=== PATIENT | male | born 1935 | race Caucasian/White ===

== ENCOUNTER 2019-11-25 09:17 | Outpatient (CLI) | payer MEDICARE, SELFPAY ==
[2019-11-25 13:16] LABS: Blood Urea Nitrogen 17 mg/dL (9-20); Carbon Dioxide 28 mmol/L (22-30); Chloride 105 mmol/L (98-107); Cholesterol 135 mg/dL (0-200); Estimated Glomerular Filt Rate > 60; Glucose 98 mg/dL (75-110); HDL Direct 40 mg/dL; Potassium 4.5 mmol/L (3.4-5.0); Sodium 137 mmol/L (137-145); Triglycerides 55 mg/dL (<150)
[2019-11-25 13:26] LABS: LDL Cholesterol Direct 88 mg/dL
[2019-11-25 14:26] LABS: Hemoglobin A1C 5.9 % (<5.7)
== END 2019-11-25 09:18 | disposition home or self-care (01) ==
LOC: ANHWCLAB 09:23
PROVIDERS: PCP Internal Medicine; Visit Provider Internal Medicine
DX: E78.2 Mixed hyperlipidemia (principal); R73.03 Prediabetes; Z79.899 Other long term (current) drug therapy
CPT/HCPCS: 36415; 80048; 80061; 83036

== ENCOUNTER 2020-03-11 08:37 | Outpatient (CLI) | payer MEDICARE, SELFPAY ==
--- NOTE | 2020-03-11 | EST_ITS ---
Patient Info Name: Jarrell Stephens Age: 84 years : 1935 Gender: Male Ht: 70 in Wt: 170 lbs BSA: 1.96 m2 Exam Date: 03/11/2020 10:14 AM Exam Location: [facility] Stress Patient Status: Outpatient Admit Date: 03/11/2020 Staff Ordering Physician: Carlos Garcia MD Attending Provider: Carlos Garcia MD Exercise Physician: Alex Myers DO Exam Type: CA stress regina w NM Study Info A regadenoson stress test was performed. Summary 1. 1. Negative lexiscan stress test for ischemic ST changes by ECG criteria. 2. 2. Stable hemodynamics throughout the test. 3. 3. Nuclear scan to follow and will be reported separately. Please correlate with it. 4. 4. Patient informed of the above results. Protocol: Lexiscan Stress ECG Details Stage: REST Duration (min): 2 min : 31 sec HR (bpm): 74 SBP (mmHg): 117 DBP (mmHg): 66 Stage: REST Duration (min): 26 min : 53 sec HR (bpm): 70 SBP (mmHg): 117 DBP (mmHg): 66 Stage: STAGE 1 Duration (min): 1 min : 0 sec HR (bpm): 90 SBP (mmHg): 122 DBP (mmHg): 65 Stage: RECOVERY Duration (min): 1 min : 0 sec HR (bpm): 97 SBP (mmHg): 122 DBP (mmHg): 65 Stage: RECOVERY Duration (min): 2 min : 0 sec HR (bpm): 94 SBP (mmHg): 122 DBP (mmHg): 65 Stage: RECOVERY Duration (min): 3 min : 0 sec HR (bpm): 84 SBP (mmHg): 136 DBP (mmHg): 64 Stage: RECOVERY Duration (min): 3 min : 1 sec HR (bpm): 84 SBP (mmHg): 136 DBP (mmHg): 64 Rest HR: 70 bpm Peak HR: 103 bpm Rest Sys BP: 117 mmHg Peak Sys BP: 136 mmHg Max Pred HR: 138 bpm % Max Pred HR: 75 % Target HR: 117 bpm Max RPP: 14,008 bpm*mmHg Termination Reason: Completed protocol Cardiac Symptoms: Shortness of breath Total Time: 1 min : 0 sec Rest Waggoner BP: 66 mmHg Peak Waggoner BP: 64 mmHg Total Dose: 0.4 mg Resting ECG Sinus rhythm, IVCD. Stress ECG No ST changes. Arrhythmias None. Report Signatures
--- NOTE | ~2020-03-11 | NM_ITS ---
EXAMINATION: NM regina stress w perfusion DATE: 03/11/2020 14:30 INDICATION: Calcification of coronary artery TECHNIQUE: Rest images were obtained following intravenous administration of 10 mCi Tc99m tetrofosmin (Myoview). The patient was infused intravenously with Lexiscan (Regadenoson). Then, 29.3 mCi Tc99m t etrofosmin (Myoview) was administered intravenously, and stress images were obtained in supine positi on. Additional stress images were obtained in prone position. Data was reconstructed into short axis and horizontal and vertical long axis SPECT images. Gated SPECT images were also obtained. COMPARISON: None. FINDINGS: Likely diaphragmatic attenuation artifact at the mid inferior and mid inferoseptal gomes of both the rest and stress supine images which normalizes on prone imaging. There is no definite reversible or f ixed perfusion abnormality to suggest ischemia or infarction. There is normal left ventricular chamb er size, wall motion and ejection fraction. Left ventricular ejection fraction measures 67%. IMPRESSION: 1. Normal myocardial perfusion at rest and during stress. 2. Left ventricular ejection fraction measuring 67%. Reviewed, dictated and finalized at location A.
== END 2020-03-11 08:38 | disposition home or self-care (01) ==
PROVIDERS: PCP Internal Medicine; Visit Provider Internal Medicine
DX: I25.10 Atherosclerotic heart disease of native coronary artery without angina pectoris (principal)
CPT/HCPCS: 78452; 93017; A9502; J2785

== ENCOUNTER 2020-03-23 08:24 | Outpatient (CLI) | payer MEDICARE, SELFPAY ==
[2020-03-23 09:12] LABS: Blood Urea Nitrogen 17 mg/dL (9-20); Calcium 8.7 mg/dL (8.4-10.2); Carbon Dioxide 27 mmol/L (22-30); Chloride 103 mmol/L (98-107); Cholesterol 140 mg/dL (0-200); Estimated Glomerular Filt Rate > 60; Glucose 105 mg/dL (75-110); HDL Direct 34 mg/dL; Potassium 4.4 mmol/L (3.4-5.0); Sodium 138 mmol/L (137-145); Triglycerides 75 mg/dL (<150)
[2020-03-23 09:13] LABS: Basophils Absolute Auto 0.1 K/mm3 (0.0-0.1); Basophils Percent Auto 0.8 % (0.2-1.2); Eosinophils Absolute Auto 0.2 K/mm3 (0-0.3); Eosinophils Percent Auto 2.7 % (0-4.4); Hematocrit 48.9 % (42.0-52.0); Hemoglobin 15.8 g/dL (14.0-18.0); Immature Granulocyte Absolute 0.02 K/mm3 (0.00-0.031); Immature Granulocyte Percent A 0.3 % (0-0.5); Lymphocytes Absolute Auto 0.99 K/mm3 (0.9-3.2); Lymphocytes Percent Auto 15.9 % (18.3-44.2); Mean Corpuscular HGB Conc 32.3 g/dl (32-36); Mean Corpuscular Hemoglobin 29.6 pg (26-34); Mean Corpuscular Volume 91.6 fl (80-100); Mean Platelet Volume 9.9 fl (7.4-10.4); Monocytes Absolute Auto 0.7 K/mm3 (0.1-0.6); Monocytes Percent Auto 10.6 % (2.6-8.5); Neutrophils Absolute Auto 4.4 K/mm3 (1.3-6.7); Neutrophils Percent Auto 69.7 % (45.5-73.1); Platelet Count Result 245 k/mm3 (150-375); Red Blood Count 5.34 M/mm3 (4.6-6.20); White Blood Count 6.2 K/mm3 (4.5-10.0)
[2020-03-23 09:23] LABS: LDL Cholesterol Direct 82 mg/dL
[2020-03-23 09:35] LABS: Hemoglobin A1C 6.1 % (<5.7)
== END 2020-03-23 08:25 | disposition home or self-care (01) ==
PROVIDERS: PCP Internal Medicine; Visit Provider Internal Medicine
DX: R73.03 Prediabetes (principal); E78.2 Mixed hyperlipidemia
CPT/HCPCS: 36415; 80048; 80061; 83036; 85025

== ENCOUNTER 2020-08-07 07:17 | Outpatient (CLI) | payer MEDICARE, SELFPAY ==
[2020-08-07 07:32] LABS: Basophils Absolute Auto 0.1 K/mm3 (0.0-0.1); Basophils Percent Auto 1.1 % (0.2-1.2); Eosinophils Absolute Auto 0.1 K/mm3 (0-0.3); Eosinophils Percent Auto 2.6 % (0-4.4); Hematocrit 48.9 % (42.0-52.0); Hemoglobin 16.1 g/dL (14.0-18.0); Immature Granulocyte Absolute 0.02 K/mm3 (0.00-0.031); Immature Granulocyte Percent A 0.4 % (0-0.5); Lymphocytes Absolute Auto 0.99 K/mm3 (0.9-3.2); Lymphocytes Percent Auto 18.2 % (18.3-44.2); Mean Corpuscular HGB Conc 32.9 g/dl (32-36); Mean Corpuscular Hemoglobin 30.3 pg (26-34); Mean Corpuscular Volume 91.9 fl (80-100); Mean Platelet Volume 9.2 fl (7.4-10.4); Monocytes Absolute Auto 0.6 K/mm3 (0.1-0.6); Monocytes Percent Auto 10.9 % (2.6-8.5); Neutrophils Absolute Auto 3.6 K/mm3 (1.3-6.7); Neutrophils Percent Auto 66.8 % (45.5-73.1); Platelet Count Result 220 k/mm3 (150-375); Red Blood Count 5.32 M/mm3 (4.6-6.20); Red Cell Distribution Width 13.2 % (11.5-14.5); White Blood Count 5.4 K/mm3 (4.5-10.0)
[2020-08-07 07:44] LABS: Potassium 4.7 mmol/L (3.4-5.0)
[2020-08-07 07:45] LABS: Alanine Aminotransferase 17 U/L (4-50); Alkaline Phosphatase 80 U/L (38-126); Anion Gap 7 mmol/L (8-16); Aspartate Amino Transferase 25 U/L (17-59); Bilirubin,Total 0.5 mg/dL (0.2-1.3); Blood Urea Nitrogen 22 mg/dL (9-20); Calcium 8.9 mg/dL (8.4-10.2); Carbon Dioxide 32 mmol/L (22-30); Chloride 103 mmol/L (98-107); Cholesterol 136 mg/dL (0-200); Estimated Glomerular Filt Rate > 60; Glucose 109 mg/dL (75-110); HDL Direct 39 mg/dL; Sodium 142 mmol/L (137-145); Triglycerides 62 mg/dL (<150)
[2020-08-07 07:56] LABS: LDL Cholesterol Direct 78 mg/dL
[2020-08-07 08:15] LABS: Hemoglobin A1C 5.8 % (<5.7); Thyroid Stimulating Hormone 0.905 uIU/mL (0.465-4.680)
== END 2020-08-07 07:18 | disposition home or self-care (01) ==
PROVIDERS: PCP Internal Medicine; Visit Provider Internal Medicine
DX: E78.5 Hyperlipidemia, unspecified (principal); J44.9 Chronic obstructive pulmonary disease, unspecified; Z51.81 Encounter for therapeutic drug level monitoring; Z79.899 Other long term (current) drug therapy; R73.03 Prediabetes
CPT/HCPCS: 36415; 80053; 80061; 83036; 84443; 85025

== ENCOUNTER → 2020-09-29 09:13 | Outpatient (REF) | payer MEDICARE, SELFPAY | LOC: ANHLAB 09:13 | PROVIDERS: PCP Internal Medicine; Visit Provider Nurse Practitioner | DX: C44.529 Squamous cell carcinoma of skin of other part of trunk (principal); C44.629 Squamous cell carcinoma of skin of left upper limb, including shoulder | CPT/HCPCS: 88305 ==

== ENCOUNTER → 2020-11-16 09:04 | Outpatient (REF) | payer MEDICARE, SELFPAY | LOC: ANHLAB 09:04 | PROVIDERS: PCP Internal Medicine; Visit Provider Nurse Practitioner | DX: C44.529 Squamous cell carcinoma of skin of other part of trunk (principal); C44.629 Squamous cell carcinoma of skin of left upper limb, including shoulder | CPT/HCPCS: 88305; 88331 ==

== ENCOUNTER 2020-12-31 08:06 | Outpatient (CLI) | payer MEDICARE, SELFPAY ==
[2020-12-31 09:07] LABS: Anion Gap 4 mmol/L (8-16); Blood Urea Nitrogen 16 mg/dL (9-20); Calcium 8.9 mg/dL (8.4-10.2); Carbon Dioxide 33 mmol/L (22-30); Chloride 103 mmol/L (98-107); Cholesterol 138 mg/dL (0-200); Estimated Glomerular Filt Rate > 60; Glucose 99 mg/dL (75-110); HDL Direct 39 mg/dL; Potassium 4.3 mmol/L (3.4-5.0); Sodium 140 mmol/L (137-145); Triglycerides 65 mg/dL (<150)
[2020-12-31 09:18] LABS: LDL Cholesterol Direct 82 mg/dL
[2020-12-31 09:32] LABS: Hemoglobin A1C 5.8 % (<5.7)
[2021-01-02 23:36] LABS: Homocysteine 14.8 umol/L (<11.4)
[2021-01-03 23:02] LABS: Vitamin D 1,25 (OH)2 Total 39 pg/mL (18-72); Vitamin D2 1,25 (OH)2 <8 pg/mL; Vitamin D3 1,25 (OH)2 39 pg/mL
== END 2020-12-31 08:07 | disposition home or self-care (01) ==
PROVIDERS: PCP Internal Medicine; Visit Provider Internal Medicine
DX: E55.9 Vitamin D deficiency, unspecified (principal); R73.03 Prediabetes; R79.89 Other specified abnormal findings of blood chemistry; E78.2 Mixed hyperlipidemia; Z79.899 Other long term (current) drug therapy
CPT/HCPCS: 36415; 80048; 80061; 82652; 83036; 83090; 84443

== ENCOUNTER 2021-05-21 07:41 | Outpatient (CLI) | payer MEDICARE, SELFPAY ==
[2021-05-21 08:57] LABS: Basophils Percent Auto 0.5 % (0.2-1.2); Eosinophils Absolute Auto 0.2 K/mm3 (0-0.3); Eosinophils Percent Auto 2.6 % (0-4.4); Hematocrit 47.9 % (42.0-52.0); Hemoglobin 15.5 g/dL (14.0-18.0); Immature Granulocyte Absolute 0.01 K/mm3 (0.00-0.031); Immature Granulocyte Percent A 0.2 % (0-0.5); Lymphocytes Absolute Auto 0.92 K/mm3 (0.9-3.2); Lymphocytes Percent Auto 15.7 % (18.3-44.2); Mean Corpuscular HGB Conc 32.4 g/dl (32-36); Mean Corpuscular Hemoglobin 30.3 pg (26-34); Mean Corpuscular Volume 93.7 fl (80-100); Mean Platelet Volume 9.4 fl (7.4-10.4); Monocytes Absolute Auto 0.6 K/mm3 (0.1-0.6); Monocytes Percent Auto 9.9 % (2.6-8.5); Neutrophils Absolute Auto 4.2 K/mm3 (1.3-6.7); Neutrophils Percent Auto 71.1 % (45.5-73.1); Platelet Count Result 234 k/mm3 (150-375); Red Blood Count 5.11 M/mm3 (4.6-6.20); Red Cell Distribution Width 12.8 % (11.5-14.5); White Blood Count 5.9 K/mm3 (4.5-10.0)
[2021-05-21 09:11] LABS: Anion Gap 7 mmol/L (8-16); Blood Urea Nitrogen 18 mg/dL (9-20); Calcium 8.7 mg/dL (8.4-10.2); Carbon Dioxide 28 mmol/L (22-30); Chloride 103 mmol/L (98-107); Cholesterol 134 mg/dL (0-200); Estimated Glomerular Filt Rate > 60; Glucose 95 mg/dL (65-110); HDL Direct 37 mg/dL; Potassium 4.1 mmol/L (3.4-5.0); Sodium 138 mmol/L (137-145); Triglycerides 49 mg/dL (<150)
[2021-05-21 09:21] LABS: LDL Cholesterol Direct 71 mg/dL
[2021-05-21 10:26] LABS: Free T4 Free Thyroxine 1.13 ng/mL (0.78-2.19)
[2021-05-24 21:08] LABS: Homocysteine 12.3 umol/L (<11.4)
== END 2021-05-21 07:42 | disposition home or self-care (01) ==
PROVIDERS: PCP Internal Medicine; Visit Provider Internal Medicine
DX: E78.2 Mixed hyperlipidemia (principal); Z79.899 Other long term (current) drug therapy; R73.03 Prediabetes; R79.89 Other specified abnormal findings of blood chemistry
CPT/HCPCS: 36415; 80048; 80061; 83036; 83090; 84439; 84443; 85025

== ENCOUNTER 2021-10-05 07:08 | Outpatient (CLI) | payer MEDICARE, SELFPAY ==
[2021-10-05 08:03] LABS: Basophils Absolute Auto 0.1 K/mm3 (0.0-0.1); Basophils Percent Auto 0.8 % (0.2-1.2); Eosinophils Absolute Auto 0.3 K/mm3 (0-0.3); Eosinophils Percent Auto 4.8 % (0-4.4); Hematocrit 49.1 % (42.0-52.0); Hemoglobin 16.2 g/dL (14.0-18.0); Immature Granulocyte Absolute 0.03 K/mm3 (0.00-0.031); Immature Granulocyte Percent A 0.5 % (0-0.5); Lymphocytes Absolute Auto 0.86 K/mm3 (0.9-3.2); Lymphocytes Percent Auto 14.2 % (18.3-44.2); Mean Corpuscular Hemoglobin 30.7 pg (26-34); Mean Platelet Volume 9.4 fl (7.4-10.4); Monocytes Absolute Auto 0.6 K/mm3 (0.1-0.6); Monocytes Percent Auto 10.2 % (2.6-8.5); Neutrophils Absolute Auto 4.2 K/mm3 (1.3-6.7); Neutrophils Percent Auto 69.5 % (45.5-73.1); Platelet Count Result 261 k/mm3 (150-375); Red Blood Count 5.28 M/mm3 (4.6-6.20); Red Cell Distribution Width 12.8 % (11.5-14.5); White Blood Count 6.1 K/mm3 (4.5-10.0)
[2021-10-05 08:15] LABS: Alanine Aminotransferase 18 U/L (4-50); Albumin Level 4.2 g/dL (3.5-5.1); Alkaline Phosphatase 96 U/L (38-126); Anion Gap 7 mmol/L (8-16); Aspartate Amino Transferase 25 U/L (17-59); Bilirubin,Total 0.5 mg/dL (0.2-1.3); Blood Urea Nitrogen 16 mg/dL (9-20); Carbon Dioxide 32 mmol/L (22-30); Chloride 101 mmol/L (98-107); Cholesterol 159 mg/dL (0-200); Estimated Glomerular Filt Rate 58; Glucose 104 mg/dL (65-110); HDL Direct 36 mg/dL; Potassium 4.2 mmol/L (3.4-5.0); Sodium 140 mmol/L (137-145); Triglycerides 62 mg/dL (<150)
[2021-10-05 08:26] LABS: LDL Cholesterol Direct 92 mg/dL
[2021-10-05 08:28] LABS: Hemoglobin A1C 5.8 % (<5.7)
[2021-10-05 08:49] LABS: Add Urine Microscopic? NO; Appearance Urine Clear (Clear); Bilirubin Urine Negative (Negative); Blood Urine Negative (Negative); Color Urine Yellow (Yellow); Glucose Urine UA Negative (Negative); Ketones Urine Negative (Negative); Leukocyte Esterase Ur Negative LEU/UL (Negative); Nitrate Urine Negative (Negative); Protein Urine Negative (Negative); Urobilinogen Urine Negative mg/dL (<2.0)
== END 2021-10-05 07:09 | disposition home or self-care (01) ==
PROVIDERS: PCP Internal Medicine; Visit Provider Internal Medicine
DX: R73.03 Prediabetes (principal); E78.2 Mixed hyperlipidemia; E55.9 Vitamin D deficiency, unspecified; Z13.29 Encounter for screening for other suspected endocrine disorder; Z79.899 Other long term (current) drug therapy
CPT/HCPCS: 36415; 80053; 80061; 81003; 82306; 83036; 84439; 84443; 85025

== ENCOUNTER 2022-02-22 09:13 | Outpatient (CLI) | payer MEDICARE, SELFPAY ==
[2022-02-22 09:31] LABS: Basophils Absolute Auto 0.1 K/mm3 (0.0-0.1); Basophils Percent Auto 0.8 % (0.2-1.2); Eosinophils Absolute Auto 0.1 K/mm3 (0-0.3); Eosinophils Percent Auto 1.3 % (0-4.4); Hematocrit 46.8 % (42.0-52.0); Hemoglobin 15.8 g/dL (14.0-18.0); Immature Granulocyte Absolute 0.03 K/mm3 (0.00-0.031); Immature Granulocyte Percent A 0.4 % (0-0.5); Lymphocytes Absolute Auto 0.87 K/mm3 (0.9-3.2); Lymphocytes Percent Auto 12.1 % (18.3-44.2); Mean Corpuscular HGB Conc 33.8 g/dl (32-36); Mean Corpuscular Hemoglobin 30.6 pg (26-34); Mean Corpuscular Volume 90.5 fl (80-100); Mean Platelet Volume 9.3 fl (7.4-10.4); Monocytes Absolute Auto 0.7 K/mm3 (0.1-0.6); Monocytes Percent Auto 9.3 % (2.6-8.5); Neutrophils Absolute Auto 5.5 K/mm3 (1.3-6.7); Neutrophils Percent Auto 76.1 % (45.5-73.1); Platelet Count Result 251 k/mm3 (150-375); Red Blood Count 5.17 M/mm3 (4.6-6.20); Red Cell Distribution Width 12.8 % (11.5-14.5); White Blood Count 7.2 K/mm3 (4.5-10.0)
[2022-02-22 09:58] LABS: Alanine Aminotransferase 14 U/L (6-50); Albumin Level 4.1 g/dL (3.5-5.1); Alkaline Phosphatase 95 U/L (38-126); Anion Gap 5 mmol/L (8-16); Aspartate Amino Transferase 21 U/L (17-59); Bilirubin,Total 0.5 mg/dL (0.2-1.3); Blood Urea Nitrogen 18 mg/dL (9-20); Calcium 8.5 mg/dL (8.4-10.2); Carbon Dioxide 30 mmol/L (22-30); Chloride 104 mmol/L (98-107); Cholesterol 141 mg/dL (0-200); Estimated Glomerular Filt Rate > 60; Glucose 95 mg/dL (65-110); HDL Direct 36 mg/dL; Potassium 4.5 mmol/L (3.4-5.0); Sodium 139 mmol/L (137-145); Triglycerides 46 mg/dL (<150)
[2022-02-22 10:00] LABS: Hemoglobin A1C 5.8 % (<5.7)
[2022-02-22 10:09] LABS: LDL Cholesterol Direct 85 mg/dL
[2022-02-22 10:21] LABS: Free T4 Free Thyroxine 0.98 ng/mL (0.78-2.19)
== END 2022-02-22 09:14 | disposition home or self-care (01) ==
LOC: ANHLAB 09:15
PROVIDERS: PCP Internal Medicine; Visit Provider Internal Medicine
DX: Z79.899 Other long term (current) drug therapy (principal); E78.2 Mixed hyperlipidemia; Z13.29 Encounter for screening for other suspected endocrine disorder; R73.03 Prediabetes
CPT/HCPCS: 36415; 80053; 80061; 83036; 84439; 84443; 85025

== ENCOUNTER 2022-04-16 14:06 | Inpatient (IN) | payer MEDICARE, SELFPAY ==
[2022-04-16] VITALS (23 sets, daily range): BP systolic 100–144; BP diastolic 63–83; PULSE 79–106; RESP 16–33; TEMP 36.9–37.7; O2SAT 95–100; BMI 22.4
--- NOTE | ~2022-04-16 | CT_ITS ---
EXAMINATION: CTA chest PE protocol DATE: 04/17/2022 15:29 INDICATION: chest pain, Dyspnea TECHNIQUE: Computed tomography angiography (CTA) of the chest was performed with 100 mL Omnipaque-350 intravenous contrast timed to evaluate the pulmonary arteries. Coronal maximum intensity projection 3D-reconstructions were created by the technologist. The dose-length product (DLP) was 375.80 mGy-cm. Automated exposure control and iterative reconstruction technique were employed. COMPARISON: CT thorax 04/17/2007. Chest x-ray 04/16/2022. FINDINGS: Lung parenchyma and airways: Stable calcified scarring in the left upper lobe. Nodular soft tissue de nsity/scar posterior right lower lobe superior segment. 1.4 cm pulmonary nodule in the medial left lo wer lobe with eccentric calcification. Severe emphysematous change and bibasilar atelectasis. Pleura: Unremarkable. Thoracic inlet, axillae and chest wall: Unremarkable. Thoracic aorta: Mild ectasia and arch calcification. Mediastinum: Chronic enlargement calcification of a subcarinal lymph node. Otherwise normal. Heart and pericardium: Normal. Coronary artery calcifications: Mild. Upper abdomen: No significant finding. Bones: No acute osseous finding. Pulmonary arteries: Study quality: Adequate. No pulmonary emboli detected. IMPRESSION: No CT evidence of acute pulmonary embolus. 1.4 cm medial left lower lobe pulmonary nodule. Nodular sc arring/infectious changes versus pleural-based mass in the superior segment right lower lobe. Further evaluation is recommended with either PET/CT, CT-guided biopsy, or follow-up contrast-enhanced chest CT in 3 months. Reviewed, dictated and finalized at location K. IMPRESSION: No CT evidence of acute pulmonary embolus. 1.4 cm medial left lower lobe pulmon evan nodule. Nodular scarring/infectious changes versus pleural-based mass in th e superior segment right lower lobe. Further evaluation is recommended with eit her PET/CT, CT-guided biopsy, or follow-up contrast-enhanced chest CT in 3 allen hs.
--- NOTE | ~2022-04-16 | XR_ITS ---
EXAMINATION: XR chest 2V Exam Date/Time: 04/16/2022 14:29 CDT HISTORY: sob Comparison: 10/13/2014 and 04/05/2007. RESULT: Lines, tubes, and devices: None. Lungs and pleura: Emphysema, left upper lobe scar. Right midlung and bibasilar scar/atelectasis. Sen escent change. Cardiomediastinal silhouette: Stable. Other: No acute osseous or upper abdominal finding. IMPRESSION: No acute cardiopulmonary process. Reviewed, dictated and finalized at location K.
--- NOTE | ~2022-04-16 | XR_ITS ---
EXAMINATION: XR chest 1V portable DATE: 04/18/2022 06:37 INDICATION: Dyspnea. TECHNIQUE: A single frontal view of the chest was obtained on 2 radiographs. COMPARISON: Chest 2 views 04/16/2022, chest CT 04/17/2022 FINDINGS: There are lucencies in the lungs, consistent with emphysema. There is bandlike scarring in left upper lobe. There are mild airspace opacities in right midlung zone and the lower lung zones. No pleural effusion or pneumothorax. The heart size is normal. IMPRESSION: 1. Stable mild airspace opacities in right midlung zone and the lower lung zones, consistent with ate lectasis/scarring versus pneumonia. 2. Severe emphysema. Reviewed, dictated and finalized at location A. IMPRESSION: 1. Stable mild airspace opacities in right midlung zone and the lower lung zone s, consistent with atelectasis/scarring versus pneumonia. 2. Severe emphysema.
--- NOTE | 2022-04-16 14:11 | ECG_ITS ---
Measurements Intervals [place] Rate: 102 P: 86 TN: 153 QRS: 45 QRSD: 93 T: 67 QT: 306 QTc: 400 Interpretive Statements BASELINE MOTION ARTIFACT SINUS TACHYCARDIA LEFTWARD AXIS LOW VOLTAGE IN THE LIMB LEADS BORDERLINE ECG NO PREVIOUS ECG AVAILABLE FOR COMPARISON Electronically Signed On 04-17-2022 8:18:42 CDT by Ranjith Emerson M.D.
[2022-04-16 14:32] LABS: Basophils Percent Auto 0.4 % (0.2-1.2); Eosinophils Percent Auto 0.1 % (0-4.4); Hematocrit 48.2 % (42.0-52.0); Hemoglobin 15.8 g/dL (14.0-18.0); Immature Granulocyte Absolute 0.03 K/mm3 (0.00-0.031); Immature Granulocyte Percent A 0.3 % (0-0.5); Lymphocytes Absolute Auto 0.66 K/mm3 (0.9-3.2); Lymphocytes Percent Auto 6.6 % (18.3-44.2); Mean Corpuscular HGB Conc 32.8 g/dl (32-36); Mean Corpuscular Hemoglobin 29.4 pg (26-34); Mean Corpuscular Volume 89.8 fl (80-100); Mean Platelet Volume 9.2 fl (7.4-10.4); Monocytes Absolute Auto 0.7 K/mm3 (0.1-0.6); Monocytes Percent Auto 6.8 % (2.6-8.5); Neutrophils Absolute Auto 8.6 K/mm3 (1.3-6.7); Neutrophils Percent Auto 85.8 % (45.5-73.1); Platelet Count Result 255 k/mm3 (150-375); Red Blood Count 5.37 M/mm3 (4.6-6.20); Red Cell Distribution Width 12.7 % (11.5-14.5)
[2022-04-16 14:41] LABS: Alanine Aminotransferase 24 U/L (6-50); Albumin Level 4.2 g/dL (3.5-5.1); Alkaline Phosphatase 101 U/L (38-126); Anion Gap 9 mmol/L (8-16); Aspartate Amino Transferase 32 U/L (17-59); Bilirubin,Total 0.8 mg/dL (0.2-1.3); Blood Urea Nitrogen 14 mg/dL (9-20); Calcium 8.9 mg/dL (8.4-10.2); Carbon Dioxide 26 mmol/L (22-30); Chloride 100 mmol/L (98-107); Estimated CRCL calculation 65 ml/min; Estimated Glomerular Filt Rate > 60; Glucose 167 mg/dL (65-110); Potassium 4.4 mmol/L (3.4-5.0); Sodium 135 mmol/L (137-145)
[2022-04-16 15:08] LABS: SARS-CoV-2 RNA PCR Negative
--- NOTE | 2022-04-16 16:17 | ECG_ITS ---
Measurements Intervals [place] Rate: 86 P: 65 HI: 150 QRS: 23 QRSD: 98 T: 68 QT: 339 QTc: 408 Interpretive Statements SINUS RHYTHM EARLY REPOLARIZATION COMPARED TO ECG 04/16/2022 14:17:12 NO SIGNIFICANT CHANGE, CURRENT ECG IS OF BETTER QUALITY Electronically Signed On 04-17-2022 8:20:08 CDT by Ranjith Emerson M.D.
[2022-04-16 16:45] LABS: D Dimer 0.56 ug/mL (<0.48)
[2022-04-16 16:57] LABS: Troponin I < 0.012 ng/mL (0.000-0.034)
[2022-04-16] MEDS: HEPARIN SOD/D5W 100 UNITS/ML 25,000 UNITS/250 ML BAG 9 UNITS IV CONT (16:58)
[2022-04-16] MEDS: HEPARIN SODIUM 5,000 UNITS/ML VIAL 4000 UNITS IV PUSH (16:59)
[2022-04-16] MEDS: ASPIRIN 81 MG CHEWABLE TABLET 324 MG PO (16:59)
--- NOTE | 2022-04-16 17:09 | ED.SOB ---
HPI - SOB/Dyspnea General Chief Complaint: Shortness of Breath/Dyspnea Stated Complaint: sob,chest, body aches Time Seen by Provider: 04/16/22 14:14 History of Present Illness HPI Narrative: 86yoM p/w 1wk of increasing dyspnea, worse with exertion. Denies any chest pain, n/v, diaphoresis. H/o COPD and CHF, hasn't tried inhalers, no leg swelling. Related Data Home Medications Medication Instructions Recorded Confirmed montelukast 10 mg tablet 10 mg PO DAILY 07/26/19 03/07/22 tiotropium bromide 18 mcg capsule 1 cap inhalation DAILY 07/26/19 03/07/22 with inhalation device (Spiriva with HandiHaler) trazodone 50 mg tablet 50 mg PO QHS PRN 01/13/21 03/07/22 fluticasone furoate 100 1 inh inhalation DAILY 03/04/22 03/07/22 mcg-vilanterol 25 mcg/dose inhalation powder (Breo Ellipta) Allergies Allergy/AdvReac Type Severity Reaction Status Date / Time No Known Allergies Allergy Verified 03/04/22 09:14 Review of Systems Review of Systems: CONST: No fever. HEENT: No sore throat C/V: No chest pain RESP: Shortness of breath GI: No abdominal pain : No dysuria. M/S: No joint pain. SKIN: No rash. NEURO: [No headache or focal numbness or weakness] PSYCH: [No depression] [facility] Past Medical History Medical History BMI 23.0-23.9, adult BMI 25.0-25.9,adult COPD (chronic obstructive pulmonary disease) Elevated homocysteine Encounter for Medicare annual wellness exam Encounter for routine adult health examination without abnormal findings Hearing loss Hx of colonic polyps Hyperlipidemia Lung nodule Non-healing skin lesion Non-healing wound On chcf drug therapy ROCKY on CPAP Pre-diabetes Family History Family History Mother Patient's mother is Social History Social History Smoking status: Former smoker Smoking end date: 09/11/79 Alcohol intake: never Exam Narrative: EXAMINATION OF ORGAN SYSTEMS/BODY AREAS: Constitutional: Vital signs per nursing GENERAL:Appears dyspneic on exam HEAD: Normal with no signs of head trauma. EYES: EOMI, conjunctiva normal ENT: Hearing grossly intact LUNGS: Labored respirations speaking in 3 word sentences HEART: Tachycardic ABD: [Soft], [nontender to palpation] EXT: Normal range of motion, no WESLEY SKIN: [No rashes or lesions.] NEURO: [Alert and oriented x 3. No gross focal sensory or strength deficits.] PSYCH: Normal affect Course Vital Signs Vital signs: Vital Signs Temperature 99.9 F H 04/16/22 14:12 Pulse Rate 106 H 04/16/22 14:12 Respiratory Rate 33 H 04/16/22 14:12 Blood Pressure 134/74 04/16/22 14:12 Pulse Oximetry 95 04/16/22 14:12 Oxygen Delivery Nasal Cannula 04/16/22 14:12 Oxygen Flow Rate 4 04/16/22 14:12 Temperature 99.9 F H 04/16/22 14:12 Pulse Rate 89 04/16/22 16:18 Respiratory Rate 20 04/16/22 16:18 Blood Pressure 105/64 04/16/22 16:18 Pulse Oximetry 98 04/16/22 16:18 Oxygen Delivery BiPAP 04/16/22 14:40 Oxygen Flow Rate 4 04/16/22 14:27 MDM - SOB/Dyspnea MDM Narrative Medical decision making narrative: 86-year-old male presenting with increasing dyspnea over the past week. Vital signs notable for elevated temperature, respiratory rate, and heart rate. My differential includes pneumonia, COPD or CHF exacerbation, PE, ACS/DC. Given the patient's dyspnea, I did place him on BiPAP. Initial EKG by my interpretation does not show any acute STEMI, though there is a very wandering baseline despite several attempts due to the patient's work of breathing. Therefore obtained a second EKG after patient had been on BiPAP, when he is now resting comfortably without any labored respirations. Repeat EKG on my interpretation shows dynamic changes and now shows acute STEMI, with ST elevations in inferior leads and ST depression in
[2022-04-16 17:12] LABS: INR 1.2; Prothrombin Time 14.7 Seconds (11.1-14.7)
[2022-04-16 17:13] LABS: Partial Thromboplastin Time 28.8 SECONDS (22.3-36.8)
--- NOTE | 2022-04-16 18:04 | PM.IMHP ---
H&P: HPI History of Present Illness Date/Time: 04/16/22 18:04 Chief Complaint: Shortness of breath/intermittent chest pain Narrative: this is an 86-year-old man I am seeing briefly as he is being prepared for emergency coronary angiography as STEMI has been declared an activated by the ER physician. The patient has no previous history of coronary artery disease. He came to the emergency room with episodes of chest pain that have been intermittent for the last several days. He also was experiencing significant air hunger since last week which became more severe today. He was in the emergency room for a couple of hours and his 1st electrocardiogram was benign although it did have some motion artifact. A 2nd electrocardiogram was done which was interpreted by the ER physician as showing acute inferior current of injury with reciprocal depression was then summoned to come in and perform an emergency angiogram. My personal review of EKG honestly I do not sure that opinion I do not see any evidence of an acute current of injury. I was told that he had a history of previous coronary artery disease and intervention. 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 His EMR chart here with his primary care physician reports a history of COPD prediabetes dyslipidemia but no prior history of overt vascular disease. 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 ROCKY on CPAP Pre-diabetes Family History Family History Mother Patient's mother is Social History Social History Smoking status: Former smoker Smoking end date: 09/11/79 Alcohol intake: never Meds Home Medications and Allergies Home Medications Medication Instructions Recorded Confirmed Type montelukast 10 mg tablet 10 mg PO DAILY 07/26/19 03/07/22 History tiotropium bromide 18 mcg capsule 1 cap inhalation DAILY 07/26/19 03/07/22 History with inhalation device (Spiriva with HandiHaler) trazodone 50 mg tablet 50 mg PO QHS PRN 01/13/21 03/07/22 History atorvastatin 20 mg tablet See Rx Instructions .Route 11/22/21 03/07/22 Rx .COMPLEX #90 tabs fluticasone furoate 100 1 inh inhalation DAILY 03/04/22 03/07/22 History mcg-vilanterol 25 mcg/dose inhalation powder (Breo Ellipta) Allergies Allergy/AdvReac Type Severity Reaction Status Date / Time No Known Allergies Allergy Verified 03/04/22 09:14 Vital Signs Vital Signs - 24 hr 04/16/22 14:12 04/16/22 14:26 04/16/22 14:27 Temperature 37.7 C H Pulse Rate 106 H 102 H Respiratory Rate 33 H Blood Pressure 134/74 Pulse Oximetry 95 97 Oxygen Delivery Nasal Cannula Nasal Cannula Oxygen Flow Rate 4 4 04/16/22 14:27 04/16/22 14:40 04/16/22 15:18 Temperature Pulse Rate 102 H 94 Respiratory Rate 31 H 20 Blood Pressure 126/69 Pulse Oximetry 97 99 98 Oxygen Delivery Nasal Cannula BiPAP Oxygen Flow Rate 4 04/16/22 16:18 04/16/22 17:23 Temperature Pulse Rate 89 98 Respiratory Rate 20 18 Blood Pressure 105/64 112/69 Pulse Oximetry 98 98 Oxygen Delivery Oxygen Flow Rate Exam Const: General: comfortable and no acute distress Other: Elderly white
--- NOTE | 2022-04-16 18:10 | WPDCARDPROC ---
Cardiac Cath Procedure Note Date of procedure:: 04/16/22 Performing physician:: Ranjith Emerson MD Indication:: ST-elevation [place] declared by ED Brief clinical history:: this is an 86-year-old man who came to the emergency room earlier today reporting episodes of some intermittent chest pain as well as dyspnea. STEMI was declared by the ED staff and patient was brought to the laboratory immunologist in that setting. Procedure Procedure performed:: Emergency coronary angiography left ventriculography right femoral angiography Sedation/Medication given:: fentanyl 25 mg Versed 2 mg case start time 5:39 p.m. case end time 5:59 p.m. Access site:: right femoral artery Estimated blood loss:: 25 cc Procedure note:: this patient was brought to the cardiac catheterization lab in the emergency setting where the right groin was prepped and draped in the usual fashion. Anesthesia was provided with 1% lidocaine infiltrated locally. Using the modified Seldinger technique the femoral artery was punctured and a 5 Togolese vascular sheath was placed. After this I used a 5 Togolese FL4 catheter to engage and inject the left coronary artery in multiple projections. There was tortuosity in the iliac vessel on the advancing this catheter into the central aorta so all subsequent catheter exchanges were carried out in the descending abdominal aorta over the guidewire. I attempted to engage the right coronary artery using a JR4 catheter this was unsuccessful I engaged the right coronary artery nicely with a WRP catheter for angiography. Following this a left ventriculogram was done with a 5 Togolese angled pigtail catheter and left-sided hemodynamics were demonstrated. Pullback pressures were demonstrated across the aortic valve. Procedure was then terminated the sheath was sutured into position the patient was taken to ICU for post cath recovery. Findings:: Hemodynamics: The central aortic pressure was 84 over 38 left ventricle 106/0 end-diastolic pressure of 8 there is 20 mm gradient on pullback across the aortic valve. Left ventricle: The left ventricle is normal in size all segments contract appropriately the global ejection fraction is 60-65%. The left main coronary artery is large in caliber and nicely patent the left anterior descending is a small to medium caliber the standing down to and just before the cardiac apex it turned Ty. The LAD has Mild luminal irregularity but no flow-limiting disease is identified. circumflex is a moderate caliber vessel giving rise to the marginal branches. The circumflex system also has minimal luminal irregularities but no flow-limiting disease is present. The right coronary artery is large in caliber and dominant to the posterior circulation. The right coronary artery has very mild atherosclerotic irregularities it is widely patent with no flow-limiting disease. Conclusion:: 1. Right coronary dominant circulation with no significant coronary artery disease 2. well-preserved left ventricular systolic function 3. mild aortic valve stenosis with 20 mm transvalvular gradient 4. false alarm activation for ST elevation [place] Ranjith Emerson MD [facility]
[2022-04-16 19:41] LABS: Basophils Percent Auto 0.4 % (0.2-1.2); Eosinophils Percent Auto 0.2 % (0-4.4); Hematocrit 45.5 % (42.0-52.0); Hemoglobin 14.9 g/dL (14.0-18.0); Immature Granulocyte Absolute 0.05 K/mm3 (0.00-0.031); Immature Granulocyte Percent A 0.5 % (0-0.5); Lymphocytes Absolute Auto 1.06 K/mm3 (0.9-3.2); Mean Corpuscular HGB Conc 32.7 g/dl (32-36); Mean Corpuscular Hemoglobin 29.7 pg (26-34); Mean Corpuscular Volume 90.8 fl (80-100); Mean Platelet Volume 8.9 fl (7.4-10.4); Monocytes Absolute Auto 1.2 K/mm3 (0.1-0.6); Monocytes Percent Auto 11.7 % (2.6-8.5); Neutrophils Absolute Auto 8.2 K/mm3 (1.3-6.7); Neutrophils Percent Auto 77.2 % (45.5-73.1); Platelet Count Result 244 k/mm3 (150-375); Red Blood Count 5.01 M/mm3 (4.6-6.20); White Blood Count 10.6 K/mm3 (4.5-10.0)
[2022-04-16 19:53] LABS: Partial Thromboplastin Time 40.2 SECONDS (22.3-36.8)
[2022-04-16 20:04] LABS: Troponin I < 0.012 ng/mL (0.000-0.034)
[2022-04-16] MEDS: SODIUM CHLORIDE 0.9% IV 1,000 ML 125 ML IV CONT (20:53)
--- NOTE | 2022-04-16 22:00 | WPDCN ---
Assessment and Plan Assessment and plan (1) Chest pain: Code(s): R07.9 - Chest pain, unspecified Status: Acute Assessment and Plan: STEMI activated in the emergency department though cardiac catheterization showed no significant disease. Chest pain may very well be related to over exertion recently may very well be musculoskeletal in etiology. No history to suggest a GI etiology. Pulmonary embolism seems less likely by history and his D-dimer is normal when corrected for age. While he has had increasing shortness of breath over the last 1 week, he does not really have complaints of that at this time. Continue to monitor overnight and if he is still symptomatic a CTA of the chest may be appropriate. (2) Chronic obstructive pulmonary disease: Code(s): J44.9 - Chronic obstructive pulmonary disease, unspecified Status: Acute Assessment and Plan: No evidence of acute exacerbation. (3) Chronic respiratory failure with hypoxia: Code(s): J96.11 - Chronic respiratory failure with hypoxia Status: Acute Assessment and Plan: He is at his home oxygen requirement. (4) Pre-diabetes: Code(s): R73.03 - Prediabetes Status: Acute Assessment and Plan: Recent hemoglobin A1c was under 6%. Additional Plan Thank you for allowing us to participate in this patient's care. Please do not hesitate to contact us with any questions. Supervising physician for this medical consultation is Dr. Brooklynn Shi HPI Data of Consult Date/Time: 04/16/22 20:00 Requesting Physician: Dr. Ranjith Emerson. Consult Narrative Reason for consult: Shortness of breath and chest pain. Narrative: This is a very pleasant 86-year-old male with chronic respiratory failure on 4 L nasal cannula, chronic lung disease with history of tuberculosis and asbestosis, COPD/ emphysema, sleep apnea, prediabetes, and hyperlipidemia who presented to the emergency department for evaluation of chest pain and shortness of breath. Despite his chronic lung disease and oxygen requirements, he is quite active and likes to stay busy. He [place] and mows 4 to 5 of those acres on a tractor mower in addition to mowing his neighbor's lawn. He also enjoys gardening and spends quite a bit of time outdoors. Two weeks ago he was outside mowing in the heat (between 10:00 to 20:00) and although he does carry some water with him, he does not think he had enough water and he started to feel tired and weak. He also had significant muscle cramps, mostly in his legs. He rested the next day and was feeling better the day after so and he spent about 5 hours outside in mid afternoon working in the vegetable garden. again it was very hot out and he assumes that he got overheated as he felt poorly when he got in doors with reports of chills and cramps once again. He was also experiencing a soreness throughout the anterior chest and he was feeling more short of breath than usual. The soreness in his chest seem to be worse with movement and palpation and he assumed he had sore muscles from all of the work he was doing in the heat. He once again rested for a couple of days but since that time he has continued to stay busy though he has been limiting the amount of time that he has been outside. 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 He went home early and he felt so weak that he had a hard time climbing up stairs into the house. He was also feeling quite short of breath and he felt a bit better when he turned his oxygen up to 5 L. Due to ongoing, intermittent symptoms he decided to come in today for evaluation. vital signs were stable on arrival to the emergency department. Labs were reviewed and they were reassuring. His initial EKG appeared benign thpepper
[2022-04-16 23:27] LABS: Troponin I < 0.012 ng/mL (0.000-0.034)
[2022-04-17] VITALS (16 sets, daily range): BP systolic 97–127; BP diastolic 55–72; PULSE 71–95; RESP 16–32; TEMP 36.3–36.8; O2SAT 88–100
[2022-04-17 04:39] LABS: Basophils Percent Auto 0.5 % (0.2-1.2); Eosinophils Percent Auto 0.3 % (0-4.4); Hematocrit 44.8 % (42.0-52.0); Hemoglobin 14.5 g/dL (14.0-18.0); Immature Granulocyte Absolute 0.05 K/mm3 (0.00-0.031); Immature Granulocyte Percent A 0.6 % (0-0.5); Lymphocytes Absolute Auto 0.81 K/mm3 (0.9-3.2); Lymphocytes Percent Auto 10.2 % (18.3-44.2); Mean Corpuscular HGB Conc 32.4 g/dl (32-36); Mean Corpuscular Hemoglobin 29.5 pg (26-34); Mean Corpuscular Volume 91.2 fl (80-100); Monocytes Percent Auto 12.2 % (2.6-8.5); Neutrophils Absolute Auto 6.1 K/mm3 (1.3-6.7); Neutrophils Percent Auto 76.2 % (45.5-73.1); Platelet Count Result 230 k/mm3 (150-375); Red Blood Count 4.91 M/mm3 (4.6-6.20)
[2022-04-17 04:47] LABS: Hemoglobin A1C 5.8 % (<5.7)
[2022-04-17 04:53] LABS: Anion Gap 8 mmol/L (8-16); Blood Urea Nitrogen 13 mg/dL (9-20); Calcium 8.3 mg/dL (8.4-10.2); Carbon Dioxide 25 mmol/L (22-30); Chloride 101 mmol/L (98-107); Creatine Kinase 91 U/L (55-170); Estimated CRCL calculation 62 ml/min; Estimated Glomerular Filt Rate > 60; Glucose 107 mg/dL (65-110); Magnesium 2.1 mg/dL (1.6-2.3); Potassium 4.3 mmol/L (3.4-5.0); Sodium 134 mmol/L (137-145)
[2022-04-17 05:31] LABS: Thyroid Stimulating Hormone Reflex 0.359 uIU/mL (0.465-4.68)
[2022-04-17] MEDS: FLUTICASONE/SALMETEROL 115-21 MCG INHALER 1 PUFF 2 PUFF INHALATION ×2 (08:14→20:54)
[2022-04-17] MEDS: UMECLIDINIUM BROMIDE 62.5 MCG ELLIPTA 1 PUFF INHALATION (08:18)
[2022-04-17] MEDS: ATORVASTATIN 20 MG TABLET BY MOUTH (09:24)
[2022-04-17] MEDS: ASPIRIN 81 MG ENTERIC TABLET PO (09:24)
--- NOTE | 2022-04-17 09:31 | WPDCNINT ---
Assessment and Plan Assessment and plan (1) Chest pain: Code(s): R07.9 - Chest pain, unspecified Status: Acute Assessment and Plan: Patient presented with chest pain along with shortness of breath, STEMI was activated in the ER and patient was taken to the cardiac logging rafter laborer and did not show any occlusive coronary disease. EF 60-65%. -pain this morning, shortness of breath has improved -continue supplemental oxygen -cardiology following the patient -continue aspirin, atorvastatin -cardiology following the patient (2) Chronic respiratory failure with hypoxia: Code(s): J96.11 - Chronic respiratory failure with hypoxia Status: Acute Assessment and Plan: Patient has a history of chronic respiratory failure on 4 L oxygen at home, has had a history of hemochromatosis and asbestosis -continue supplemental oxygen -continue bronchodilators -continue montelukast (3) Obstructive sleep apnea on CPAP: Code(s): G47.33 - Obstructive sleep apnea (adult) (pediatric); Z99.89 - Dependence on other enabling machines and devices Status: Acute Assessment and Plan: Will place patient on CPAP with home settings (4) Pre-diabetes: Code(s): R73.03 - Prediabetes Status: Acute Assessment and Plan: Hemoglobin A1c is 5.8 Additional Plan Patient may be transferred out of the ICU if okay with Cardiology Code status: Full code Critical care time spent: 37 minutes This dictation may have been done utilizing a voice recognition system. Attempts have been made to correct errors. However, there may be uncorrected grammatical, spelling, and recognition errors present. Due to a high probability of clinically significant, life threatening deterioration, the patient required my highest level of preparedness to intervene emergently and I personally spent this critical care time directly and personally managing the patient. This critical care time included obtaining a history; examining the patient; pulse oximetry; ordering and review of studies; arranging urgent treatment with development of a management plan; evaluation of patient's response to treatment; frequent reassessment; and discussions with other providers. It was exclusive of separately billable procedures and treating other patients and teaching time. Please see Assessment and Plan section and the rest of the note for further information on patient assessment and treatment Optics Manufacturing Technician Consult Note Consult date: 04/17/22 Reason for consult: Chest pain, status post cardiac catheterization for STEMI called in the ER. Status post cardiac catheterization with no occlusive disease, false alarm activation ST-elevation IN HPI: Jarrell Stephens is a 86 year old male with past medical history of hyperlipidemia, prediabetes, no history of coronary artery disease, history of chronic respiratory failure on 4 L nasal cannula, chronic lung disease with history of tuberculosis and asbestosis, COPD/emphysema, sleep apnea presented the ED with chest pain and shortness of breath intermittently going on for the last several days, patient was experiencing more chest pain and air hunger on the day of admission that prompted him to come to the ED on 04/16/2022. In the ED EKG showed possible inferior myocardial injury with reciprocal depressions, patient was taken to cardiac logging rafter laborer, no occlusive disease was visualized, likely a false alarm activation of STEMI. EF was 60-65%. Patient was transferred to the ICU for further management Patient seen examined this morning, denies any chest pain, shortness in bed abdominal pain, nausea, vomiting. Hemodynamically stable, patient did wear the BiPAP overnight. O2 sats have been good on 4 L nasal cannula. Urine output has been adequate, no complaints or issues overnight Review of Systems Review of Systems: All systems reviewed & are unremarkable except as noted in HPI and below PMFSH Past Medical History Medical History
--- NOTE | 2022-04-17 17:08 | PC.NURSE ---
reported received from Arin [facility] ICU
--- NOTE | 2022-04-17 17:43 | PC.NURSE ---
Addendum entered by Bambi Funez RN 04/17/22 18:58: This patient, Jarrell Stephens, was transfered to 3 Med Surg Room 317-01 from ICU7. Patient/family oriented to hospital policies and general routines including ID bracelet, bed and alarms, visiting hours, pain management, procedures, bathroom and other care routines, personal items, smoking policy, room service/diet, and visiting hours. Information on how to activate the Rapid Response Team has been discussed. Patient/Family are encouraged to report perceived risks to care and to ask questions if they do not understand what they are told or what they should do. Report received by Arin at 1744 pt arrived Original Note: This patient, Jarrell Stephens, was admitted to 3 Med Surg Room 317-01. Patient/family oriented to hospital policies and general routines including ID bracelet, bed and alarms, visiting hours, pain management, procedures, bathroom and other care routines, personal items, smoking policy, room service/diet, and visiting hours. Information on how to activate the Rapid Response Team has been discussed. Patient/Family are encouraged to report perceived risks to care and to ask questions if they do not understand what they are told or what they should do. Arrived at 1744, by Arin [facility] ICU.
--- NOTE | 2022-04-17 17:44 | PC.NURSE ---
pt has RYAN bilateral with charge, upper and lower dentures, and glasses.
--- NOTE | 2022-04-17 17:50 | PC.NURSE ---
pt arrived now, called dietary for meal tray.
--- NOTE | 2022-04-17 17:50 | PC.NURSE ---
unable to reach dietary, informed ICU nurse Arin to bring tray to pt.
--- NOTE | 2022-04-17 18:19 | PC.NURSE ---
icu nurse brought pt food
[2022-04-17] MEDS: MONTELUKAST SODIUM 10 MG TABLET PO (20:37)
[2022-04-18 06:00] VITALS: BP 103/63; PULSE 79; RESP 20; TEMP 36.6; O2SAT 97
[2022-04-18 06:22] LABS: Free T4 Free Thyroxine Reflex 1.34 ng/dL (0.78-2.19)
[2022-04-18 06:44] LABS: Basophils Absolute Auto 0.1 K/mm3 (0.0-0.1); Basophils Percent Auto 0.8 % (0.2-1.2); Eosinophils Absolute Auto 0.1 K/mm3 (0-0.3); Eosinophils Percent Auto 1.8 % (0-4.4); Hematocrit 43.9 % (42.0-52.0); Hemoglobin 14.2 g/dL (14.0-18.0); Immature Granulocyte Absolute 0.05 K/mm3 (0.00-0.031); Immature Granulocyte Percent A 0.7 % (0-0.5); Lymphocytes Absolute Auto 0.98 K/mm3 (0.9-3.2); Lymphocytes Percent Auto 12.9 % (18.3-44.2); Mean Corpuscular HGB Conc 32.3 g/dl (32-36); Mean Corpuscular Hemoglobin 29.5 pg (26-34); Mean Corpuscular Volume 91.1 fl (80-100); Mean Platelet Volume 9.5 fl (7.4-10.4); Monocytes Absolute Auto 1.1 K/mm3 (0.1-0.6); Monocytes Percent Auto 14.4 % (2.6-8.5); Neutrophils Absolute Auto 5.3 K/mm3 (1.3-6.7); Neutrophils Percent Auto 69.4 % (45.5-73.1); Platelet Count Result 236 k/mm3 (150-375); Red Blood Count 4.82 M/mm3 (4.6-6.20); White Blood Count 7.6 K/mm3 (4.5-10.0)
[2022-04-18 06:53] LABS: Alanine Aminotransferase 17 U/L (6-50); Albumin Level 3.5 g/dL (3.5-5.1); Alkaline Phosphatase 83 U/L (38-126); Anion Gap 6 mmol/L (8-16); Aspartate Amino Transferase 25 U/L (17-59); Bilirubin,Total 0.6 mg/dL (0.2-1.3); Blood Urea Nitrogen 16 mg/dL (9-20); Calcium 8.2 mg/dL (8.4-10.2); Carbon Dioxide 26 mmol/L (22-30); Chloride 101 mmol/L (98-107); Estimated CRCL calculation 56 ml/min; Estimated Glomerular Filt Rate > 60; Glucose 100 mg/dL (65-110); Magnesium 2.2 mg/dL (1.6-2.3); Phosphorus 2.9 mg/dL (2.5-4.5); Potassium 3.9 mmol/L (3.4-5.0); Sodium 133 mmol/L (137-145)
[2022-04-18 07:08] LABS: Total Triiodothyronine (T3) 1.09 NG/ML (0.97-1.69)
[2022-04-18 08:00] VITALS: O2SAT 95
[2022-04-18] MEDS: FLUTICASONE/SALMETEROL 115-21 MCG INHALER 1 PUFF 2 PUFF INHALATION (09:03)
[2022-04-18 09:06] VITALS: O2SAT 92
[2022-04-18] MEDS: ATORVASTATIN 20 MG TABLET BY MOUTH (09:25)
[2022-04-18] MEDS: ASPIRIN 81 MG ENTERIC TABLET PO (09:26)
[2022-04-18] MEDS: PERFLUTREN LIPID MICROSPHERES 1.5 ML VIAL DILUTED TO 10 ML TOTAL VOLUME IV PUSH (10:00)
--- NOTE | 2022-04-18 13:43 | PM.IMPN ---
Progress Note: A&P Assessment and Plan (1) Chest pain: Code(s): R07.9 - Chest pain, unspecified Status: Acute Assessment and Plan: Patient presented with chest pain along with shortness of breath. STEMI was activated in the ED and patient was taken to the cardiac manager labor delivery. Heart cath did not show any occlusive coronary disease. EF 60-65%. CTA chest showing no PE but does show1.4cm LLL pulmonary nodule, possible mass in RLL. Still with BRENNAN but no further chest pain. Okay to discharge home from a medical stand point. Will follow from afar. Thank you so much for allowing me to be a part of this patient's care. (2) Chronic respiratory failure with hypoxia: Code(s): J96.11 - Chronic respiratory failure with hypoxia Status: Acute Assessment and Plan: Patient has a history of chronic respiratory failure on 4 L oxygen at home. He has a history of hemochromatosis and asbestosis. Stable. Continue current treatment plan (3) Obstructive sleep apnea on CPAP: Code(s): G47.33 - Obstructive sleep apnea (adult) (pediatric); Z99.89 - Dependence on other enabling machines and devices Status: Acute Assessment and Plan: Auto CPAP started here. Patient tolerating well. (4) Pre-diabetes: Code(s): R73.03 - Prediabetes Status: Acute Assessment and Plan: A1c is 5.8. Glucose normal. (5) Chronic obstructive pulmonary disease: Code(s): J44.9 - Chronic obstructive pulmonary disease, unspecified Status: Acute Assessment and Plan: Stable. No wheezing. Continue current medical regimen. (6) Chronic lung disease: Code(s): J98.4 - Other disorders of lung Status: Acute Assessment and Plan: As above (7) Lung mass: Code(s): R91.8 - Other nonspecific abnormal finding of lung field Status: Acute Assessment and Plan: CT Chest results noted as above. Patient is followed by Dr Arechiga for known lung masses and these have not changed significnatly over the past few years. Patient also states he has had 2 negative PET scans as well. Patient to follow up with Dr Arechiga at next scheduled visit. Subjective Date/time seen: 04/18/22 13:43 Interval history: Hospitalist was consulted on 86yo male with COPD, DM and chronic respiratory failure on 4L here for CP. STEMI called but heart cath did not show evidence of acute coronary syndrome. Assuming care. Chart reviewed. Patient feels well. Denies chest pain or shortness of breath but does have some dyspnea on exertion when he walks to the bathroom. No nausea or vomiting. No problems overnight. Exam Narrative: AF 98.0 103/63 79 20 92% 4L Gen - NARD lying semi-recumbent in bed Chest - few scattered rhonchi, nml RR CV - RRR S1/S2. Abd - Soft, NT/ND, Positive BS Ext - No pedal edema. 2+ DP pulses bilaterally Neuro - Alert and oriented. Nonfocal exam. Psych - Nml mood and affect Skin - Warm and dry Objective Data Vital Signs Vital Signs: Vital Signs - 24 hr 04/17/22 14:25 04/17/22 17:45 04/17/22 18:00 Temperature 97.9 F Pulse Rate 82 82 71 Respiratory Rate 32 H 20 26 H Blood Pressure 109/55 L 103/57 L Pulse Oximetry 96 96 88 L Oxygen Delivery Nasal Cannula Oxygen Flow Rate 4 04/17/22 18:12 04/17/22 20:55 04/17/22 21:05 Temperature Pulse Rate 76 75 Respiratory Rate 16 Blood Pressure Pulse Oximetry 95 95 96 Oxygen Delivery Nasal Cannula CPAP Oxygen Flow Rate 4 04/17/22 22:00 04/18/22 06:00 04/18/22 09:06 Temperature 98.2 F 98 F Pulse Rate 75 79 Respiratory Rate 18 20 Blood Pressure 97/57 L 103/63 Pulse Oximetry 96 97 92 Oxygen Delivery Nasal Cannula Oxygen Flow Rate 4 04/18/22 08:00 Temperature Pulse Rate Respiratory Rate Blood Pressure Pulse Oximetry 95 Oxygen Delivery Nasal Cannula Oxygen Flow Rate 4 Intake/Output Intake/Output: Intake & Output 04/15/22 04/16/22
[2022-04-18 14:00] VITALS: BP 104/53; PULSE 78; RESP 20; TEMP 36.2; O2SAT 96
[2022-04-18] MEDS: DOCUSATE SODIUM 100 MG CAPSULE PO (15:15)
--- NOTE | 2022-04-18 23:47 | ECHO_ITS ---
Patient Info Name: Jarrell Stephens Age: 86 years : 1935 Gender: Male Ht: 71 in Wt: 161 lbs BSA: 1.91 m2 HR: 79 bpm BP: 103 / 63 mmHg Heart Rhythm: Sinus Rhythm Technical Quality: Fair Exam Date: 04/18/2022 9:19 AM Exam Location: [facility] Patient Status: Inpatient Admit Date: 04/16/2022 Staff Ordering Physician: Mariana Brown PA-C Parts Cleaner: Alivia Mckeon RDCS Attending Provider: Brooklynn Shi DO Referring Physician: Stephanie VIVEROS; Exam Type: CA echo dop color flow w con Study Info Indications R01.1 - Cardiac murmur, unspecified R07.89 - Other chest pain Complete two-dimensional, color flow and Doppler transthoracic echocardiogram is performed with contrast to opacify the left ventricle and to improve the deliniation of the left ventricle endocardial borders. Contrast/Agitated Saline Contrast/Ag. Saline: Definity Amount: 3.00 ml Administered By: Ailvia Mckeon RDCS Existing IV Access: Yes IV Access Condition: patent with no signs of infiltration Summary 1. Definity contrast injected to improve visualization. 2. Mild LVH with normal systolic function and grade 1 diastolic noncompliance. 3. Mild aortic valve stenosis with valve area calculated at 1.8 cm squared. Left Ventricle Left ventricular chamber dimension is normal. Left ventricular systolic function is normal, estimated at 65-70%. There is mild concentric increased left ventricular wall thickness. The left ventricular diastolic function is grade I diastolic dysfunction. Right Ventricle Right ventricular chamber dimension is normal. Left Atria Left atrial chamber dimension is normal. Right Atria Right atrial chamber dimension is normal. Aortic Valve The aortic valve is trileaflet. There is moderate aortic valve sclerosis. There is mild aortic valve stenosis with a peak velocity of 275.13 cm/s, mean gradient of 17 mmHg, and aortic valve area of 1.07 cm2. There is no aortic valve regurgitation. Pulmonic Valve The pulmonic valve is not well visualized. Mitral Valve The mitral valve has normal leaflets. Tricuspid Valve The tricuspid valve leaflets are normal. Pericardium/Pleural The pericardium appears normal. Aorta The aortic root size at the sinus of Valsalva is normal. Left Ventricular Outflow Tract Name Value Normal LVOT 2D LVOT Diameter 2.09 cm LVOT Doppler LVOT Peak Gradient 4 mmHg LVOT Mean Gradient 2 mmHg LVOT VTI 15.64 cm LVOT VTI/AV VTI Ratio 0.31 LVOT Stroke Volume 53.44 ml LVOT CO 3.85 l/min LVOT CI 2.01 L/min/m2 Pulmonic Valve Name Value Normal RVOT Doppler
--- NOTE | 2022-05-23 10:32 | PM.DS ---
DS: Admitting Diagnosis Discharge Date 04/18/22 Admitting Diagnosis Chest pain/ST-elevation ID DS: Discharge Diagnosis Discharge Diagnosis (1) Chronic respiratory failure with hypoxia: Code(s): J96.11 - Chronic respiratory failure with hypoxia Status: Acute DS: Summary Hospital Course Reason for hospitalization: False alarm ST-elevation ID Hospital Course: This is an 86-year-old man with chronic lung disease and history of asbestosis who came to the emergency room with chest pain. He was declared by the ED staff to be having an acute ST-elevation ID in the inferior wall. I was summoned as the pulley mortiser operator on-call to perform an emergency angiogram. Upon arrival at the hospital I did not share the concern of the ER staff after looking at the patient and seeing the electrocardiogram. Emergency coronary angiography was performed as requested which demonstrated right coronary dominant circulation with no angiographic evidence of coronary artery disease. Left ventricular function was found to be normal by left ventriculogram. He was recovered following his emergency left heart catheterization procedure and had no cardiovascular problems following that. The hospitalist group saw the patient in consultation because of the symptoms and there were no other medical issues identified. He does have significant chronic lung disease and sees a license and permit specialist in [place]. He was advised upon discharge follow-up with his license and permit specialist for further evaluation of his lung disease if that is felt to be necessary. Since his catheterization was negative follow-up in my office is not being scheduled. Status at Discharge Functional status at discharge: independent ambulation Overall status at discharge: patient is progressing back to baseline Time Spent with Patient Time attestation: Total time spent providing and/or coordinating discharge services: Time spent: Less than 30 minutes Exam Const: General: comfortable and no acute distress Other: Elderly white male no distress HENMT: Mouth: Yes moist mucous membranes Eyes: Sclera: sclerae normal Pupils: Equal, round and reactive pupils present Neck: Neck: supple and no JVD Resp: Effort & Inspection: normal respiratory effort Auscultation: clear to auscultation bilaterally Cardio: Rate: regular rate Rhythm: regular rhythm Other: No murmur no gallop GI: GI Palp: Yes Soft to palpation Auscultation: normal bowel sounds Skin: General skin exam: normal color Neuro: Other: Alert and oriented x3 Extrem: General: normal to inspection Discharge Plan Discharge Consulting providers: Brooklynn Shi ; Lisa Johnson ; Mariana Brown ; Nicolas Nj ; Matt Hemphill ; Simon Dickson V. Discharging Clinician: Ranjith Emerson Patient Disposition: Home, Self-Care Activity: as tolerated Diet: heart healthy Discharge Instructions: Continue to use O2 at 4L Continue CPAP at night and with naps. Follow-up with your primary doctor in 1-2 weeks. Please call for appointment. Follow-up with Dr Arechiga at next scheduled appointment for your yearly CT chest scans. Thank you for using [facility] for your alxe care needs. Patient Instructions: Antibiotic Form, Heart Attack (GEN), Heart Failure (DC), Chest Pain (DC), Sleep Apnea (GEN), Heart Healthy Diet (DC), Acute Coronary Syndrome (DC), COPD (Chronic Obstructive Pulmonary Disease) (DC) Stand Alone Forms: General Discharge Information Follow-up/Referrals: Carlso Garcia MD [Primary Care Provider] - Discharge Medications: Continued fluticasone furoate-vilanterol [Breo Ellipta] 100-25 mcg/dose blister with device 1 inh inhalation DAILY montelukast 10 mg tablet 10 mg PO HS Spiriva with HandiHaler 18 mcg capsule, w/inhalation device 1 cap INHALATION DAILY atorvastatin 20 mg tablet See Rx Instructions .ROUTE .COMPLEX Qty: 90 3RF Dose Instruction: Take 1 t
== END 2022-04-18 17:45 | disposition home or self-care (01) | DRG 287 ==
LOC: ANHED 17:26 → ANHICU 18:31 → ANH3MEDSUR 04-18 17:13 → ANHICU 04-20 10:22
PROVIDERS: Internal Medicine; Physician Assistant; Admitting Provider Specialist; Emergency Provider Emergency Medicine; PCP Internal Medicine; Visit Provider Specialist
PROC: 4A023N7 Measurement of Cardiac Sampling and Pressure, Left Heart, Percutaneous Approach (ICD-10-PCS; CPT 93452; principal; 2022-04-16 17:00)
DX: R07.89 Other chest pain (principal); J96.11 Chronic respiratory failure with hypoxia; Z99.81 Dependence on supplemental oxygen; G47.33 Obstructive sleep apnea (adult) (pediatric); R73.03 Prediabetes; Z20.822 Contact with and (suspected) exposure to COVID-19; J44.9 Chronic obstructive pulmonary disease, unspecified; R91.8 Other nonspecific abnormal finding of lung field; E78.5 Hyperlipidemia, unspecified; I35.0 Nonrheumatic aortic (valve) stenosis; R91.1 Solitary pulmonary nodule; Z87.09 Personal history of other diseases of the respiratory system; Z86.11 Personal history of tuberculosis; Z87.891 Personal history of nicotine dependence; Z85.828 Personal history of other malignant neoplasm of skin; Z98.42 Cataract extraction status, left eye; Z98.41 Cataract extraction status, right eye
CPT/HCPCS: 36415; 71045; 71046; 71275; 80048; 80053; 82550; 83036; 83735; 84100; 84439; 84443; 84480; 84484; 85025; 85380; 85610; 85730; 93005; 93458; 94002; 94003; 94640; 96365; 96375; 99285; A9270; C1887; C1894; C8929; C9803; J0131; J0282; J1644; J2250; J3010; J7030; J7040; Q9957; Q9967; U0003; U0005

== ENCOUNTER 2022-07-15 07:31 | Outpatient (CLI) | payer MEDICARE, SELFPAY ==
[2022-07-15 08:12] LABS: Basophils Absolute Auto 0.1 K/mm3 (0.0-0.1); Basophils Percent Auto 0.9 % (0.2-1.2); Eosinophils Absolute Auto 0.2 K/mm3 (0-0.3); Eosinophils Percent Auto 3.4 % (0-4.4); Hematocrit 46.9 % (42.0-52.0); Hemoglobin 15.3 g/dL (14.0-18.0); Immature Granulocyte Absolute 0.03 K/mm3 (0.00-0.031); Immature Granulocyte Percent A 0.5 % (0-0.5); Lymphocytes Absolute Auto 1.37 K/mm3 (0.9-3.2); Lymphocytes Percent Auto 24.9 % (18.3-44.2); Mean Corpuscular HGB Conc 32.6 g/dl (32-36); Mean Platelet Volume 9.3 fl (7.4-10.4); Monocytes Absolute Auto 0.6 K/mm3 (0.1-0.6); Monocytes Percent Auto 11.4 % (2.6-8.5); Neutrophils Absolute Auto 3.2 K/mm3 (1.3-6.7); Neutrophils Percent Auto 58.9 % (45.5-73.1); Platelet Count Result 237 k/mm3 (150-375); Red Cell Distribution Width 13.2 % (11.5-14.5); White Blood Count 5.5 K/mm3 (4.5-10.0)
[2022-07-15 08:23] LABS: Hemoglobin A1C 6.1 % (<5.7)
[2022-07-15 08:30] LABS: Anion Gap 9 mmol/L (8-16); Blood Urea Nitrogen 16 mg/dL (9-20); Calcium 8.7 mg/dL (8.4-10.2); Carbon Dioxide 29 mmol/L (22-30); Chloride 101 mmol/L (98-107); Cholesterol 148 mg/dL (0-200); Estimated Glomerular Filt Rate > 60; Glucose 98 mg/dL (65-110); HDL Direct 41 mg/dL; Potassium 4.3 mmol/L (3.4-5.0); Sodium 139 mmol/L (137-145); Triglycerides 56 mg/dL (<150)
[2022-07-15 08:41] LABS: LDL Cholesterol Direct 77 mg/dL
[2022-07-15 09:31] LABS: Vitamin D 25 Hydroxy 54.9 ng/mL
== END 2022-07-15 07:32 | disposition home or self-care (01) ==
LOC: ANHLAB 07:33
PROVIDERS: PCP Internal Medicine; Visit Provider Internal Medicine
DX: E55.9 Vitamin D deficiency, unspecified (principal); E78.2 Mixed hyperlipidemia; R73.03 Prediabetes; Z79.899 Other long term (current) drug therapy
CPT/HCPCS: 36415; 80048; 80061; 82306; 83036; 85025

== ENCOUNTER 2022-07-21 00:33 | Day surgery (SDC) | payer MEDICARE, SELFPAY ==
[2022-07-14 11:25] VITALS: BMI 23.8
[2022-07-21 09:09] VITALS: BP 123/67; PULSE 85; RESP 20; TEMP 36.6; O2SAT 94
[2022-07-21] MEDS: LACTATED RINGERS 1,000 ML 150 ML IV CONT (09:12)
--- NOTE | 2022-07-21 09:38 | PM.HPGS ---
History of Present Illness History of Present Illness Consent: Risks, benefits, and alternatives have been discussed and questions answered. Patient agrees to proceed with procedure. Chief complaint: Hx of colon polyps Narrative: Jarrell Stephens is a 86 year old male Presents for screening colonoscopy. Patient has a history of adenomatous colon polyp removed from the colon 5 years ago. Patient presents today for follow-up exam. Patient's current weight appetite and bowel movements are normal. He denies abdominal pain. He has had no bleeding. Family history noncontributory. Review of Systems Review of Systems: Review of systems noncontributory. [facility] Past Medical History Medical History (Updated 07/21/22 @ 09:40 by Vladimir Mccormick MD) Asbestosis BMI 22.0-22.9, adult BMI 24.0-24.9, adult Chronic respiratory failure with hypoxia Constipation Costochondritis Former smoker Hearing loss Hyperlipidemia Lung nodule Obstructive sleep apnea on CPAP Pre-diabetes Squamous cell carcinoma of skin of left cheek Tuberculosis (1978) Surgical History Surgical History History of bilateral cataract extraction History of colonoscopy with polypectomy History of meniscectomy of right knee Status post surgical removal of malignant neoplasm of skin Family History Family History Mother Patient's mother is Social History Social History Social History: Surrogate medical decision maker: Code status: Full code. Smoking packs per day: 1.5 Smoking cigarettes per day: 30.0 Years smoked: 20 Smoking pack-years: 30.00 Smoking status: Former smoker Tobacco type: cigarettes Smoking end date: 09/11/79 Alcohol intake: never Substance use: never Substance use type: does not use Living arrangements: with family Spiritual care concerns: No Meds Home Medications and Allergies Home Medications Medication Instructions Recorded Confirmed Type montelukast 10 mg tablet 10 mg PO HS 07/26/19 07/21/22 History tiotropium bromide 18 mcg capsule 1 cap inhalation DAILY 07/26/19 07/21/22 History with inhalation device (Spiriva with HandiHaler) fluticasone furoate 100 1 inh inhalation DAILY 03/04/22 07/21/22 History mcg-vilanterol 25 mcg/dose inhalation powder (Breo Ellipta) MaxFe (folate) 400 mg PO DAILY 07/14/22 07/21/22 History atorvastatin 20 mg tablet 20 mg PO DAILY 07/14/22 07/21/22 History guaifenesin 400 mg tablet (Mucus 1,200 mg PO DAILY 07/14/22 07/21/22 History Relief) mecobalamin (vitamin B12) 1,000 1,000 mcg PO DAILY 07/14/22 07/21/22 History mcg chewable tablet Allergies Allergy/AdvReac Type Severity Reaction Status Date / Time No Known Allergies Allergy Verified 07/21/22 09:07 Vital Signs Vital Signs - 24 hr 07/21/22 09:09 Temperature 97.8 F Pulse Rate 85 Respiratory Rate 20 Blood Pressure 123/67 Pulse Oximetry 94 Oxygen Delivery Nasal Cannula Oxygen Flow Rate 4 Exam Narrative: Physical exam reveals patient to be alert. Vital signs stable. HEENT exam is unremarkable. Patient is anicteric. Lungs are clear to auscultation and percussion. Heart is without murmur or extra sounds. Abdomen bowel sounds present soft nontender with no organomegaly. Digital external rectal exam is normal. Assessment and Plan Assessment and plan (1) History of colon polyps: Code(s): Z86.010 - Personal history of colonic polyps Status: Acute Assessment and Plan: Patient has a history of colon polyps. Most recently 2017. Plan for surveillance colonoscopy now. Follow-up will depend on results of this test.
--- NOTE | 2022-07-21 09:49 | WPDANESEPPF ---
Anes - Initial Pre Proc Eval Procedure: Operation Date: 07/21/22 10:30 Proposed Procedures p Screening Colonoscopy - Vladimir Mccormick MD Date/Time: 07/21/22 09:49 Surgeon: Vladimir Mccormick MD Pre Op Diagnosis: Hx of colon polyps Patient Data Age: 86 Gender: M Height: 1.8 m Weight: 71.8 kg Last Vital Signs Temp 97.8 F 07/21/22 09:09 Pulse 85 07/21/22 09:09 Resp 20 07/21/22 09:09 BP 123/67 07/21/22 09:09 Pulse Ox 94 07/21/22 09:09 O2 Del Method Nasal Cannula 07/21/22 09:09 O2 Flow Rate 4 07/21/22 09:09 Allergies Allergy/AdvReac Type Severity Reaction Status Date / Time No Known Allergies Allergy Verified 07/21/22 09:07 Home Medications Medication Instructions Recorded Confirmed Type montelukast 10 mg tablet 10 mg PO HS 07/26/19 07/21/22 History tiotropium bromide 18 mcg capsule 1 cap inhalation DAILY 07/26/19 07/21/22 History with inhalation device (Spiriva with HandiHaler) fluticasone furoate 100 1 inh inhalation DAILY 03/04/22 07/21/22 History mcg-vilanterol 25 mcg/dose inhalation powder (Breo Ellipta) MaxFe (folate) 400 mg PO DAILY 07/14/22 07/21/22 History atorvastatin 20 mg tablet 20 mg PO DAILY 07/14/22 07/21/22 History guaifenesin 400 mg tablet (Mucus 1,200 mg PO DAILY 07/14/22 07/21/22 History Relief) mecobalamin (vitamin B12) 1,000 1,000 mcg PO DAILY 07/14/22 07/21/22 History mcg chewable tablet Patient hx anesthesia problems: none Family hx anesthesia problems: none Results Review: All pre-operative results and documents have been reviewed as part of the pre-operative evaluation. [facility] Past Medical History Medical History (Updated 07/21/22 @ 09:40 by Vladimir Mccormick MD) Asbestosis BMI 22.0-22.9, adult BMI 24.0-24.9, adult Chronic respiratory failure with hypoxia Constipation Costochondritis Former smoker Hearing loss Hyperlipidemia Lung nodule Obstructive sleep apnea on CPAP Pre-diabetes Squamous cell carcinoma of skin of left cheek Tuberculosis (1978) Surgical History Surgical History History of bilateral cataract extraction History of colonoscopy with polypectomy History of meniscectomy of right knee Status post surgical removal of malignant neoplasm of skin Family History Family History Mother Patient's mother is Social History Social History Social History: Surrogate medical decision maker: Code status: Full code. Smoking packs per day: 1.5 Smoking cigarettes per day: 30.0 Years smoked: 20 Smoking pack-years: 30.00 Smoking status: Former smoker Tobacco type: cigarettes Smoking end date: 09/11/79 Alcohol intake: never Substance use: never Substance use type: does not use Living arrangements: with family Spiritual care concerns: No Anes - Eval Final PreProcedure Day of Procedure 07/21/22 09:49 Patient weight: normal Heart: regular rate and rhythm Lungs: clear to auscultation Airway: Mallampati scale class II Neurological: alert and oriented Last oral intake: >/= 8 hours ASA classification: III Emergent: no Anesthetic plan: proceed Anesthesia type and monitoring: general GIVS and standard monitoring Results Review: All pre-operative results and documents have been reviewed as part of the pre-operative evaluation. Informed Consent: The patient's anesthetic plan and its attendant risks and benefits were discussed with the patient/family/POA. Questions were solicited and answers provided to the satisfaction of the patient/family/POA.
[2022-07-21 10:28] VITALS: BP 98/59; PULSE 70; RESP 17; O2SAT 98
[2022-07-21 10:38] VITALS: BP 94/53; PULSE 70; RESP 22; O2SAT 97
[2022-07-21 10:48] VITALS: BP 110/66; PULSE 70; RESP 19; O2SAT 100
== END 2022-07-21 11:11 | disposition home or self-care (01) ==
PROVIDERS: PCP Internal Medicine; Visit Provider Internal Medicine Gastroenterology
PROC: 0DJD8ZZ Inspection of Lower Intestinal Tract, Via Natural or Artificial Opening Endoscopic (ICD-10-PCS; CPT 45378; principal; 2022-07-21 10:30)
DX: Z12.11 Encounter for screening for malignant neoplasm of colon (principal); K64.8 Other hemorrhoids; Z86.010 Personal history of colon polyps; J96.11 Chronic respiratory failure with hypoxia; E78.5 Hyperlipidemia, unspecified; G47.33 Obstructive sleep apnea (adult) (pediatric); R73.03 Prediabetes; Z87.891 Personal history of nicotine dependence; Z79.51 Long term (current) use of inhaled steroids
CPT/HCPCS: G0105; J2704; J7120

== ENCOUNTER 2022-11-22 07:07 | Outpatient (CLI) | payer MEDICARE, SELFPAY ==
[2022-11-22 07:51] LABS: Basophils Absolute Auto 0.1 K/mm3 (0.0-0.1); Basophils Percent Auto 0.9 % (0.2-1.2); Eosinophils Absolute Auto 0.2 K/mm3 (0-0.3); Eosinophils Percent Auto 3.4 % (0-4.4); Hemoglobin 15.4 g/dL (14.0-18.0); Immature Granulocyte Absolute 0.02 K/mm3 (0.00-0.031); Immature Granulocyte Percent A 0.3 % (0-0.5); Lymphocytes Absolute Auto 1.08 K/mm3 (0.9-3.2); Lymphocytes Percent Auto 16.8 % (18.3-44.2); Mean Corpuscular HGB Conc 32.8 g/dl (32-36); Mean Corpuscular Volume 94.6 fl (80-100); Mean Platelet Volume 9.2 fl (7.4-10.4); Monocytes Absolute Auto 0.7 K/mm3 (0.1-0.6); Monocytes Percent Auto 11.4 % (2.6-8.5); Neutrophils Absolute Auto 4.3 K/mm3 (1.3-6.7); Neutrophils Percent Auto 67.2 % (45.5-73.1); Platelet Count Result 241 k/mm3 (150-375); Red Blood Count 4.97 M/mm3 (4.6-6.20); Red Cell Distribution Width 13.4 % (11.5-14.5); White Blood Count 6.4 K/mm3 (4.5-10.0)
[2022-11-22 08:05] LABS: Alanine Aminotransferase 19 U/L (6-50); Albumin Level 4.3 g/dL (3.5-5.1); Alkaline Phosphatase 85 U/L (38-126); Anion Gap 3 mmol/L (8-16); Aspartate Amino Transferase 22 U/L (17-59); Bilirubin,Total 0.7 mg/dL (0.2-1.3); Blood Urea Nitrogen 16 mg/dL (9-20); Calcium 8.8 mg/dL (8.4-10.2); Carbon Dioxide 32 mmol/L (22-30); Chloride 102 mmol/L (98-107); Cholesterol 169 mg/dL (0-200); Estimated Glomerular Filt Rate > 60; Glucose 101 mg/dL (65-110); HDL Direct 41 mg/dL; Potassium 4.4 mmol/L (3.4-5.0); Sodium 137 mmol/L (137-145); Triglycerides 97 mg/dL (<150)
[2022-11-22 08:09] LABS: Hemoglobin A1C 5.7 % (<5.7)
[2022-11-22 08:17] LABS: LDL Cholesterol Direct 97 mg/dL
== END 2022-11-22 07:08 | disposition home or self-care (01) ==
PROVIDERS: PCP Internal Medicine; Visit Provider Internal Medicine
DX: E78.2 Mixed hyperlipidemia (principal); R73.03 Prediabetes; Z79.899 Other long term (current) drug therapy
CPT/HCPCS: 36415; 80053; 80061; 83036; 85025

== ENCOUNTER 2023-02-01 08:16 | Outpatient (CLI) | payer MEDICARE, SELFPAY ==
--- NOTE | ~2023-02-01 | CT_ITS ---
EXAMINATION: CT diagnostic chest wo con DATE: 02/01/2023 09:04 INDICATION: Shortness of breath. COPD. TECHNIQUE: Computed tomography (CT) of the chest was performed without intravenous contrast. The dose -length product was 211.97 mGy-cm. Automated exposure control and iterative reconstruction technique were employed. COMPARISON: CT dated 04/17/2022 FINDINGS: Nonenlarged mediastinal lymph nodes, likely reactive. There is atherosclerosis of the aorta and coronary arteries. There is a new small right pneumothorax. There is severe emphysema. There is a small right pleural effusion. There is scattered areas of atelectasis bilaterally. There is an irre gular mass in the right upper lobe posteriorly with ill-defined margins measuring approximately 2.6 x 1.2 cm, without significant change allowing for differences of technique. There is stable nodular sc arring in the left upper lobe. There is a 1.4 x 1.3 cm pleural-based nodule left lower lobe with cent ral calcification, unchanged from prior study. There is a nonobstructing 3 mm right renal stone. Othe rwise, the upper abdomen is unremarkable. There is moderate thoracic spondylosis. No acute osseous ab normality. IMPRESSION: 1. New small right hydropneumothorax. 2: Stable parenchymal masses involving the right upper lobe measuring up to 2.6 cm and left lower lo be measuring 1.4 cm. These findings are suspicious for malignancy, although unchanged from prior stud y. Recommend correlation with pet/CT or CT-guided biopsy as clinically indicated. 3: Severe emphysema with chronic scarring of the left upper lobe. 4: Nonobstructing right nephrolithiasis. Dr. Vladimir Ba discussed with Dr. Carlos Garcia MD at 02/01/2023 09:23 CDT. Reviewed, dictated and finalized at location B. IMPRESSION: 1. New small right hydropneumothorax. 2: Stable parenchymal masses involving the right upper lobe measuring up to 2. 6 cm and left lower lobe measuring 1.4 cm. These findings are suspicious for ma lignancy, although unchanged from prior study. Recommend correlation with pet/C T or CT-guided biopsy as clinically indicated. 3: Severe emphysema with chronic scarring of the left upper lobe. 4: Nonobstructing right nephrolithiasis. Dr. Vladimir Ba discussed with Dr. Carlos Garcia MD at 02/01/2023 09:23 CDT.
--- NOTE | ~2023-02-01 | XR_ITS ---
EXAMINATION: XR chest 2V DATE: 02/01/2023 08:54 INDICATION: Shortness of breath. TECHNIQUE: PA and lateral views of the chest were obtained. COMPARISON: Chest radiograph dated 04/18/2022, 04/16/[address] dated 04/17/2022 FINDINGS: Severe emphysema with similar pattern of architectural distortion with scattered areas of increased l ucency and scattered areas with linear and reticular opacities consistent with chronic scarring. Calc ified nodule at the left apex consistent with old granulomatous disease. New very small right pleural effusion with blunting at the posterior sulcus and costophrenic angle. N o other new airspace opacities, pneumothorax or left pleural effusion. Heart size is normal. Visualiz ed bones and soft tissues are unremarkable. IMPRESSION: 1. New very small right pleural effusion. 2. Otherwise unchanged severe emphysema with atelectasis/scarring scattered throughout both lungs. Reviewed, dictated and finalized at location A. IMPRESSION: 1. New very small right pleural effusion. 2. Otherwise unchanged severe emphysema with atelectasis/scarring scattered thr oughout both lungs.
[2023-02-01 08:51] LABS: Basophils Absolute Auto 0.1 K/mm3 (0.0-0.1); Basophils Percent Auto 0.7 % (0.2-1.2); Eosinophils Absolute Auto 0.2 K/mm3 (0-0.3); Eosinophils Percent Auto 3.4 % (0-4.4); Hematocrit 46.7 % (42.0-52.0); Hemoglobin 15.3 g/dL (14.0-18.0); Immature Granulocyte Absolute 0.02 K/mm3 (0.00-0.031); Immature Granulocyte Percent A 0.3 % (0-0.5); Lymphocytes Absolute Auto 1.12 K/mm3 (0.9-3.2); Lymphocytes Percent Auto 15.8 % (18.3-44.2); Mean Corpuscular HGB Conc 32.8 g/dl (32-36); Mean Corpuscular Hemoglobin 30.8 pg (26-34); Mean Platelet Volume 9.2 fl (7.4-10.4); Monocytes Absolute Auto 0.7 K/mm3 (0.1-0.6); Monocytes Percent Auto 10.2 % (2.6-8.5); Neutrophils Absolute Auto 4.9 K/mm3 (1.3-6.7); Neutrophils Percent Auto 69.6 % (45.5-73.1); Platelet Count Result 231 k/mm3 (150-375); Red Blood Count 4.97 M/mm3 (4.6-6.20); Red Cell Distribution Width 13.3 % (11.5-14.5); White Blood Count 7.1 K/mm3 (4.5-10.0)
== END 2023-02-01 08:17 | disposition home or self-care (01) ==
PROVIDERS: PCP Internal Medicine; Visit Provider Internal Medicine
DX: R06.02 Shortness of breath (principal); J98.4 Other disorders of lung; J94.2 Hemothorax; N20.0 Calculus of kidney; R91.8 Other nonspecific abnormal finding of lung field; J90 Pleural effusion, not elsewhere classified; J43.9 Emphysema, unspecified
CPT/HCPCS: 36415; 71046; 71250; 85025

== ENCOUNTER 2023-02-01 09:37 | Emergency (ER) | payer MEDICARE, SELFPAY ==
[2023-02-01] VITALS (61 sets, daily range): BP systolic 108–131; BP diastolic 62–72; PULSE 74–93; RESP 12–40; TEMP 36.5; O2SAT 90–97
--- NOTE | ~2023-02-01 | XR_ITS ---
XR chest 1V portable 02/01/2023 16:26 Indication: Right pneumothorax. Shortness of breath. Procedure: AP portable chest Comparison: 02/01/2023 Findings: Tiny right pneumothorax. There are linear opacities of the mid and lower lungs. No signific ant effusion. The lungs are hyperinflated which is consistent with, but not diagnostic of chronic obs tructive pulmonary disease. No acute osseous abnormality. Impression: 1: Tiny right pneumothorax. 2: Linear infiltrates of the mid and lower lungs which may represent mild edema or atelectasis. Reviewed, dictated and finalized at location B. Impression: 1: Tiny right pneumothorax. 2: Linear infiltrates of the mid and lower lungs which may represent mild chris a or atelectasis.
--- NOTE | 2023-02-01 09:45 | ECG_ITS ---
Measurements Intervals [place] Rate: 85 P: 79 [place]: 155 QRS: 30 QRSD: 101 T: 60 QT: 349 QTc: 416 Interpretive Statements SINUS RHYTHM NORMAL ECG COMPARED TO ECG 04/16/2022 16:25:34 NO SIGNIFICANT CHANGES Electronically Signed On 02-01-2023 9:53:40 CDT by Alex Myers D.O.
--- NOTE | 2023-02-01 09:52 | ED.GENADULT ---
HPI - General Adult General Chief complaint: Shortness of Breath/Dyspnea Stated complaint: resp distress Time Seen by Provider: 02/01/23 09:43 History of Present Illness HPI narrative: 87-year-old male presented the emergency department for evaluation of increased exertional shortness of breath. Patient is currently being treated by [facility]/ Dr Raza for lung cancer and has received multiple radiation therapy treatments. Patient was having increased exertional shortness of breath over the last few days and did have follow-up with his primary care physician. Outpatient CT scan was ordered of the chest that did show a small hydropneumothorax on the right side. Patient is normally on 2 to 5 L of oxygen by nasal cannula. Upon arrival to the ED patient is saturating well on 3 L. Patient's primary care physician sent the patient to our ED for further work-up. Related Data Home Medications Medication Instructions Recorded Confirmed montelukast 10 mg tablet 10 mg PO HS 07/26/19 02/01/23 tiotropium bromide 18 mcg capsule 1 cap inhalation DAILY 07/26/19 02/01/23 with inhalation device (Spiriva with HandiHaler) fluticasone furoate 100 1 inh inhalation DAILY 03/04/22 02/01/23 mcg-vilanterol 25 mcg/dose inhalation powder (Breo Ellipta) MaxFe (folate) 400 mg PO DAILY 07/14/22 02/01/23 guaifenesin 400 mg tablet (Mucus 1,200 mg PO DAILY 07/14/22 02/01/23 Relief) mecobalamin (vitamin B12) 1,000 1,000 mcg PO DAILY 07/14/22 02/01/23 mcg chewable tablet Allergies Allergy/AdvReac Type Severity Reaction Status Date / Time No Known Allergies Allergy Verified 07/25/22 09:46 Review of Systems Review of Systems: All systems reviewed & are unremarkable except as noted in HPI and below PMFSH Past Medical History Medical History (Reviewed 02/01/23 @ 07:54 by Zita Monreal, [facility]) Asbestosis BMI 22.0-22.9, adult BMI 24.0-24.9, adult Chronic respiratory failure with hypoxia Constipation Costochondritis Former smoker Hearing loss Hyperlipidemia Lung nodule Obstructive sleep apnea on CPAP Pre-diabetes Squamous cell carcinoma of skin of left cheek Tuberculosis (1978) Surgical History Surgical History (Reviewed 02/01/23 @ 07:54 by Zita Monreal [facility]) History of bilateral cataract extraction History of colonoscopy with polypectomy History of meniscectomy of right knee Status post surgical removal of malignant neoplasm of skin Family History Family History (Reviewed 02/01/23 @ 07:54 by Zita Monreal [facility]) Mother Patient's mother is Social History Social History (Reviewed 02/01/23 @ 07:54 by Zita Monreal [facility]) Social History: Surrogate medical decision maker: Code status: Full code. Smoking packs per day: 1.5 Smoking cigarettes per day: 30.0 Years smoked: 20 Smoking pack-years: 30.00 Smoking status: Former smoker Tobacco type: cigarettes Smoking end date: 09/11/79 Alcohol intake: never Substance use: never Substance use type: does not use Lack of Transportation: No Lack of Food: Never True Current Housing: I Have Housing Concerned About Future Housing: No Difficulty Paying Gas/Electric Bills: No Difficulty Paying for Meds: No Currently Unemployed: No Education: High School Diploma/GED Difficulty w/ Childcare or Family Care: No Living arrangements: with family Occupation/Education: retired Gender identity (if verbalized by the patient): Male Spiritual care concerns: No Exam Narrative: APPEARANCE: Well appearing, no pain, no distress, well-nourished. HEAD: normocephalic, atraumatic. EYES: PERRLA/EOMI, conjunctivae clear. NOSE: Normal no drainage EARS:TMS clear with good light reflex. THROAT: Pharynx clear, no exudate. NECK: Supple. No adenopathy, no masses. RESPIRATORY: Airway patent, respirations nonlabored. Clear to auscultation bilaterally, no rales, rhonchi, wheezing. CARDIOVASCULAR: Regular rate and rhythm witho
[2023-02-01] MEDS: LEVALBUTEROL NEB 1.25 MG/3 ML INHALATION (10:04)
[2023-02-01 10:07] LABS: Basophils Percent Auto 0.5 % (0.2-1.2); Eosinophils Absolute Auto 0.2 K/mm3 (0-0.3); Eosinophils Percent Auto 2.3 % (0-4.4); Hematocrit 46.8 % (42.0-52.0); Hemoglobin 15.6 g/dL (14.0-18.0); Immature Granulocyte Absolute 0.02 K/mm3 (0.00-0.031); Immature Granulocyte Percent A 0.3 % (0-0.5); Lymphocytes Absolute Auto 1.03 K/mm3 (0.9-3.2); Mean Corpuscular HGB Conc 33.3 g/dl (32-36); Mean Corpuscular Hemoglobin 30.9 pg (26-34); Mean Corpuscular Volume 92.7 fl (80-100); Mean Platelet Volume 9.4 fl (7.4-10.4); Monocytes Absolute Auto 0.8 K/mm3 (0.1-0.6); Monocytes Percent Auto 10.4 % (2.6-8.5); Neutrophils Absolute Auto 5.3 K/mm3 (1.3-6.7); Neutrophils Percent Auto 72.5 % (45.5-73.1); Platelet Count Result 235 k/mm3 (150-375); Red Blood Count 5.05 M/mm3 (4.6-6.20); Red Cell Distribution Width 13.4 % (11.5-14.5); White Blood Count 7.4 K/mm3 (4.5-10.0)
[2023-02-01 10:18] LABS: Alanine Aminotransferase 22 U/L (6-50); Albumin Level 4.5 g/dL (3.5-5.1); Alkaline Phosphatase 96 U/L (38-126); Anion Gap 7 mmol/L (8-16); Aspartate Amino Transferase 26 U/L (17-59); Bilirubin,Total 0.8 mg/dL (0.2-1.3); Blood Urea Nitrogen 20 mg/dL (9-20); Calcium 8.6 mg/dL (8.4-10.2); Carbon Dioxide 27 mmol/L (22-30); Chloride 105 mmol/L (98-107); Estimated CRCL calculation 70 ml/min; Estimated Glomerular Filt Rate > 60; Glucose 89 mg/dL (65-110); Potassium 4.1 mmol/L (3.4-5.0); Sodium 139 mmol/L (137-145)
[2023-02-02 00:16] VITALS: BP 118/58; PULSE 88; RESP 26; O2SAT 95
== END 2023-02-02 00:17 | disposition short-term general hospital (02) ==
PROVIDERS: Emergency Provider Emergency Medicine; PCP Internal Medicine
DX: J94.8 Other specified pleural conditions (principal); C34.90 Malignant neoplasm of unspecified part of unspecified bronchus or lung; J61 Pneumoconiosis due to asbestos and other mineral fibers; J96.11 Chronic respiratory failure with hypoxia; E78.5 Hyperlipidemia, unspecified; G47.33 Obstructive sleep apnea (adult) (pediatric); R73.03 Prediabetes; Z99.81 Dependence on supplemental oxygen; Z85.828 Personal history of other malignant neoplasm of skin; Z87.891 Personal history of nicotine dependence; Z98.42 Cataract extraction status, left eye; Z98.41 Cataract extraction status, right eye
CPT/HCPCS: 36415; 71045; 71046; 71250; 80053; 85025; 93005; 94640; 99285

== ENCOUNTER 2023-04-24 07:00 | Outpatient (CLI) | payer MEDICARE, SELFPAY ==
[2023-04-24 07:54] LABS: Alanine Aminotransferase 18 U/L (6-50); Albumin Level 4.2 g/dL (3.5-5.1); Alkaline Phosphatase 68 U/L (38-126); Anion Gap 6 mmol/L (8-16); Aspartate Amino Transferase 27 U/L (17-59); Bilirubin,Total 0.8 mg/dL (0.2-1.3); Blood Urea Nitrogen 17 mg/dL (9-20); Calcium 8.5 mg/dL (8.4-10.2); Carbon Dioxide 26 mmol/L (22-30); Chloride 101 mmol/L (98-107); Cholesterol 146 mg/dL (0-200); Estimated Glomerular Filt Rate > 60; Glucose 93 mg/dL (65-110); HDL Direct 41 mg/dL; Potassium 4.2 mmol/L (3.4-5.0); Sodium 133 mmol/L (137-145); Triglycerides 65 mg/dL (<150)
[2023-04-24 08:02] LABS: LDL Cholesterol Direct 87 mg/dL
[2023-04-24 09:13] LABS: Free T4 Free Thyroxine 1.18 ng/mL (0.78-2.19)
== END 2023-04-24 07:01 | disposition home or self-care (01) ==
PROVIDERS: PCP Internal Medicine; Visit Provider Internal Medicine
DX: Z51.81 Encounter for therapeutic drug level monitoring (principal); Z79.899 Other long term (current) drug therapy; Z13.29 Encounter for screening for other suspected endocrine disorder; R73.03 Prediabetes; E78.2 Mixed hyperlipidemia
CPT/HCPCS: 36415; 80053; 80061; 83036; 84439; 84443

== ENCOUNTER 2023-06-08 07:00 | Outpatient (NON) | payer MEDICARE, SELFPAY | END 2023-06-08 07:01 | disposition home or self-care (01) | LOC: ANHLAB 06-09 11:05 | PROVIDERS: PCP Internal Medicine; Visit Provider Nurse Practitioner | DX: C44.712 Basal cell carcinoma of skin of right lower limb, including hip (principal) | CPT/HCPCS: 88305 ==

== ENCOUNTER 2023-06-13 08:58 | Outpatient (CLI) | payer MEDICARE, SELFPAY ==
--- NOTE | 2023-06-13 11:30 | NEURO_ITS ---
Impression: # Non-diabetic complains of numbness of hands, right more than left. # No Carpal Tunnel Syndrome. # Bilateral ulnar neuropathy across the elbows, right more than left. # Abnormal needle/EMG exam with neurogenic changes in 1st DI and ADM. Nerve Conduction Studies Anti Sensory Summary Table Stim Site NR Peak (ms) P-T Amp (?V) Site1 Site2 Delta-P (ms) Dist (cm) Alvaro (m/s) Left Median Anti Sensory (2-3nd Digit) Wrist 3.7 22.2 Wrist 2-3nd Digit 3.7 14.0 38 Wrist 3.9 24.1 Wrist 2-3nd Digit 3.7 14.0 38 Right Median Anti Sensory (2-3nd Digit) Wrist 3.8 15.5 Wrist 2-3nd Digit 3.8 14.0 37 Wrist 3.9 13.0 Wrist 2-3nd Digit 3.8 14.0 37 Left Radial Anti Sensory (Base 1st Digit) Wrist 2.0 28.6 Wrist Base 1st Digit 2.0 0.0 Right Radial Anti Sensory (Base 1st Digit) Wrist 2.6 12.2 Wrist Base 1st Digit 2.6 0.0 Left Ulnar Anti Sensory (5th Digit) NO RESPONSE Wrist NR Wrist 5th Digit 14.0 Right Ulnar Anti Sensory (5th Digit) NO RESPONSE Wrist NR Wrist 5th Digit 14.0 Motor Summary Table Stim Site NR Onset (ms) O-P Amp (mV) Site1 Site2 Delta-0 (ms) Dist (cm) Alvaro (m/s) Left Median Motor (Abd Poll Brev) Wrist 4.1 1.6 Elbow Wrist 5.7 31.0 54 Elbow 9.8 3.0 Right Median Motor (Abd Poll Brev) Wrist 4.3 3.3 Elbow Wrist 5.3 30.0 57 Elbow 9.6 2.6 Left Ulnar Motor (Abd Dig Minimi) Wrist 3.0 5.0 A Elbow Wrist 6.1 31.0 51 A Elbow 9.1 2.7 B Elbow Wrist 3.8 21.0 55 B Elbow 6.8 2.7 Right Ulnar Motor (Abd Dig Minimi) Wrist 3.7 3.6 A Elbow Wrist 6.5 32.0 49 A Elbow 10.2 3.0 B Elbow Wrist 5.7 22.0 39 B Elbow 9.4 2.8 F Wave Studies NR F-Lat (ms) L-R F-Lat (ms) Left Median (Mrkrs) (Abd Poll Brev) 30.38 0.54 Right Median (Mrkrs) (Abd Poll Brev) 30.92 0.54 Left Ulnar (Mrkrs) (Abd Dig Min) 31.38 1.02 Right Ulnar (Mrkrs) (Abd Dig Min) 32.40 1.02 EMG Side Muscle Nerve Root Ins Act Fibs Amp Dur Recrt Comment Right 1stDorInt Ulnar C8-T1 Nml Nml Incr >12ms Reduced Right Ext Indicis Radial (Post Int) C7-8 Nml Nml Nml Nml Nml Right Ext Digitorum Radial (Post Int) C7-8 Nml Nml Nml Nml Nml Right BrachioRad Radial C5-6 Nml Nml Nml Nml Nml Right PronatorTeres Median C6-7 Nml Nml Nml Nml Nml Right Abd Poll Brev Median C8-T1 Nml Nml Nml Nml Nml Left 1stDorInt Ulnar C8-T1 Nml Nml Incr >12ms Reduced Left Ext Indicis Radial (Post Int) C7-8 Nml Nml Nml Nml Nml Left Ext Digitorum Radial (Post Int) C7-8 Nml Nml Nml Nml Nml Left BrachioRad Radial C5-6 Nml Nml Nml Nml Nml Left PronatorTeres Median C6-7 Nml Nml Nml Nml Nml Left Abd Poll Brev Median C8-T1 Nml Nml Nml Nml Nml Right ABD Dig Min Ulnar C8-T1 Nml Nml Incr >12ms Reduced Left ABD Dig Min Ulnar C8-T1 Nml Nml Incr >12ms Reduced MTDD
== END 2023-06-13 08:59 | disposition home or self-care (01) ==
PROVIDERS: PCP Internal Medicine; Visit Provider Internal Medicine
DX: R20.0 Anesthesia of skin (principal); G56.23 Lesion of ulnar nerve, bilateral upper limbs
CPT/HCPCS: 95886; 95911

== ENCOUNTER 2023-07-24 12:54 | Outpatient (NON) | payer MEDICARE, SELFPAY | END 2023-07-24 12:55 | disposition home or self-care (01) | LOC: ANHLAB 12:54 | PROVIDERS: PCP Internal Medicine; Visit Provider Nurse Practitioner | DX: C44.712 Basal cell carcinoma of skin of right lower limb, including hip (principal) | CPT/HCPCS: 88305; 88331 ==

== ENCOUNTER 2023-08-11 03:01 | Day surgery (SDC) | payer MEDICARE, SELFPAY ==
[2023-08-02 13:34] VITALS: BMI 22.4
--- NOTE | 2023-08-02 13:46 | PC.NURSE ---
Report to the Outpatient Waiting Room, entrance under the green pavilion located off [facility], at time ___1015____ on date _08/11/23 . Planned Procedure Time: _1215 . Time changes happen often and if your time is changed the preop area will call you the afternoon before. - You and your visitor will be asked to self-screen and do not enter if you have any COVID symptoms. - A mask is optional within the hospital at this time. - No food/drink from midnight until time of surgery Take the following medications with a SIP of water the morning of surgery: _TRELEGY INHALER, & ALBUTEROL INHALER IF NEEDED_ DO NOT STOP ANY OF YOUR OTHER PRESCRIPTION MEDICATIONS PRIOR TO SURGERY ?EXCEPT THE FOLLOWING Medications to discontinue per physician ____N/A Date to take last dose Please no make-up, nail lithuanian, hairspray, perfume, deodorant, or body powder the day of surgery. No jewelry (including any body piercings) or valuables the day of surgery, leave them at home. Please take a shower or bath the night before, or the morning of, surgery with an antibacterial soap. Wear comfortable, loose fitting clothing. Children are encouraged to wear pajamas. - Jewelry must be removed prior to entering the operating room. Rings and piercings that are not removed may be cut off. - The hospital will not accept responsibility for valuables. - Please leave all valuables, including medications, at home the day of surgery. If you are going home after surgery, a licensed transportation driver must drive you home. - NO public transportation without another adult if you receive anesthesia. - We recommend that an adult stay with you for 24 hours following discharge. - We also recommend that you do not drive, make important decision, drink alcoholic beverages, or take any drugs that were not prescribed by your health care provider for at least 24 hours after your discharge time. For Pediatric surgeries, we recommend two adults accompany the child home. Follow any additional instructions given to you from your surgeon. If you or anyone in your household have experienced Covid symptoms in the past week, please notify your surgeon or the nurse liaison at the phone number below for possible testing. Telephone instructions given to ____PT and asked if any additional questions and then verbalized understanding. Patient advised to call surgeon office or pre surgery nurse liaison [phone] if any additional questions.
--- NOTE | 2023-08-11 06:56 | PM.HPGS ---
History of Present Illness History of Present Illness Consent: Patient seen and examined in pre-operative holding area. No interval change in medical history or symptoms. Patient recalls previous discussion of benefits and alternatives to procedure. Continues to desire to proceed with left ectr poss open and left cubital tunnel release. Reviewed procedure, post-op expectations and risks including but not limited to bleeding, infection, injury to tendon/nerve/vessel, decreased hand function, stiffness, RSD, no change or worsening of symptoms. I discussed the possible use of assistants and their participation in the case. Patient stated understanding and signed the consent form wishing to proceed. Chief complaint: left carpal tunnel synd, left ulnar neuropathy Narrative: Jarrell Stephens is a 87 year old male desiring to proceed with surgery as above Review of Systems Review of Systems: All systems reviewed & are unremarkable except as noted in HPI and below PMFSH Past Medical History Medical History (Updated 06/21/23 @ 14:20 by Peewee So MD) Asbestosis BMI 22.0-22.9, adult BMI 24.0-24.9, adult BMI 25.0-25.9,adult Chronic respiratory failure with hypoxia Constipation Costochondritis Former smoker Hearing loss Hyperlipidemia Lung nodule Pre-diabetes Skin neoplasm Squamous cell carcinoma of skin of left cheek Tuberculosis (1978) Vaccine for tetanus toxoid Weakness of upper extremity Surgical History Surgical History History of bilateral cataract extraction History of colonoscopy with polypectomy History of meniscectomy of right knee Status post surgical removal of malignant neoplasm of skin Family History Family History Mother Patient's mother is Social History Social History Social History: Surrogate medical decision maker: Code status: Full code. Smoking packs per day: 1.5 Smoking cigarettes per day: 30.0 Years smoked: 20 Smoking pack-years: 30.00 Smoking status: Former smoker Tobacco type: cigarettes Second hand tobacco smoke exposure: No Smoking end date: 09/11/79 Alcohol intake: never Substance use: never Substance use type: does not use Lack of Transportation: No Lack of Food: Never True Current Housing: I Have Housing Concerned About Future Housing: No Difficulty Paying Gas/Electric Bills: No Difficulty Paying for Meds: No Currently Unemployed: No Education: High School Diploma/GED Difficulty w/ Childcare or Family Care: No Living arrangements: with family Occupation/Education: retired Gender identity (if verbalized by the patient): Male Spiritual care concerns: No Meds Home Medications and Allergies Home Medications Medication Instructions Recorded Confirmed Type montelukast 10 mg tablet 10 mg PO HS 07/26/19 08/02/23 History MaxFe (folate) 400 mg PO DAILY 07/14/22 08/02/23 History guaifenesin 400 mg tablet (Mucus 1,200 mg PO DAILY PRN Congestion 07/14/22 08/02/23 History Relief) mecobalamin (vitamin B12) 1,000 1,000 mcg PO DAILY 07/14/22 08/02/23 History mcg chewable tablet Home Nebulizer Machine and supplies #1 ea 02/01/23 08/02/23 Rx atorvastatin 20 mg tablet See Rx Instructions .Route 05/03/23 08/02/23 Rx .COMPLEX #90 tabs fluticasone fur. 200 mcg-umeclid See Rx Instructions .Route 07/10/23 08/02/23 Rx 62.5 mcg-vilant 25 mcg .COMPLEX #60 ea inhalat.powder (Trelegy Ellipta) albuterol sulfate 2.5 mg/3 mL 2.5 mg inhalation Q6H PRN Wheezing 08/02/23 08/02/23 History (0.083 %) solution for nebulization Allergies Allergy/AdvReac Type Severity Reaction Status Date / Time No Known Allergies Allergy Verified 08/02/23 13:32 Exam Narrative: unchanged from previous note Assessment and Plan Assessment and plan
--- NOTE | 2023-08-11 06:58 | W.PM.PROC2 ---
Procedure Note - Detailed Date of Procedure 08/11/23 Pre-op Diagnosis left carpal tunnel and left cubital tunnel syndrome Post-op Diagnosis Same Procedure Performed left ectr and cubital tunnel release Surgeon Peewee So MD Anesthesia MAC Description of Procedure ENDOSCOPIC CARPAL TUNNEL RELEASE INFORMED CONSENT: The patient was seen and examined and marked in the pre-op area.? The patient signed the consent form. PROCEDURE IN DETAIL:The patient taken back to OR on the stretcher in supine position. Time out performed with anesthesia, surgeon and staff agreeing on patient's name site and surgery to be performed SCDs were placed on the lower extremities and inflated. A tourniquet was placed on {left} upper extremity and antibiotics given IV After anesthesia administered sedation I injected {10}cc 1%lido with epi and 0.5% marcaine plain at the operative sites The?{left upper extremity}?was prepped and draped in sterile fashion the??{left upper extremity} was? exsanguinated with Esmarch bandage and tourniquet inflated to 250mmHg I made a transverse incision in the {left} volar distal wrist crease through skin and dermis with 15 blade scalpel.? Littler scissors spread down to antebrachial fascia. A small incision was made in antebrachial fascia allowing access to Carpal tunnel. I proceeded with sequential dilation staying in line with the ring finger and hugging the hook of the hamate.? I then used the synovial elevator to free any adhesions from the underside of the transverse carpal ligament. Next I was able to insert the Microaire endoscopic carpal tunnel device with direct visualization of the transverse fibers on the monitor and proceeded with complete segmental retrograde release of the ligament in its entirety.? I irrigated with normal saline and closed with 4-0 monocryl for dermis and subcuticular closure. I next proceeded with making a longitudinal incision between two heads for flexor carpi ulnaris at end of {left} cubital tunnel with 15 blade scalpel.? Littler scissors were used to spread down to FCU fascia.? An incision was made in FCU fascia and ulnar nerve identified exiting cubital tunnel.? I proceeded with complete retrograde release of the cubital tunnel including 7cm proximal for the intermuscular septum.? The nerve appeared healthy with visible vaso nervorum.? There was no subluxation on full elbow range of motion. ? I irrigated with normal saline and closure with 4-0 monocryl for dermis and subcuticular. A dressing of Dermabond, 4x4, oxana, and a volar wrist and posterior elbow splint was applied for patient safety, security, and comfort and secured with an chioma bandage after the tourniquet was let down noting the hand was warm and well perfused. The patient was then awaken from anesthesia and transferred to the recovery room in stable condition.? Complications - none EBL- 0cc Disposition - home in stable conditions G Billing Surgery - Charge Forward: Surgery Billing ([id number], [id number] and [id number])
[2023-08-11 10:10] VITALS: BP 133/63; PULSE 78; RESP 18; TEMP 36.6; O2SAT 99
[2023-08-11] MEDS: LACTATED RINGERS 1,000 ML 30 ML IV CONT (10:10)
--- NOTE | 2023-08-11 10:15 | WPDANESEPPF ---
Anes - Initial Pre Proc Eval Procedure: Operation Date: 08/11/23 12:15 Proposed Procedures p Left Endoscopic Carpal Tunnel Release, Possible Open, Left Cubital Tunnel Release - Peewee So MD Date/Time: 08/11/23 10:15 Surgeon: Peewee So MD Pre Op Diagnosis: left carpal tunnel synd, left ulnar neuropathy Patient Data Age: 87 Gender: M Height: 1.82 m Weight: 75.5 kg Allergies Allergy/AdvReac Type Severity Reaction Status Date / Time No Known Allergies Allergy Verified 08/02/23 13:32 Home Medications Medication Instructions Recorded Confirmed Type montelukast 10 mg tablet 10 mg PO HS 07/26/19 08/02/23 History MaxFe (folate) 400 mg PO DAILY 07/14/22 08/02/23 History guaifenesin 400 mg tablet (Mucus 1,200 mg PO DAILY PRN Congestion 07/14/22 08/02/23 History Relief) mecobalamin (vitamin B12) 1,000 1,000 mcg PO DAILY 07/14/22 08/02/23 History mcg chewable tablet Home Nebulizer Machine and supplies #1 ea 02/01/23 08/02/23 Rx atorvastatin 20 mg tablet See Rx Instructions .Route 05/03/23 08/02/23 Rx .COMPLEX #90 tabs fluticasone fur. 200 mcg-umeclid See Rx Instructions .Route 07/10/23 08/02/23 Rx 62.5 mcg-vilant 25 mcg .COMPLEX #60 ea inhalat.powder (Trelegy Ellipta) albuterol sulfate 2.5 mg/3 mL 2.5 mg inhalation Q6H PRN Wheezing 08/02/23 08/02/23 History (0.083 %) solution for nebulization acetaminophen 300 mg-codeine 30 mg 1 tablet PO Q6H PRN pain #14 tabs 08/11/23 Rx tablet Patient hx anesthesia problems: none Family hx anesthesia problems: none Results Review: All pre-operative results and documents have been reviewed as part of the pre-operative evaluation. FORMERLY [facility], [facility] Past Medical History Medical History Asbestosis BMI 22.0-22.9, adult BMI 24.0-24.9, adult BMI 25.0-25.9,adult Chronic respiratory failure with hypoxia Constipation Costochondritis Former smoker Hearing loss Hyperlipidemia Lung nodule Pre-diabetes Skin neoplasm Squamous cell carcinoma of skin of left cheek Tuberculosis (1978) Vaccine for tetanus toxoid Weakness of upper extremity Surgical History Surgical History History of bilateral cataract extraction History of colonoscopy with polypectomy History of meniscectomy of right knee Status post surgical removal of malignant neoplasm of skin Family History Family History Mother Patient's mother is Social History Social History Social History: Surrogate medical decision maker: Code status: Full code. Smoking packs per day: 1.5 Smoking cigarettes per day: 30.0 Years smoked: 20 Smoking pack-years: 30.00 Smoking status: Former smoker Tobacco type: cigarettes Second hand tobacco smoke exposure: No Smoking end date: 09/11/79 Alcohol intake: never Substance use: never Substance use type: does not use Lack of Transportation: No Lack of Food: Never True Current Housing: I Have Housing Concerned About Future Housing: No Difficulty Paying Gas/Electric Bills: No Difficulty Paying for Meds: No Currently Unemployed: No Education: High School Diploma/GED Difficulty w/ Childcare or Family Care: No Living arrangements: with family Occupation/Education: retired Gender identity (if verbalized by the patient): Male Spiritual care concerns: No Anes - Eval Final PreProcedure Day of Procedure 08/11/23 10:15 Patient weight: normal Heart: regular rate and rhythm Lungs: clear to auscultation Airway: Mallampati scale class II Neurological: alert and oriented Last oral intake: >/= 8 hours ASA classification: IV Emergent: no Anesthetic plan: proceed Anesthesia type and monitoring: general GIVS and standard monitoring Results Review: All pre
[2023-08-11] MEDS: ceFAZolin 2 GM/D5W 50 ML 2 GM/50 ML BAG IVPB (10:26)
[2023-08-11] MEDS: BUPivacaine HCL 0.5% PF 30 ML VIAL INFILTRATE (10:49)
[2023-08-11] MEDS: LIDO 1%/EPINEPHRINE 1:100,000 50 ML VIAL INFILTRATE (10:50)
[2023-08-11 11:04] VITALS: BP 114/58; PULSE 70; RESP 14; O2SAT 99
[2023-08-11 12:00] VITALS: BP 115/59; PULSE 75; O2SAT 99
== END 2023-08-11 12:27 | disposition home or self-care (01) ==
PROVIDERS: PCP Internal Medicine; Visit Provider Plastic Surgery
PROC: 01N54ZZ Release Median Nerve, Percutaneous Endoscopic Approach (ICD-10-PCS; CPT 29848; principal; 2023-08-11 12:15)
DX: G56.02 Carpal tunnel syndrome, left upper limb (principal); G56.22 Lesion of ulnar nerve, left upper limb; E78.5 Hyperlipidemia, unspecified; R73.03 Prediabetes; Z79.51 Long term (current) use of inhaled steroids; Z77.090 Contact with and (suspected) exposure to asbestos; Z87.891 Personal history of nicotine dependence; Z85.828 Personal history of other malignant neoplasm of skin; Z86.11 Personal history of tuberculosis
CPT/HCPCS: 29848; 64718; 29125; J0690; J2405; J2704; J3010; J7120

== ENCOUNTER 2023-09-06 07:20 | Outpatient (CLI) | payer MEDICARE, SELFPAY ==
[2023-09-06 08:18] LABS: Alanine Aminotransferase 16 U/L (6-50); Albumin Level 4.1 g/dL (3.5-5.1); Alkaline Phosphatase 86 U/L (38-126); Anion Gap 7 mmol/L (8-16); Aspartate Amino Transferase 26 U/L (17-59); Bilirubin,Total 0.6 mg/dL (0.2-1.3); Blood Urea Nitrogen 19 mg/dL (9-20); Calcium 8.8 mg/dL (8.4-10.2); Carbon Dioxide 27 mmol/L (22-30); Chloride 105 mmol/L (98-107); Cholesterol 162 mg/dL (0-200); Estimated Glomerular Filt Rate > 60; Glucose 106 mg/dL (65-110); HDL Direct 41 mg/dL; Potassium 4.3 mmol/L (3.4-5.0); Sodium 139 mmol/L (137-145); Triglycerides 70 mg/dL (<150)
[2023-09-06 08:29] LABS: LDL Cholesterol Direct 89 mg/dL
[2023-09-06 08:44] LABS: Free T4 Free Thyroxine 1.29 ng/mL (0.78-2.19); Vitamin D 25 Hydroxy 48.4 ng/mL
[2023-09-06 12:35] LABS: Folic Acid > 20.0 ng/mL (2.76->20)
== END 2023-09-06 07:21 | disposition home or self-care (01) ==
LOC: ANHLAB 07:23
PROVIDERS: PCP Internal Medicine; Visit Provider Internal Medicine
DX: E78.2 Mixed hyperlipidemia (principal); E55.9 Vitamin D deficiency, unspecified; R79.89 Other specified abnormal findings of blood chemistry; Z79.899 Other long term (current) drug therapy; Z13.29 Encounter for screening for other suspected endocrine disorder
CPT/HCPCS: 36415; 80053; 80061; 82306; 82607; 82746; 84439; 84443

== ENCOUNTER 2023-09-15 00:32 | Day surgery (SDC) | payer MEDICARE, SELFPAY ==
--- NOTE | 2023-09-07 11:17 | PC.NURSE ---
Report to the Outpatient Waiting Room, entrance under the green pavilion located off [facility], at time __0630 on date _09/15/23 . Planned Procedure Time: _0830 . Time changes happen often and if your time is changed the preop area will call you the afternoon before. - You and your visitor will be asked to self-screen and do not enter if you have any COVID symptoms. - A mask is optional within the hospital at this time. Take the following medications with a SIP of water the morning of surgery: __TRELEGY INHALER, __NEBULIZER DO NOT STOP ANY OF YOUR OTHER PRESCRIPTION MEDICATIONS PRIOR TO SURGERY ?EXCEPT THE FOLLOWING Medications to discontinue per physician ___ALL VITAMINS AND SUPPLEMENTS 3 DAYS PRE OP .LAST DOSE 09/11/23 Please no make-up, nail irish, hairspray, perfume, deodorant, or body powder the day of surgery. No jewelry (including any body piercings) or valuables the day of surgery, leave them at home. Please take a shower or bath the night before, or the morning of, surgery with an antibacterial soap. Wear comfortable, loose fitting clothing. Children are encouraged to wear pajamas. - Jewelry must be removed prior to entering the operating room. Rings and piercings that are not removed may be cut off. - The hospital will not accept responsibility for valuables. - Please leave all valuables, including medications, at home the day of surgery. If you are going home after surgery, a licensed hook up driver must drive you home. - NO public transportation without another adult if you receive anesthesia. - We recommend that an adult stay with you for 24 hours following discharge. - We also recommend that you do not drive, make important decision, drink alcoholic beverages, or take any drugs that were not prescribed by your health care provider for at least 24 hours after your discharge time. Follow any additional instructions given to you from your surgeon. If you or anyone in your household have experienced Covid symptoms in the past week, please notify your surgeon or the nurse liaison at the phone number below for possible testing. Telephone instructions given to __PATIENT and asked if any additional questions and then verbalized understanding. Patient advised to call surgeon office or pre surgery nurse liaison [phone] if any additional questions.
[2023-09-07 11:22] VITALS: BMI 22.6
[2023-09-15 06:46] VITALS: BP 118/60; PULSE 70; RESP 18; TEMP 36.6; O2SAT 95
[2023-09-15] MEDS: LACTATED RINGERS 1,000 ML 30 ML IV CONT (06:50)
--- NOTE | 2023-09-15 06:51 | P.OP_ITS ---
Procedure Note - Detailed Date of Procedure 09/15/23 Pre-op Diagnosis Right cubital Tunnel syndrome Post-op Diagnosis Same Procedure Performed right cubital tunnel release Surgeon Peewee So MD [employer] gerardo coleman pa-c Anesthesia MAC Description of Procedure CUBITAL TUNNEL RELEASE INFORMED CONSENT:The patient was seen and examined and marked in the pre-op area.? The patient signed the consent form. PROCEDURE IN DETAIL: The patient taken back to OR on the stretcher in supine position. Time out performed with anesthesia, surgeon and staff agreeing on patient's name site and surgery to be performed SCDs were placed on the lower extremities and inflated A tourniquet was placed on {right} upper extremity and antibiotics given IV After anesthesia administered sedation I injected {10}cc 1%lido with epi and 0.5% marcaine plain at the operative site The?{right upper extremity}?was prepped and draped in sterile fashion the??{right upper extremity} was??exsanguinated with Esmarch bandage and tourniquet inflated to 250mmHg I next proceeded with making a longitudinal incision between two heads for flexor carpi ulnaris at end of {right} cubital tunnel with 15 blade scalpel.? Littler scissors were used to spread down to FCU fascia.? An incision was made in FCU fascia and ulnar nerve identified exiting cubital tunnel.? I proceeded with complete retrograde release of the cubital tunnel including 7cm proximal for the intermuscular septum.? The nerve appeared healthy with visible vaso nervorum.? There was no subluxation on full elbow range of motion. ? I irrigated with normal saline and closure with 4-0 monocryl for dermis and subcuticular. The incision was covered with Dermabond then 4x4s, oxana, and a posterior elbow splint for patient safety, security and comfort and secured with chioma bandages after the tourniquet was let down noting the hand was warm and well perfused.? Patient awaken from anesthesia and transferred to recovery in stable condition Complications - none EBL- 1cc Disposition - home in stable conditions Gerardo Coleman PA-C was essential for positioning, retraction, closure and dressing placement [facility] Billing Surgery - Charge Forward: Surgery Billing ([id number] for gerardo)
--- NOTE | 2023-09-15 06:51 | WPDHPUPDATE1 ---
History and Physical Update Update Date/Time: 09/15/23 06:51 Patient seen and examined in pre-operative holding area. No interval change in medical history or symptoms. Patient recalls previous discussion of benefits and alternatives to procedure. Continues to desire to proceed with right cubital tunnel release. Reviewed procedure, post-op expectations and risks including but not limited to bleeding, infection, injury to tendon/nerve/vessel, decreased hand function, stiffness, RSD, no change or worsening of symptoms. I discussed the possible use of assistants and their participation in the case. Patient stated understanding and signed the consent form wishing to proceed.
--- NOTE | 2023-09-15 07:49 | WPDANESEPPF ---
Anes - Initial Pre Proc Eval Procedure: Operation Date: 09/15/23 08:30 Proposed Procedures p Right Cubital Tunnel Release - Peewee So MD Date/Time: 09/15/23 07:49 Surgeon: Peewee So MD Pre Op Diagnosis: Right Carpal Tunnel Patient Data Age: 87 Gender: M Height: 1.82 m Weight: 72.3 kg Last Vital Signs Temp 36.6 C 09/15/23 06:46 Pulse 70 09/15/23 06:46 Resp 18 09/15/23 06:46 BP 118/60 09/15/23 06:46 Pulse Ox 95 09/15/23 06:46 O2 Del Method Nasal Cannula 09/15/23 06:46 O2 Flow Rate 4 09/15/23 06:46 Allergies Allergy/AdvReac Type Severity Reaction Status Date / Time No Known Allergies Allergy Verified 09/15/23 06:39 Home Medications Medication Instructions Recorded Confirmed Type montelukast 10 mg tablet 10 mg PO HS 07/26/19 09/07/23 History MaxFe (folate) 400 mg PO DAILY 07/14/22 09/07/23 History guaifenesin 400 mg tablet (Mucus 1,200 mg PO DAILY PRN Congestion 07/14/22 09/07/23 History Relief) mecobalamin (vitamin B12) 1,000 1,000 mcg PO DAILY 07/14/22 09/07/23 History mcg chewable tablet Home Nebulizer Machine and supplies #1 ea 02/01/23 08/02/23 Rx atorvastatin 20 mg tablet See Rx Instructions .Route 05/03/23 09/07/23 Rx .COMPLEX #90 tabs albuterol sulfate 2.5 mg/3 mL 2.5 mg inhalation Q6H PRN Wheezing 08/02/23 09/07/23 History (0.083 %) solution for nebulization fluticasone fur. 200 mcg-umeclid See Rx Instructions .Route 08/22/23 09/07/23 Rx 62.5 mcg-vilant 25 mcg .COMPLEX #60 ea inhalat.powder (Trelegy Ellipta) Patient hx anesthesia problems: none Family hx anesthesia problems: none Results Review: All pre-operative results and documents have been reviewed as part of the pre-operative evaluation. [facility] Past Medical History Medical History Asbestosis BMI 22.0-22.9, adult BMI 24.0-24.9, adult BMI 25.0-25.9,adult Chronic respiratory failure with hypoxia Constipation Costochondritis Former smoker Hearing loss Hyperlipidemia Lung nodule Pre-diabetes Skin neoplasm Squamous cell carcinoma of skin of left cheek Tuberculosis (1978) Vaccine for tetanus toxoid Weakness of upper extremity Surgical History Surgical History History of bilateral cataract extraction History of colonoscopy with polypectomy History of meniscectomy of right knee Status post surgical removal of malignant neoplasm of skin Family History Family History Mother Patient's mother is Social History Social History Social History: Surrogate medical decision maker: Code status: Full code. Smoking packs per day: 1.5 Smoking cigarettes per day: 30.0 Years smoked: 20 Smoking pack-years: 30.00 Smoking status: Former smoker Tobacco type: cigarettes Second hand tobacco smoke exposure: No Smoking end date: 09/11/78 Alcohol intake: never Substance use: never Substance use type: does not use Lack of Transportation: No Lack of Food: Never True Current Housing: I Have Housing Concerned About Future Housing: No Difficulty Paying Gas/Electric Bills: No Difficulty Paying for Meds: No Currently Unemployed: No Education: High School Diploma/GED Difficulty w/ Childcare or Family Care: No Living arrangements: with family Occupation/Education: retired Gender identity (if verbalized by the patient): Male Spiritual care concerns: No Anes - Eval Final PreProcedure Day of Procedure 09/15/23 07:49 Patient weight: normal Heart: regular rate and rhythm Lungs: decreased breath sounds Airway: Mallampati scale class II Neurological: alert and oriented Last oral intake: >/= 8 hours ASA classification: IV Emergent: no Anesthetic plan: proceed Anesthesia type and monitoring: g
[2023-09-15] MEDS: ceFAZolin 2 GM/D5W 50 ML 2 GM/50 ML BAG IVPB (08:15)
[2023-09-15] MEDS: LIDO 1%/EPINEPHRINE 1:100,000 50 ML VIAL 15 ML INFILTRATE (08:24)
[2023-09-15 08:36] VITALS: BP 100/58; PULSE 66; RESP 14; O2SAT 98
[2023-09-15 09:01] VITALS: BP 104/47; PULSE 67; O2SAT 96
[2023-09-15 09:30] VITALS: BP 116/53; PULSE 66; O2SAT 96
[2023-09-15 10:00] VITALS: BP 108/61; PULSE 66; O2SAT 96
== END 2023-09-15 10:19 | disposition home or self-care (01) ==
PROVIDERS: PCP Internal Medicine; Visit Provider Plastic Surgery
PROC: (CPT 64718; principal; 2023-09-15 08:30)
DX: G56.22 Lesion of ulnar nerve, left upper limb (principal); E78.5 Hyperlipidemia, unspecified; Z87.891 Personal history of nicotine dependence
CPT/HCPCS: 64718; J0690; J2405; J2704; J3010; J7120

== ENCOUNTER 2024-01-23 10:07 | Outpatient (CLI) | payer MEDICARE, SELFPAY ==
[2024-01-23 10:41] LABS: Basophils Absolute Auto 0.1 K/mm3 (0.0-0.1); Eosinophils Absolute Auto 0.3 K/mm3 (0-0.3); Eosinophils Percent Auto 4.2 % (0-4.4); Hemoglobin 15.8 g/dL (14.0-18.0); Immature Granulocyte Absolute 0.04 K/mm3 (0.00-0.031); Immature Granulocyte Percent A 0.5 % (0-0.5); Lymphocytes Percent Auto 15.6 % (18.3-44.2); Mean Corpuscular HGB Conc 32.2 g/dl (32-36); Mean Corpuscular Hemoglobin 30.4 pg (26-34); Mean Corpuscular Volume 94.2 fl (80-100); Mean Platelet Volume 9.1 fl (7.4-10.4); Monocytes Absolute Auto 0.7 K/mm3 (0.1-0.6); Neutrophils Absolute Auto 5.4 K/mm3 (1.3-6.7); Neutrophils Percent Auto 69.7 % (45.5-73.1); Platelet Count Result 255 k/mm3 (150-375); Red Cell Distribution Width 13.2 % (11.5-14.5); White Blood Count 7.7 K/mm3 (4.5-10.0)
[2024-01-23 10:51] LABS: Alanine Aminotransferase 16 U/L (6-50); Albumin Level 4.3 g/dL (3.5-5.1); Alkaline Phosphatase 96 U/L (38-126); Anion Gap 4 mmol/L (4-12); Aspartate Amino Transferase 24 U/L (17-59); Bilirubin,Total 0.7 mg/dL (0.2-1.3); Blood Urea Nitrogen 17 mg/dL (9-20); Calcium 9.2 mg/dL (8.4-10.2); Carbon Dioxide 30 mmol/L (22-30); Chloride 105 mmol/L (98-107); Cholesterol 156 mg/dL (0-200); Estimated Glomerular Filt Rate > 60; Glucose 99 mg/dL (65-110); HDL Direct 45 mg/dL; Potassium 5.2 mmol/L (3.4-5.0); Sodium 139 mmol/L (137-145); Triglycerides 66 mg/dL (<150)
[2024-01-23 11:01] LABS: LDL Cholesterol Direct 97 mg/dL
== END 2024-01-23 10:08 | disposition home or self-care (01) ==
LOC: ANHLAB 10:10
PROVIDERS: PCP Internal Medicine; Visit Provider Internal Medicine
DX: Z79.899 Other long term (current) drug therapy (principal); E78.2 Mixed hyperlipidemia
CPT/HCPCS: 36415; 80053; 80061; 85025

== ENCOUNTER 2024-07-02 10:57 | Outpatient (CLI) | payer MEDICARE, SELFPAY ==
[2024-07-02 11:32] LABS: Add Urine Microscopic? YES; Appearance Urine Clear (Clear); Bacteria Urine None Seen /hpf; Bilirubin Urine Negative (Negative); Blood Urine Negative (Negative); Color Urine Yellow (Yellow); Glucose Urine UA Negative (Negative); Ketones Urine Negative (Negative); Leukocyte Esterase Ur Negative LEU/UL (Negative); Nitrate Urine Negative (Negative); Non Pathogenic Casts 0-2; Protein Urine Trace mg/dL (Negative); RBC Urine 0-2 /hpf (0-2); Specific Grav Ur 1.021 (1.001-1.035); Squamous Epithelial Cell Urine None Seen /hpf (Few); WBC Urine 0-5 /hpf (0-3); pH Urine 6.5 (5.0-9.0)
[2024-07-02 12:40] LABS: Alanine Aminotransferase 12 U/L (6-50); Albumin Level 4.1 g/dL (3.5-5.1); Alkaline Phosphatase 82 U/L (38-126); Anion Gap 9 mmol/L (4-12); Aspartate Amino Transferase 19 U/L (17-59); Bilirubin,Total 0.6 mg/dL (0.2-1.3); Blood Urea Nitrogen 14 mg/dL (9-20); Calcium 8.7 mg/dL (8.4-10.2); Carbon Dioxide 26 mmol/L (22-30); Chloride 104 mmol/L (98-107); Cholesterol 157 mg/dL (0-200); Estimated Glomerular Filt Rate > 60; Glucose 131 mg/dL (65-110); HDL Direct 39 mg/dL; Potassium 3.6 mmol/L (3.4-5.0); Sodium 139 mmol/L (137-145); Triglycerides 118 mg/dL (<150)
[2024-07-02 12:51] LABS: LDL Cholesterol Direct 88 mg/dL
== END 2024-07-02 10:58 | disposition home or self-care (01) ==
LOC: ANHLAB 10:58
PROVIDERS: PCP Internal Medicine; Visit Provider Internal Medicine
DX: E78.2 Mixed hyperlipidemia (principal); Z79.899 Other long term (current) drug therapy
CPT/HCPCS: 36415; 80053; 80061; 81001

== ENCOUNTER 2024-11-18 09:35 | Outpatient (CLI) | payer MEDICARE, SELFPAY ==
[2024-11-18 09:59] LABS: Basophils Absolute Auto 0.1 K/mm3 (0.0-0.1); Basophils Percent Auto 0.9 % (0.2-1.2); Eosinophils Absolute Auto 0.2 K/mm3 (0-0.3); Eosinophils Percent Auto 4.1 % (0-4.4); Hematocrit 45.2 % (42.0-52.0); Hemoglobin 14.9 g/dL (14.0-18.0); Immature Granulocyte Absolute 0.02 K/mm3 (0.00-0.031); Immature Granulocyte Percent A 0.4 % (0-0.5); Lymphocytes Absolute Auto 1.12 K/mm3 (0.9-3.2); Mean Corpuscular Hemoglobin 30.3 pg (26-34); Mean Corpuscular Volume 91.9 fl (80-100); Mean Platelet Volume 9.3 fl (7.4-10.4); Monocytes Absolute Auto 0.5 K/mm3 (0.1-0.6); Monocytes Percent Auto 8.4 % (2.6-8.5); Neutrophils Absolute Auto 3.7 K/mm3 (1.3-6.7); Neutrophils Percent Auto 66.2 % (45.5-73.1); Platelet Count Result 226 k/mm3 (150-375); Red Blood Count 4.92 M/mm3 (4.6-6.20); Red Cell Distribution Width 13.2 % (11.5-14.5); White Blood Count 5.6 K/mm3 (4.5-10.0)
[2024-11-18 10:10] LABS: Alanine Aminotransferase 18 U/L (6-50); Albumin Level 4.2 g/dL (3.5-5.1); Alkaline Phosphatase 98 U/L (38-126); Anion Gap 5 mmol/L (4-12); Aspartate Amino Transferase 24 U/L (17-59); Bilirubin,Total 0.5 mg/dL (0.2-1.3); Blood Urea Nitrogen 19 mg/dL (9-20); Calcium 8.9 mg/dL (8.4-10.2); Carbon Dioxide 30 mmol/L (22-30); Chloride 104 mmol/L (98-107); Cholesterol 143 mg/dL (0-200); Estimated Glomerular Filt Rate > 60; Glucose 126 mg/dL (65-110); HDL Direct 39 mg/dL; Potassium 3.8 mmol/L (3.4-5.0); Sodium 139 mmol/L (137-145); Triglycerides 126 mg/dL (<150)
[2024-11-18 10:21] LABS: LDL Cholesterol Direct 76 mg/dL
[2024-11-18 10:41] LABS: Thyroid Stimulating Hormone 0.515 uIU/mL (0.465-4.680)
--- OUTSIDE RECORDS SUMMARY | 2024-11-18 10:55 | XMS_ITS | Referral Summary ---
Author Organization [facility] Address [address] [address] Care Team Providers Care Esthetician/Skin Therapist Name Role Phone Carlos Garcia MD Primary Care Provider [phone] Dusty Raza MD Unavailable [phone] Ramon Tolliver MD Unavailable [phone] Encounters Date Type Department Care Team Description 10/14/2024 9:00 AM FIELD ADMINISTRATOR Office Visit [facility] 2 Radiation Oncology [address] [place] [address] [phone] Dusty Raza MD Lung nodule (Primary Dx) 10/10/2024 1:30 PM FIELD ADMINISTRATOR Office Visit [facility] Medical [facility] [address] [place] [address] Suite [facility][note 3] [place] [phone] Karrie James NP Obstructive sleep apnea syndrome (Primary Dx); Persistent disorder of initiating or maintaining sleep; Panlobular emphysema (HCC); Bronchiectasis without complication (HCC) 09/30/2024 12:41 PM FIELD ADMINISTRATOR - 09/30/2024 11:59 PM FIELD ADMINISTRATOR Hospital Encounter [facility] [address] [place] [id number] Lung nodule Discharge Disposition: Discharge to home or self care from Last 3 Months Allergies No known active allergies Medications cyanocobalamin (Vitamin B-12) 1,000 mcg tabletIndication s:Prevention of Vitamin B12 Deficiency Take 1 tablet (1,000 mcg total) by mouth daily Active folic acid (FOLVITE) 800 mcg tablet Take 0.5 tablets (400 mcg total) by mouth daily Active guaiFENesin ER (MUCINEX) 600 mg 12 hr tablet Take 2 tablets (1,200 mg total) by mouth 2 (two) times a day Active albuterol 2.5 mg /3 mL (0.083 %) nebulizer solution USE 1 VIAL IN NEBULIZER EVERY 6 HOURS FOR COPD 3 Active atorvastatin (LIPITOR) 40 mg tablet Take 1 tablet (40 mg total) by mouth daily 4 Active albuterol HFA (PROVENTIL HFA,VENTOLIN HFA,PROAIR HFA) 90 mcg/actuation inhalerIndicatio ns:Asthma, unspecified asthma severity, unspecified whether complicated, unspecified whether persistent INHALE 2 PUFFS BY MOUTH EVERY 4 TO 6 HOURS NEEDED FOR SHORTNESS OF BREATH OR WHEEZING 9 g 3 4 Active montelukast (SINGULAIR) 10 mg tablet TAKE 1 TABLET BY MOUTH NIGHTLY AT BEDTIME 90 tablet 3 5 Active Trelegy Ellipta 200-62.5-25 mcg inhaler Inhale 1 puff daily 30 each 11 5 10/10/19 26 Active Active Problems Problem Noted Date Diagnosed Date Other pneumothorax 02/02/2023 Chronic respiratory failure 02/02/2023 Bronchogenic lung cancer, right 02/02/2023 Lung nodule 08/08/2022 Persistent disorder of initiating or maintaining sleep 08/05/2019 Assessment & Plan (08/05/2019 11:57 AM FIELD ADMINISTRATOR): He will take trazodone 50 mg every night at bedtime. Asthma 03/19/2018 Overview (03/19/2018): Asthma; Comments: CHARLEEN 08/01/2014 - Bronchiectasis 06/14/2017 Overview (06/14/2017): Bronchiectasis; Comments: CHARLEEN 08/01/2014 - Body mass index 20-24 - normal 02/07/2017 Overview (02/10/2017): Body mass index (BMI) of 23.0 to 23.9 in adult Panlobular emphysema 02/02/2016 Overview (12/16/2016): Panlobular emphysema Assessment & Plan (08/05/2019 11:59 AM FIELD ADMINISTRATOR): He will continue with O2 at 4 L at rest and 5 L with ambulation. He will have O2 at 4 L bled into his CPAP 8 cm water pressure. Assessment & Plan (02/07/2019 12:08 PM CDT): COPD is improving with lifestyle modifications. Continue current medications. He will use O2 at 4 L at rest. He will use O2 at 5-6 L with ambulation. He will have O2 at 4 L bleed into his CPAP 8 cm nightly. Assessment & Plan (08/09/2018 12:15 PM FIELD ADMINISTRATOR): He will take Spiriva 1 capsule inhaled daily. He will remain on O2 at 5 L with rest, 6 with exertion and O2 at 3 L bleed into his CPAP. Assessment & Plan (07/06/2018 11:13 AM CDT): COPD is improving with lifestyle modifications. Continue current medications. He will continue with Spiriva Handy haler 1 inhalation daily. He will remain active. He will use O2 at 5 L with exertion. Hypoxemia 02/04/2015 Overview (12/16/2016): Nocturnal hypoxemia due to emphysema Assessment & Plan (08/05/2019 11:58 AM FIELD ADMINISTRATOR): He will continue with O2 at 4 L at rest and 5 L with ambulation. He will have O2 at 4 L bled into his CPAP 8 cm water pressure. Assessment & Plan (02/07/2019 12:09 PM CDT): Patient uses continuous oxygen 4 L at rest and 5-6 L with ambulation. He has O2 at 4 L bled into his CPAP 8 cm water pressure nightly. Assessment & Plan (08/09/2018 12:16 PM FIELD ADMINISTRATOR): He will continue with continuous oxygen 5 L at rest, 6 L with exertion and 3 L bleed into his CPAP. Assessment & Plan (07/06/2018 11:14 AM CDT): He will use O2 at 5 L with exertion and at rest. He will use 3 L of oxygen bled into his CPAP machine nightly. Assessment & Plan (12/29/2017 11:13 AM CDT): Uses O2 continuously 5 L at rest and with ambulation and 3 L bleed in to CPAP. Abnormal computed tomography scan 10/07/2014 Overview (12/16/2016): Abnormal CT scan of lung Assessment & Plan (08/05/2019 11:58 AM FIELD ADMINISTRATOR): He will get a follow-up CT scan of the chest without contrast to follow up on nodules this will be a 1 year follow-up Assessment & Plan (02/07/2019 12:09 PM CDT): Patient had repeat CT scan continues to show multiple pulmonary nodules unchanged. He will have a repeat CT of the chest without contrast in 1 year. Assessment & Plan (08/09/2018 12:16 PM FIELD ADMINISTRATOR): He will have a follow-up CT of the chest without contrast completed in 6 months to reassess pulmonary nodules with particular attention to nodule in right upper lobe. Assessment & Plan (07/06/2018 11:15 AM CDT): Patient has history of mycobacterium tuberculosis. He has numerous pulmonary nodules, emphysema and scarring. He will have a CT of the chest completed for screening purposes and follow-up to nodules. Obstructive sleep apnea syndrome 10/07/2014 Overview (12/16/2016): Obstructive sleep apnea Assessment & Plan (08/05/2019 11:59 AM FIELD ADMINISTRATOR): He will continue with O2 at 4 L at rest and 5 L with ambulation. He will have O2 at 4 L bled into his CPAP 8 cm water pressure. Assessment & Plan (02/07/2019 12:09 PM CDT): He will wear CPAP at 8 cm water pressure plus O2 at 4 L bleed in nightly for 7-9 hours. If he takes a nap he will also use his CPAP and oxygen. Assessment & Plan (08/09/2018 12:15 PM FIELD ADMINISTRATOR): He was refit and given an air touch large fullface mask. He will wear his CPAP 8 cm water pressure with O2 at 3 L bleed in nightly for 8-9 hours. Assessment & Plan (07/06/2018 11:14 AM CDT): He will use his CPAP machine nightly for 7-9 hours. He is benefitting from the use of his CPAP machine. Assessment & Plan (12/29/2017 11:12 AM CDT): He will wear his CPAP 8 cm water pressure with O2 at 3 L nightly for 7-9 hours. Acute exacerbation of chroni c obstructive pulmonary disease (COPD) 10/07/2014 Overview (12/16/2016): COPD (chronic obstructive pulmonary disease) Assessment & Plan (08/05/2019 11:58 AM FIELD ADMINISTRATOR): He will continue with O2 at 4 L at rest and 5 L with ambulation. He will have O2 at 4 L bled into his CPAP 8 cm water pressure. Assessment & Plan (12/29/2017 11:13 AM CDT): COPD is Stable. Continue current medications. He will use his O2 at 5 L with ambulation and rest and O2 at 3 L bleed in the CPAP. He will continue with Advair 250/50 1 inhalation daily, and Spiriva Handihaler. COVID-19 virus infection Social History Tobacco Use Types Packs/Day Years Used Date Smoking Tobacco: Former Smokeless Tobacco: Never Tobacco Cessation:Counseling Given: Not Answered Alcohol Use Standard Drinks/Week Comments No 0 (1 standard drink = 0.6 oz pur e alcohol) Social Connection and Isolat ion Panel [NHANES] Answer Date Recorded In a typical week, how many times do you talk on the phone with family, friends, or neighbors? More than three times a week 02/02/2023 How often do you get togethe r with friends or relatives? More than three times a week 02/02/2023 How often do you attend chur ch or mandaeism services? Never 02/02/2023 Do you belong to any clubs o r organizations such as religion groups, unions, fraternal or athletic groups, or school groups? No 02/02/2023 How often do you attend meet ings of the clubs or organizations you belong to? Never 02/02/2023 Are you , , di vorced, , never , or living with a partner? 02/02/2023 AUDIT-C Answer Date Recorded Q1: How often do you have a drink containing alcohol? Never 02/02/2023 Q2: How many drinks containi ng alcohol do you have on a typical day when you are drinking? Patient does not drink Q3: How often do you have si x or more drinks on one occasion? Never 02/02/2023 Overall Financial Resource Strain (CARDIA) Answe r Date Recorded How hard is it for you to pa y for the very basics like food, housing, medical care, and heating? Not hard at all 02/02/2023 Hunger Vital Sign Answer Date Recorded Within the past 12 months, y ou worried that your food would run out before you got the money to buy more. Never true 02/03/20 23 Within the past 12 months, t he food you bought just didn't last and you didn't have money to get more. Never true 02/02/2023 PRAPARE - Transportation Answer Date Re corded In the past 12 months, has l ack of transportation kept you from medical appointments or from getting medications? No 01/10 In the past 12 months, has l ack of transportation kept you from meetings, work, or from getting things needed for daily living? No 02/02/2023 Housing Stability Vital Sign Answer Britton e Recorded In the last 12 months, was t here a time when you were not able to pay the mortgage or rent on time? No 02/02/2023 In the last 12 months, how many places have you lived? 1 02/02/2023 In the last 12 months, was t here a time when you did not have a steady place to sleep or slept in a longterm (including now)? No 02/02/2023 Personal Safety Answer Date Recorded Have you ever been in or are you currently in a harmful physical or emotional relationship or is someone making you feel afraid or unsafe? Denies 02/02/2023 Sex and Gender Information Value Date Recorded Sex Assigned at Not on file Legal Sex Male 8:31 PM FIELD ADMINISTRATOR Gender Identity Not on file Sexual Orientation Not on file Last Filed Vital Signs Vital Sign Reading Time Taken Comments Blood Pressure 127/66 10/14/2024 9:02 AM FIELD ADMINISTRATOR Pulse 77 10/14/2024 9:02 AM FIELD ADMINISTRATOR Temperature 36.7 C (98 F) 10/10/2024 1:41 PM FIELD ADMINISTRATOR Respiratory Rate 20 10/10/2024 1:41 PM FIELD ADMINISTRATOR Oxygen Saturation 95% 10/14/2024 9:02 AM FIELD ADMINISTRATOR 4L portable O2 Inhaled Oxygen Concentration - - Weight 76.2 kg (168 lb) 10/14/2024 9:02 AM FIELD ADMINISTRATOR Height 174 cm (5' 8.5 ) 10/10/2024 1:41 PM FIELD ADMINISTRATOR Body Mass Index 25.17 10/10/2024 1:41 PM FIELD ADMINISTRATOR Plan of Treatment Not on file Procedures Procedure Name Priority Date/Time Associated Diagnosis Comments CT CHEST WO CONTRAST Schedule Routine, Read Routine (OP Routine) 09/30/2024 12:56 PM FIELD ADMINISTRATOR Lung nodule from Last 3 Months Results * CT Chest WO Contrast (09/30/2024 12:56 PM FIELD ADMINISTRATOR) Anatomical Region Laterality Modality Body N/A Computed Tomogra phy 10/01/2024 12:2 8 PM FIELD ADMINISTRATOR Narrative 10/01/2024 12:41 PM FIELD ADMINISTRATOR EXAM DESCRIPTION: CT CHEST WO CONTRAST REASON FOR STUDY: Non-small cell lung cancer (NSCLC), monitor 3 month lung nodule/lung cancer f/u. No complaints. Per patient, originally found nodule in 2001, then diagnosed with lung cancer in 2012. TECHNIQUE: CT scan of the chest performed without intravenous contrast using helical scanning technique. Reconstructed coronal and sagittal MPR images reviewed. All images stored on PACS. Automated exposure control was used as a dose optimization technique for this examination. COMPARISON: 06/27/2024 FINDINGS: The sensitivity for detection of solid visceral lesions is diminished without the use of intravenous contrast. LUNGS: There is no definite evidence of a pneumothorax. The central airways are grossly patent. There is scattered bronchial wall thickening, which is likely related to chronic bronchitis/bronchiolitis. There are severe emphysematous changes of lungs with scattered subsegmental atelectasis and scarring. There is no definite evidence of new focal consolidation or pleural effusion. There are scattered calcified granulomas noted. There is grossly stable partially calcified granuloma in the medial left lower lobe measuring 1.2 cm, which is grossly unchanged since 02/07/2017, and does not require follow-up imaging. There is redemonstration of mild patchy consolidative airspace opacities in the posterior right upper lobe, which is overall grossly unchanged since 12/14/2022, and likely related to treated disease with postradiation/posttreatment changes (axial image 97). There is redemonstration of the irregular linear and mildly nodular opacity in the left upper lobe extending to the left lung apex and anterior left upper lobe pleural surface, which is overall similar to the prior study, and likely related to treated disease with the associated chronic parenchymal scarring and atelectasis. There are scattered pulmonary nodules noted, which are overall grossly similar to prior CT dated 02/07/2017, and therefore likely benign. For example, there is a stable 0.4 cm pulmonary nodule in the posterior right upper lobe (axial image 155). There is a stable 0.4 cm pulmonary nodule in the anterior right upper lobe near the right minor fissure (axial image 196). There is a stable irregular 0.7 x 0.3 cm pulmonary nodule in the posterior left upper lobe (axial image 61). There is a stable 0.6 cm left upper lobe pulmonary nodule (axial image 80). There is a stable 0.4 cm pulmonary nodule in the medial left upper lobe (axial image 119). There is a stable 0.4 cm pulmonary nodule in the lateral left lower lobe (axial image 229). MEDIASTINUM/NII: No identified masses or abnormal nodes. CORONARY ARTERY CALCIFICATION: Present. The heart size is stable. There is no definite evidence of pericardial effusion. There are atherosclerotic changes of the thoracic aorta and coronary vessels. There is no definite unenhanced CT evidence of mediastinal, hilar, or axillary lymphadenopathy. There are scattered prominent subcentimeter mediastinal lymph nodes noted with largest measuring 0.9 cm in the subcarinal region (axial image 160). CHEST WALL: No masses. No subcutaneous air. HARDWARE/LINES/TUBES: None. UPPER ABDOMEN: There is a small hiatal hernia. Bilateral adrenal glands are grossly stable and unremarkable. MUSCULOSKELETAL: There is mild osteopenia. There is a minimal to mild reverse S shaped scoliotic curvature of the spine with degenerative changes. OTHER: No other significant abnormality. IMPRESSION: Redemonstration of mild patchy consolidative airspace opacities in the posterior right upper lobe, which is overall grossly unchanged since 12/14/2022, and likely related to treated disease with postradiation/posttreatment changes. Redemonstration of the irregular linear and mildly nodular opacity in the left upper lobe extending to the left lung apex and anterior left upper lobe pleural surface, which is overall similar to the prior study, and likely related to treated disease with the associated chronic parenchymal scarring and atelectasis. Scattered pulmonary nodules noted, which are overall grossly similar to prior CT dated 02/07/2017, and therefore likely benign. Severe emphysematous changes of lungs with scattered subsegmental atelectasis and scarring. No definite evidence of new focal consolidation. Scattered bronchial wall thickening, which is likely related to chronic bronchitis/bronchiolitis. THIS IS AN ELECTRONICALLY VERIFIED FINAL REPORT 10/01/2024 12:41 PM - Electronically signed by Virginia Omalley D.O. PS: PS Report ID: [id number] Reading Location: [id number] Procedure Note Virginia Omalley, - 10/01/2024 EXAM DESCRIPTION: CT CHEST WO CONTRAST REASON FOR STUDY: Non-small cell lung cancer (NSCLC), monitor 3 month lung nodule/lung cancer f/u. No complaints. Per patient,originally found nodule in 2001, then diagnosed with lung cancer in 2012. TECHNIQUE: CT scan of the chest performed without intravenous contrastusing helical scanning technique. Reconstructed coronal and sagittal MPR images reviewed. All images stored on PACS. Automated exposure control was usedas a dose optimization technique for this examination. COMPARISON: 06/27/2024 FINDINGS: The sensitivity for detection of solid visceral lesions is diminished without the use of intravenous contrast. LUNGS: There is no definite evidence of a pneumothorax. The centralairways are grossly patent. There is scattered bronchial wall thickening, whichis likely related to chronic bronchitis/bronchiolitis. There are severe emphysematous changes of lungs with scattered subsegmental atelectasis and scarring. There is no definite evidence of new focal consolidation orpleural effusion. There are scattered calcified granulomas noted. There isgrossly stable partially calcified granuloma in the medial left lower lobemeasuring 1.2 cm, which is grossly unchanged since 02/07/2017, and does not require follow-up imaging. There is redemonstration of mild patchy consolidative airspace opacitiesin the posterior right upper lobe, which is overall grossly unchanged since 12/14/2022, and likely related to treated disease with postradiation/posttreatment changes (axial image 97). There is redemonstration of the irregular linear and mildly nodularopacity in the left upper lobe extending to the left lung apex and anterior leftupper lobe pleural surface, which is overall similar to the prior study, andlikely related to treated disease with the associated chronic parenchymalscarring and atelectasis. There are scattered pulmonary nodules noted, which are overall grosslysimilar to prior CT dated 02/07/2017, and therefore likely benign. For example,there is a stable 0.4 cm pulmonary nodule in the posterior right upper lobe(axial image 155). There is a stable 0.4 cm pulmonary nodule in the anteriorright upper lobe near the right minor fissure (axial image 196). There is astable irregular 0.7 x 0.3 cm pulmonary nodule in the posterior left upper lobe (axial image 61). There is a stable 0.6 cm left upper lobe pulmonarynodule (axial image 80). There is a stable 0.4 cm pulmonary nodule in the medial left upper lobe (axial image 119). There is a stable 0.4 cm pulmonarynodule in the lateral left lower lobe (axial image 229). MEDIASTINUM/NII: No identified masses or abnormal nodes. CORONARY ARTERY CALCIFICATION: Present. The heart size is stable. Thereis no definite evidence of pericardial effusion. There are atherosclerotic changes of the thoracic aorta and coronary vessels. There is no definite unenhanced CT evidence of mediastinal, hilar, oraxillary lymphadenopathy. There are scattered prominent subcentimeter mediastinal lymph nodes noted with largest measuring 0.9 cm in the subcarinal region (axial image 160). CHEST WALL: No masses. No subcutaneous air. HARDWARE/LINES/TUBES: None. UPPER ABDOMEN: There is a small hiatal hernia. Bilateral adrenal glandsare grossly stable and unremarkable. MUSCULOSKELETAL: There is mild osteopenia. There is a minimal to mild reverse S shaped scoliotic curvature of the spine with degenerativechanges. OTHER: No other significant abnormality. IMPRESSION: Redemonstration of mild patchy consolidative airspace opacities in the posterior right upper lobe, which is overall grossly unchanged since 12/14/2022, and likely related to treated disease with postradiation/posttreatment changes. Redemonstration of the irregular linear and mildly nodular opacity in the left upper lobe extending to the left lung apex and anterior left upperlobe pleural surface, which is overall similar to the prior study, and likely related to treated disease with the associated chronic parenchymalscarring and atelectasis. Scattered pulmonary nodules noted, which are overall grossly similar topwoodlynr CT dated 02/07/2017, and therefore likely benign. Severe emphysematous changes of lungs with scattered subsegmentalatelectasis and scarring. No definite evidence of new focal consolidation. Scattered bronchial wall thickening, which is likely related to chronic bronchitis/bronchiolitis. THIS IS AN ELECTRONICALLY VERIFIED FINAL REPORT 10/01/2024 12:41 PM - Electronically signed by Virginia Omalley D.O. PS: PS Report ID: [id number] Reading Location: [id number] Dusty Raza MD IMG CT PROCEDURES Final Result from Last 3 Months Insurance COMMERCIAL GENERIC MEDICARE [employer] [facility] Advance Directives For more information, please contact: [phone] * Full Code (Latest Code Status on File) Date Activated Date Inactivated Comments 02/02/2023 2:43 AM 02/03/2023 8:21 PM Care Teams Esthetician/Skin Therapist Relationship Specialty Start Date End Date Carlos Garcia MD [address] [facility] [address] [facility] [address] [place] [address] PCP - General 02/02/16 Dutsy Raza MD [facility] [address] Radiation Oncologist Radiation Oncology 12/11/23 Ramon Tolliver MD [address] [facility] [address] [place] [address] Referring Physician Thoracic Surgery 12/11/23
--- OUTSIDE RECORDS SUMMARY | 2024-11-18 10:55 | XMS_ITS | Encounter Summary ---
Author Organization [facility] Healthcare Address [address] [place] [address] Care Team Providers Care Design Engineer Name Role Phone Carlos Garcia MD Primary Care Provider [phone] Dusty Raza MD Unavailable [phone] Dusty Raza MD Unavailable [phone] Ramon Tolliver MD Unavailable [phone] Encounter Details Date Type Department Care Team (Late st Contact Info) Description 02/20/2020 Telephone [facility] Imaging [address] [place] [address] Jarrell Jolley, RT Social History Tobacco Use Types Packs/Day Years Used Date Smoking Tobacco: Former Alcohol Use Standard Drinks/Week Comments No 0 (1 standard drink = 0.6 oz pur e alcohol) Sex and Gender Information Value Date Recorded Sex Assigned at Not on file Legal Sex Male 8:31 PM WINDOWS SYSTEMS ADMINISTRATOR Gender Identity Not on file Sexual Orientation Not on file documented as of this encounter Plan of Treatment Not on file documented as of this encounter Visit Diagnoses Not on filedocumented in this encounter Additional Health Concerns Infection Onset Date Last Indicated Resolved Time COVID: Suspected 02/02/2023 02/02/2023 02/02/2023 9:35 AM CDT COVID19 02/02/2023 02/02/2023 02/13/2023 3:05 AM CDT COVID: Recovered Comment:Added based on recent COVID infection. 02/13/2023 03/16/2023 05/14/2023 3:05 AM C DT documented as of this encounter Care Teams Design Engineer Relationship Specialty Start Date End Date Carlos Garcia MD [address] [facility] [address] [place] [address] PCP - General 02/02/16 Dusty Raza MD [address] [facility] [address] [place] [address] Radiation Oncologist Radiation Oncology 08/29/22 Dusty Raza MD [address] [place] [address] Radiation Oncologist Radiation Oncology 12/11/23 Ramon Tolliver MD [address] [address] Referring Physician Thoracic Surgery 12/11/23 documented as of this encounter
--- OUTSIDE RECORDS SUMMARY | 2024-11-18 10:55 | XMS_ITS | Clinical Summary ---
Author Organization [facility] Address [address] [address] Care Team Providers Care Student Activities Director Name Role Phone Carlos Garcia MD Primary Care Provider [phone] Dusty Raza MD Unavailable [phone] Ramon Tolliver MD Unavailable Allergies No known active allergies Medications cyanocobalamin [...] 08/05/2019 Assessment & Plan (08/05/2019 11:57 AM AUTOMOTIVE ELECTRICIAN HELPER): He will take trazodone 50 mg every night at bedtime. Asthma 03/19/2018 Overview (03/19/2018): Asthma; Comments: [facility] 08/01/2014 - Bronchiectasis 06/14/2017 Overview (06/14/2017): Bronchiectasis; Comments: [facility] 08/01/2014 - Body mass index 20-24 - normal 02/07/2017 Overview (02/10/2017): Body mass index (BMI) of 23.0 to 23.9 in adult Panlobular emphysema 02/02/2016 Overview (12/16/2016): Panlobular emphysema Assessment & Plan (08/05/2019 11:59 AM AUTOMOTIVE ELECTRICIAN HELPER): He will continue with O2 at 4 [...] nightly. Assessment & Plan (08/09/2018 12:15 PM AUTOMOTIVE ELECTRICIAN HELPER): He will take Spiriva 1 capsule inhaled [...] emphysema Assessment & Plan (08/05/2019 11:58 AM AUTOMOTIVE ELECTRICIAN HELPER): He will continue with O2 at 4 [...] nightly. Assessment & Plan (08/09/2018 12:16 PM AUTOMOTIVE ELECTRICIAN HELPER): He will continue with continuous oxygen 5 [...] lung Assessment & Plan (08/05/2019 11:58 AM AUTOMOTIVE ELECTRICIAN HELPER): He will get a follow-up CT scan of the chest without contrast to follow up on nodules this will be a 1 year follow-up Assessment & Plan (02/07/2019 12:09 PM CDT): Patient had repeat CT scan continues to show multiple pulmonary nodules unchanged. He will have a repeat CT of the chest without contrast in 1 year. Assessment & Plan (08/09/2018 12:16 PM AUTOMOTIVE ELECTRICIAN HELPER): He will have a follow-up CT of [...] apnea Assessment & Plan (08/05/2019 11:59 AM AUTOMOTIVE ELECTRICIAN HELPER): He will continue with O2 at 4 [...] oxygen. Assessment & Plan (08/09/2018 12:15 PM AUTOMOTIVE ELECTRICIAN HELPER): He was refit and given an air [...] disease) Assessment & Plan (08/05/2019 11:58 AM AUTOMOTIVE ELECTRICIAN HELPER): He will continue with O2 at 4 [...] daily, and Spiriva Handihaler. COVID-19 virus infection Encounters Date Type Department Care Team Description 10/14/2024 9:00 AM AUTOMOTIVE ELECTRICIAN HELPER Office Visit [facility] 2 Radiation Oncology [address] [place] [address] Dusty Raza MD Lung nodule (Primary Dx) 10/10/2024 1:30 PM AUTOMOTIVE ELECTRICIAN HELPER Office Visit [facility] [address] [place] [address] [place] [address] Karrie James NP Obstructive sleep apnea syndrome (Primary Dx); Persistent disorder of initiating or maintaining sleep; Panlobular emphysema (HCC); Bronchiectasis without complication (HCC) 09/30/2024 12:41 PM AUTOMOTIVE ELECTRICIAN HELPER - 09/30/2024 11:59 PM AUTOMOTIVE ELECTRICIAN HELPER Hospital Encounter [facility] [address] [place] [id number] Lung nodule Discharge Disposition: Discharge to home or self care from Last 3 Months Surgical History Surgery Date Site/Laterality Comments COLONOSCOPY CATARACT EXTRACTION, BILATERAL SKIN CANCER EXCISION Malignant tumor ULNAR NERVE REPAIR Bilateral August 2023, September 2023 Medical History Medical History Date Comments Asthma Asthma; Comments : [facility] 08/01/2014 - Bronchiectasis (HCC) Bronchiecta sis; Comments: [facility] 08/01/2014 - Pulmonary emphysema (HCC) Emphys kala Chronic obstructive pulmonar y disease (HCC) COPD Gastroesophageal reflux disease GERD; Comments: [facility] 08/01/2014 - Peptic ulcer Peptic ulcer dis ease; Comments: [facility] 08/01/2014 - Pertussis Pertussis; Comme nts: [facility] 08/01/2014 - Shortness of breath Dyspnea; Com ments: [facility] 08/01/2014 - Hypertension Hypertension Tuberculoma Tuberculosis Hx Other Medical Abnormal CT sca n of lung; Comments: [facility] 01/30/2017 - Bronchogenic lung cancer, 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 Never 02/02/2023 Do you belong to any clubs o r organizations such as hindu groups, unions, fraternal or athletic groups, or [...] you are drinking? Patient does not drink 3 Q3: How often do you have si [...] place to sleep or slept in a alf (including now)? No 02/02/2023 Personal Safety Answer Date Recorded Have you ever been in or are you currently in a harmful physical or emotional relationship or is someone making you feel afraid or unsafe? Denies 02/02/2023 Sex and Gender Information Value Date Recorded Sex Assigned at Not on file Legal Sex Male 8:31 PM AUTOMOTIVE ELECTRICIAN HELPER Gender Identity Not on file Sexual Orientation Not on file Obstetrics History Last Filed Vital Signs Vital Sign Reading Time Taken Comments Blood Pressure 127/66 10/14/2024 9:02 AM AUTOMOTIVE ELECTRICIAN HELPER Pulse 77 10/14/2024 9:02 AM AUTOMOTIVE ELECTRICIAN HELPER Temperature 36.7 C (98 F) 10/10/2024 1:41 PM AUTOMOTIVE ELECTRICIAN HELPER Respiratory Rate 20 10/10/2024 1:41 PM AUTOMOTIVE ELECTRICIAN HELPER Oxygen Saturation 95% 10/14/2024 9:02 AM AUTOMOTIVE ELECTRICIAN HELPER 4L portable O2 Inhaled Oxygen Concentration - - Weight 76.2 kg (168 lb) 10/14/2024 9:02 AM AUTOMOTIVE ELECTRICIAN HELPER Height 174 cm (5' 8.5 ) 10/10/2024 1:41 PM AUTOMOTIVE ELECTRICIAN HELPER Body Mass Index 25.17 10/10/2024 1:41 PM AUTOMOTIVE ELECTRICIAN HELPER Plan of Treatment Health Maintenance Due Date Last Done Comments Depression Screening 1935 DTaP/Tdap/Td Vaccine (1 - Tdap) 1948 Hepatitis B Screening 11/19/1955 Zoster Vaccine (1 of 2) 11/19/1987 Well Visit 65+ 2002 Fall Risk Assessment 02/04/2024 02/03/2023 Influenza Vaccine (#1) 2024 9, 05/14/2018, 05/16/2017, Additional history exists Pneumococcal vaccine 65+ Completed 06/18/2015, 07/12 Procedures Procedure Name Priority Date/Time Associated Diagnosis Comments CT CHEST WO CONTRAST Schedule Routine, Read Routine (OP Routine) 09/30/2024 12:56 PM AUTOMOTIVE ELECTRICIAN HELPER Lung nodule from Last 3 Months Results * CT Chest WO Contrast (09/30/2024 12:56 PM AUTOMOTIVE ELECTRICIAN HELPER) Anatomical Region Laterality Modality Body N/A Computed Tomogra phy 10/01/2024 12:2 8 PM AUTOMOTIVE ELECTRICIAN HELPER Narrative 10/01/2024 12:41 PM AUTOMOTIVE ELECTRICIAN HELPER EXAM DESCRIPTION: CT CHEST WO CONTRAST REASON [...] Virginia Omalley D.O. PS: PS Report ID: [id number] Reading Location: [id number] Procedure Note Virginia Omalley, DO - 10/01/2024 EXAM DESCRIPTION: CT CHEST WO [...] nodules noted, which are overall grossly similar toprior CT dated 02/07/2017, and therefore likely benign. Severe emphysematous changes of lungs with scattered subsegmentalatelectasis and scarring. No definite evidence of new focal consolidation. Scattered bronchial wall thickening, which is likely related to chronic bronchitis/bronchiolitis. THIS IS AN ELECTRONICALLY VERIFIED FINAL REPORT 10/01/2024 12:41 PM - Electronically signed by Virginia Omalley D.O. PS: PS Report ID: [id number] Reading Location: [place] [address] Dusty Raza MD IMG CT PROCEDURES Final Result from Last 3 Months Insurance MEDICARE RAILROAD COMMERCIAL GENERIC MEDICARE RAILROAD [address] [address] MEDICARE [facility]ROAD [facility] Sub[facility] Plan / Payer (Ef fective 2019-Present) Name:Tanya Pa Relation to Subscriber:Self Name:Tanya Pa Payer ID:[id number] Group ID:Not on file Type:COMMERCIAL Address: [address] [place] [phone] Advance Directives For more information, please contact: [phone] * Full Code (Latest Code Status on File) Date Activated Date Inactivated Comments 02/02/2023 2:43 AM 02/03/2023 8:21 PM Care Teams Student Activities Director Relationship Specialty Start Date End Date Carlos Garcia MD [address] [facility] [address] [place] [address] PCP - General 02/02/16 Dusty Raza MD [facility] [address] [place] [address] Radiation Oncologist Radiation Oncology 12/11/23 Ramon Tolliver MD [address] [facility] [address] [place] [address] Referring Physician Thoracic Surgery 12/11/23
--- OUTSIDE RECORDS SUMMARY | 2024-11-18 10:55 | XMS_ITS ---
Author Organization [facility] Address [address], [place] [address] Care Team Providers Care X Ray Operator Name Role Phone Carlos Garcia MD Primary Care Provider Dusty Raza MD Unavailable [phone] Ramon Tolliver MD Unavailable Active Problems Problem Noted Date Diagnosed Date Other pneumothorax 02/02/2023 Chronic respiratory failure 02/02/2023 Bronchogenic lung cancer, right 02/02/2023 Lung nodule 08/08/2022 Persistent disorder of initiating or maintaining sleep 08/05/2019 Assessment & Plan (08/05/2019 11:57 AM CAMP BOSS): He will take trazodone 50 mg every night at bedtime. Asthma 03/19/2018 Overview (03/19/2018): Asthma; Comments: [facility] 08/01/2014 - Bronchiectasis 06/14/2017 Overview (06/14/2017): Bronchiectasis; Comments: [facility] 08/01/2014 - Body mass index 20-24 - normal 02/07/2017 Overview (02/10/2017): Body mass index (BMI) of 23.0 to 23.9 in adult Panlobular emphysema 02/02/2016 Overview (12/16/2016): Panlobular emphysema Assessment & Plan (08/05/2019 11:59 AM CAMP BOSS): He will continue with O2 at 4 [...] nightly. Assessment & Plan (08/09/2018 12:15 PM CAMP BOSS): He will take Spiriva 1 capsule inhaled [...] emphysema Assessment & Plan (08/05/2019 11:58 AM CAMP BOSS): He will continue with O2 at 4 [...] nightly. Assessment & Plan (08/09/2018 12:16 PM CAMP BOSS): He will continue with continuous oxygen 5 [...] lung Assessment & Plan (08/05/2019 11:58 AM CAMP BOSS): He will get a follow-up CT scan of the chest without contrast to follow up on nodules this will be a 1 year follow-up Assessment & Plan (02/07/2019 12:09 PM CDT): Patient had repeat CT scan continues to show multiple pulmonary nodules unchanged. He will have a repeat CT of the chest without contrast in 1 year. Assessment & Plan (08/09/2018 12:16 PM CAMP BOSS): He will have a follow-up CT of [...] apnea Assessment & Plan (08/05/2019 11:59 AM CAMP BOSS): He will continue with O2 at 4 [...] oxygen. Assessment & Plan (08/09/2018 12:15 PM CAMP BOSS): He was refit and given an air [...] disease) Assessment & Plan (08/05/2019 11:58 AM CAMP BOSS): He will continue with O2 at 4 [...] daily, and Spiriva Handihaler. COVID-19 virus infection Current Treatment and Therapy Plans No current plan information found. Past Treatment and Therapy Plans No past plan information found. Radiation Treatments * Course [id number] 09/07/2022 - 09/19/2022 Treatment Period Energy Fraction Dose Fractions Total Dose Plans Planned RIGHT LUNG 09/07/2022 - 09/19/2022 1,100 5 / 5,500 Reference Points Delivered [id number] 09/07/2022 - 09/19/2022 5,500 Lifetime Dose Tracking * Chemical Lifetime Dose Automatic Entry Manual Entr y DLP 1,387 mGycm 1,387 mGycm 0 mGycm
[2024-11-18 11:12] LABS: Free T4 Free Thyroxine 1.16 ng/dL (0.78-2.19); Vitamin D 25 Hydroxy 40.2 ng/mL
[2024-11-18 12:24] LABS: Hemoglobin A1C 5.8 % (<5.7)
== END 2024-11-18 09:36 | disposition home or self-care (01) ==
LOC: ANHLAB 09:38
PROVIDERS: PCP Internal Medicine; Visit Provider Internal Medicine
DX: E53.9 Vitamin B deficiency, unspecified (principal); E78.5 Hyperlipidemia, unspecified; R73.03 Prediabetes; Z13.29 Encounter for screening for other suspected endocrine disorder; Z79.899 Other long term (current) drug therapy
CPT/HCPCS: 36415; 80053; 80061; 82306; 83036; 84439; 84443; 85025

== ENCOUNTER 2025-05-21 11:47 | Outpatient (CLI) | payer MEDICARE, SELFPAY ==
[2025-05-21 12:45] LABS: Alanine Aminotransferase 17 U/L (6-50); Albumin Level 4.2 g/dL (3.5-5.1); Alkaline Phosphatase 95 U/L (38-126); Anion Gap 7 mmol/L (4-12); Aspartate Amino Transferase 28 U/L (17-59); Bilirubin,Total 0.6 mg/dL (0.2-1.3); Blood Urea Nitrogen 16 mg/dL (9-20); Calcium 8.8 mg/dL (8.4-10.2); Carbon Dioxide 28 mmol/L (22-30); Chloride 103 mmol/L (98-107); Cholesterol 140 mg/dL (0-200); Estimated Glomerular Filt Rate > 60; Glucose 98 mg/dL (65-110); HDL Direct 40 mg/dL; Potassium 4.4 mmol/L (3.4-5.0); Sodium 138 mmol/L (137-145); Total Protein 7.7 g/dL (6.3-8.2); Triglycerides 67 mg/dL (<150)
--- OUTSIDE RECORDS SUMMARY | 2025-05-21 12:52 | XMS_ITS | Clinical Summary ---
Author Organization [facility] Address [address] [place] [address] Care Team Providers Care Adjunct Professor Of English Name Role Phone Carlos Garcia MD Primary Care Provider [phone] uDsty Raza MD Unavailable [phone] Ramon Tolliver MD Unavailable [phone] Allergies No known active allergies Medications cyanocobalamin [...] 30 each 11 5 10/10/19 26 Active ezetimibe (ZETIA) 10 mg tablet Take 0.5 tablets (5 mg total) by mouth daily 5 Active Active Problems Problem Noted Date Diagnosed Date Other pneumothorax 02/02/2023 Chronic respiratory failure 02/02/2023 Bronchogenic lung cancer, 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 Asthma 03/19/2018 Overview (03/19/2018): Asthma; Comments: [facility] 08/01/2014 - Bronchiectasis 06/14/2017 Overview (06/14/2017): Bronchiectasis; Comments: [facility] 08/01/2014 - Body mass index 20-24 - normal 02/07/2017 Overview (02/10/2017): Body mass index (BMI) of 23.0 to 23.9 in adult Panlobular emphysema 02/02/2016 Overview (12/16/2016): Panlobular emphysema Assessment & Plan (08/05/2019 11:59 AM BATH MIXER): He will continue with O2 at 4 [...] nightly. Assessment & Plan (08/09/2018 12:15 PM BATH MIXER): He will take Spiriva 1 capsule inhaled [...] emphysema Assessment & Plan (08/05/2019 11:58 AM BATH MIXER): He will continue with O2 at 4 [...] nightly. Assessment & Plan (08/09/2018 12:16 PM BATH MIXER): He will continue with continuous oxygen 5 [...] lung Assessment & Plan (08/05/2019 11:58 AM BATH MIXER): He will get a follow-up CT scan of the chest without contrast to follow up on nodules this will be a 1 year follow-up Assessment & Plan (02/07/2019 12:09 PM CDT): Patient had repeat CT scan continues to show multiple pulmonary nodules unchanged. He will have a repeat CT of the chest without contrast in 1 year. Assessment & Plan (08/09/2018 12:16 PM BATH MIXER): He will have a follow-up CT of [...] apnea Assessment & Plan (08/05/2019 11:59 AM BATH MIXER): He will continue with O2 at 4 [...] oxygen. Assessment & Plan (08/09/2018 12:15 PM BATH MIXER): He was refit and given an air [...] disease) Assessment & Plan (08/05/2019 11:58 AM BATH MIXER): He will continue with O2 at 4 [...] Encounters Date Type Department Care Team Description 04/28/2025 10:30 AM CDT Office Visit [facility] Medical Office Building 2 Radiation Oncology [address] [place] [address] Dusty Raza MD Lung nodule (Primary Dx) 04/08/2025 11:07 AM CDT - 04/08/2025 11:59 PM CDT Hospital Encounter [facility] Medical Office Building [address] [facility] [place] [address] Lung nodule Discharge Disposition: Discharge to home or self care 03/11/2025 Telephone [facility] Medical Office Building 2 Radiation Oncology [address] [place] [address] Sima Rodríguez from Last 3 Months Surgical History Surgery Date Site/Laterality Comments COLONOSCOPY CATARACT EXTRACTION, BILATERAL SKIN CANCER EXCISION Malignant tumor ULNAR NERVE REPAIR Bilateral August 2023, September 2023 Medical History Medical History Date Comments Asthma Asthma; Comments : [facility] 08/01/2014 - Bronchiectasis Bronchiectasis; Comments: [facility] 08/01/2014 - Pulmonary emphysema (HCC) Emphys kala Chronic obstructive pulmonar y disease (HCC) COPD Gastroesophageal reflux disease GERD; Comments: [facility] 08/01/2014 - Peptic ulcer Peptic ulcer dis ease; Comments: [facility] 08/01/2014 - Pertussis Pertussis; Comme nts: [facility] 08/01/2014 - Shortness of breath Dyspnea; Com ments: [facility] 08/01/2014 - Hypertension Hypertension Tuberculoma Tuberculosis Hx Other Medical Abnormal CT sca n of lung; Comments: [facility] 01/30/2017 - Bronchogenic lung cancer, right (HCC) 07/20/2022 treated with radiation Chronic respiratory failure 01/12/2021 uses 4L NC at home Hyperglycemia [...] oz pur e alcohol) Social Connection and Isolation Panel Answer Date Recorded In a typical week, how many times do you talk on the phone with family, friends, or neighbors? More than three times a week 02/02/2023 How often do you get togethe r with friends or relatives? More than three times a week 02/02/2023 How often do you attend [facility] or taoist services? Never 02/02/2023 Do you belong to any clubs o r organizations such as denominational groups, unions, fraternal or athletic groups, or [...] place to sleep or slept in a chcf (including now)? No 02/02/2023 Personal Safety Answer Date Recorded Have you ever been in or are you currently in a harmful physical or emotional relationship or is someone making you feel afraid or unsafe? Denies 02/02/2023 Sex and Gender Information Value Date Recorded Sex Assigned at Not on file Legal Sex Male 8:31 PM BATH MIXER Gender Identity Not on file Sexual Orientation Not on file Obstetrics History Last Filed Vital Signs Vital Sign Reading Time Taken Comments Blood Pressure 122/62 04/28/2025 10:15 AM CDT Pulse 76 04/28/2025 10:15 AM CDT Temperature 36.7 C (98 F) 10/10/2024 1:41 PM BATH MIXER Respiratory Rate 20 10/10/2024 1:41 PM BATH MIXER Oxygen Saturation 94% 04/28/2025 10:15 AM CDT Inhaled Oxygen Concentration - - Weight 76.7 kg (169 lb) 04/28/2025 10:15 AM CDT Height 174 cm (5' 8.5) 10/10/2024 1:41 PM BATH MIXER Body Mass Index 25.32 10/10/2024 1:41 PM BATH MIXER Plan of Treatment Health Maintenance Due Date Last Done Comments Depression Screening 1935 DTaP/Tdap/Td Vaccine (1 - Tdap) 1948 Hepatitis B Screening 11/19/1955 Zoster Vaccine (1 of 2) 11/19/1987 Well Visit 65+ 2002 Fall Risk Assessment 02/04/2024 02/03/2023 Influenza Vaccine (#1) 2025 9, 05/14/2018, 05/16/2017, Additional history exists Pneumococcal vaccine 65+ Completed 06/18/2015, 07/12 Procedures Procedure Name Priority Date/Time Associated Diagnosis Comments CT CHEST WO CONTRAST Schedule Routine, Read Routine (OP Routine) 04/08/2025 11:13 AM CDT Lung nodule from Last 3 Months Results * CT Chest WO Contrast (04/08/2025 11:13 AM CDT) Anatomical Region Laterality Modality Body N/A Computed Tomogra phy 04/30/2025 10:0 6 AM CDT Narrative 04/30/2025 11:37 AM CDT EXAM DESCRIPTION: CT CHEST WO CONTRAST REASON FOR STUDY: Non-small cell lung cancer (NSCLC), monitor 6 month lung nodule/cancer f/u. No complaints. Radiographically diagnosed right upper lung cancer status post SBRT completed September 2022. TECHNIQUE: CT scan of the chest performed without intravenous contrast using helical scanning technique. Reconstructed coronal and sagittal MPR images reviewed. All images stored on PACS. Automated exposure control was used as a dose optimization technique for this examination. COMPARISON: 08/10/2022, 07/28/2022, 12/14/2022, 06/27/2024, 09/30/2024 REFERENCE: Per ACR white paper recommendations, unless otherwise specified no follow-up imaging is recommended for incidental renal and adrenal lesions per consensus recommendations based on imaging criteria. Further lab evaluation could be pursued based on clinical findings. FINDINGS: The sensitivity for detection of solid visceral lesions is diminished without the use of intravenous contrast. HARDWARE/LINES/TUBES: None. VASCULATURE: Multifocal atherosclerotic changes of the thoracic aorta and its major branches without aneurysm. MEDIASTINUM/HEART: Heart size within normal limits. Severe aortic valve calcification. Fluid within the esophagus above the chong concerning for gastroesophageal reflux. CORONARY ARTERY CALCIFICATION: Advanced multivessel atherosclerotic calcifications. LYMPH NODES: Partially calcified lymph nodes likely representing sequela of previous granulomatous disease. No pathologically enlarged lymphadenopathy. AIRWAY: Secretions/debris within the trachea and mild diffuse bronchial wall thickening which is nonspecific but can be seen with chronic bronchitis. LUNGS: Severe emphysematous changes. Similar-appearing linear bandlike opacity of the posterior right upper lobe at previously seen FDG avid mass with associated volume loss and architectural distortion consistent with post treatment change. Appearance is not significantly changed over multiple prior examinations. Similar-appearing linear scarring of the left upper lobe with adjacent calcified nodularity (such as 3; 79). Multiple pulmonary nodules including: Calcified pulmonary nodules which likely represent sequelae of prior granulomatous disease. Unchanged 4 mm lateral left upper lobe pulmonary nodule (3; 181). Unchanged 3 mm medial right upper lobe pulmonary nodule (3; 145). Perifissural ovoid 6 mm nodule along the right horizontal fissure likely reflects a fissural lymph node (3; 212). Unchanged triangular shaped 7 mm nodule in the central right upper lobe (3; 138). Unchanged 4 mm superior segment of the left lower lobe pulmonary nodule (3; 99). Unchanged 4 mm lateral left lower lobe pulmonary nodule (3; 265). No new suspicious pulmonary nodules. UPPER ABDOMEN: Cholelithiasis without evidence of acute cholecystitis. No definite acute abnormality within the visualized abdomen. BONES/SOFT TISSUES: Multilevel degenerative changes of the visualized spine. No aggressive appearing osseous lesions. No acute osseous abnormality. Normal-appearing thyroid. IMPRESSION: 1. Similar-appearing post treatment changes of the right upper lobe. 2. Unchanged multiple pulmonary nodules. No new suspicious pulmonary nodules. 3. Severe aortic valve calcification. Correlate with echocardiogram as clinically appropriate. 4. Fluid within the esophagus above the chong concerning for gastroesophageal reflux. 5. Additional incidental and chronic findings as above. THIS IS AN ELECTRONICALLY VERIFIED FINAL REPORT 04/30/2025 11:37 AM - Electronically signed by Lonny Bermudez M.D. NS: ALMA Report ID: [id number] Reading Location: [id number] Procedure Note Lonny Bermudez MD - 04/30/2025 EXAM DESCRIPTION: CT CHEST WO CONTRAST REASON FOR STUDY: Non-small cell lung cancer (NSCLC), monitor 6 month lung nodule/cancer f/u. No complaints. Radiographicallydiagnosed right upper lung cancer status post SBRT completed September 2022. TECHNIQUE: CT scan of the chest performed without intravenous contrastusing helical scanning technique. Reconstructed coronal and sagittal MPR images reviewed. All images stored on PACS. Automated exposure control was usedas a dose optimization technique for this examination. COMPARISON: 08/10/2022, 07/28/2022, 12/14/2022, 06/27/2024, 09/30/2024 REFERENCE: Per ACR white paper recommendations, unless otherwise specifiedno follow-up imaging is recommended for incidental renal and adrenal lesionsper consensus recommendations based on imaging criteria. Further labevaluation could be pursued based on clinical findings. FINDINGS: The sensitivity for detection of solid visceral lesions is diminished without the use of intravenous contrast. HARDWARE/LINES/TUBES: None. VASCULATURE: Multifocal atherosclerotic changes of the thoracic aorta andits major branches without aneurysm. MEDIASTINUM/HEART: Heart size within normal limits. Severe aortic valve calcification. Fluid within the esophagus above the chong concerning for gastroesophageal reflux. CORONARY ARTERY CALCIFICATION: Advanced multivessel atherosclerotic calcifications. LYMPH NODES: Partially calcified lymph nodes likely representing sequelaof previous granulomatous disease. No pathologically enlargedlymphadenopathy. AIRWAY: Secretions/debris within the trachea and mild diffuse bronchialwall thickening which is nonspecific but can be seen with chronic bronchitis. LUNGS: Severe emphysematous changes. Similar-appearing linear bandlike opacity of the posterior right upper lobe at previously seen FDG avid mass with associated volume loss and architectural distortion consistent withpost treatment change. Appearance is not significantly changed over multipleprior examinations. Similar-appearing linear scarring of the left upper lobe with adjacent calcified nodularity (such as 3; 79). Multiple pulmonary nodules including: Calcified pulmonary nodules whichlikely represent sequelae of prior granulomatous disease. Unchanged 4 mm lateral left upper lobe pulmonary nodule (3; 181). Unchanged 3 mm medial right upper lobe pulmonary nodule (3; 145). Perifissural ovoid 6 mm nodule along the right horizontal fissure likely reflects a fissural lymph node (3; 212). Unchanged triangular shaped 7 mm nodule in the central right upper lobe(3; 138). Unchanged 4 mm superior segment of the left lower lobe pulmonary nodule(3; 99). Unchanged 4 mm lateral left lower lobe pulmonary nodule (3; 265). No new suspicious pulmonary nodules. UPPER ABDOMEN: Cholelithiasis without evidence of acute cholecystitis.No definite acute abnormality within the visualized abdomen. BONES/SOFT TISSUES: Multilevel degenerative changes of the visualizedspine. No aggressive appearing osseous lesions. No acute osseous abnormality. Normal-appearing thyroid. IMPRESSION: 1. Similar-appearing post treatment changes of the right upper lobe. 2. Unchanged multiple pulmonary nodules. No new suspicious pulmonarynodules. 3. Severe aortic valve calcification. Correlate with echocardiogram as clinically appropriate. 4. Fluid within the esophagus above the chong concerning for gastroesophageal reflux. 5. Additional incidental and chronic findings as above. THIS IS AN ELECTRONICALLY VERIFIED FINAL REPORT 04/30/2025 11:37 AM - Electronically signed by Lonny Bermudez M.D. NS: NS Report ID: [id number] Reading Location: [place] [address] Dusty Raza MD IMG CT PROCEDURES Final Result from Last 3 Months Insurance MEDICARE [employer]RO[employer] MEDICARE RAILROAD [address] [facility] Advance Directives For more information, please contact: [phone] * Full Code (Latest Code Status on File) Date Activated Date Inactivated Comments 02/02/2023 2:43 AM 02/03/2023 8:21 PM Care Teams Adjunct Professor Of English Relationship Specialty Start Date End Date Carlos Garcia MD [address] [facility] [address] [place] [address] PCP - General 02/02/16 Dusty Raza MD [address] [place] [address] Radiation Oncologist Radiation Oncology 12/11/23 Ramon Tolliver MD [address] [address] Referring Physician Thoracic Surgery 12/11/23
--- OUTSIDE RECORDS SUMMARY | 2025-05-21 12:52 | XMS_ITS ---
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 Asthma 03/19/2018 Overview (03/19/2018): Asthma; Comments: [facility] 08/01/2014 - Bronchiectasis 06/14/2017 Overview (06/14/2017): Bronchiectasis; Comments: [facility] 08/01/2014 - Body mass index 20-24 - normal 02/07/2017 Overview (02/10/2017): Body mass index (BMI) of 23.0 to 23.9 in adult Panlobular emphysema 02/02/2016 Overview (12/16/2016): Panlobular emphysema Assessment & Plan (08/05/2019 11:59 AM EXPLOSIVE OPERATOR FUSE): He will continue with O2 at 4 [...] nightly. Assessment & Plan (08/09/2018 12:15 PM EXPLOSIVE OPERATOR FUSE): He will take Spiriva 1 capsule inhaled [...] emphysema Assessment & Plan (08/05/2019 11:58 AM EXPLOSIVE OPERATOR FUSE): He will continue with O2 at 4 [...] nightly. Assessment & Plan (08/09/2018 12:16 PM EXPLOSIVE OPERATOR FUSE): He will continue with continuous oxygen 5 [...] lung Assessment & Plan (08/05/2019 11:58 AM EXPLOSIVE OPERATOR FUSE): He will get a follow-up CT scan of the chest without contrast to follow up on nodules this will be a 1 year follow-up Assessment & Plan (02/07/2019 12:09 PM CDT): Patient had repeat CT scan continues to show multiple pulmonary nodules unchanged. He will have a repeat CT of the chest without contrast in 1 year. Assessment & Plan (08/09/2018 12:16 PM EXPLOSIVE OPERATOR FUSE): He will have a follow-up CT of [...] apnea Assessment & Plan (08/05/2019 11:59 AM EXPLOSIVE OPERATOR FUSE): He will continue with O2 at 4 [...] oxygen. Assessment & Plan (08/09/2018 12:15 PM EXPLOSIVE OPERATOR FUSE): He was refit and given an air [...] disease) Assessment & Plan (08/05/2019 11:58 AM EXPLOSIVE OPERATOR FUSE): He will continue with O2 at 4 [...]
--- OUTSIDE RECORDS SUMMARY | 2025-05-21 12:53 | XMS_ITS | Encounter Summary ---
Author Organization [facility] Healthcare Address [address] [place] [address] Care Team Providers Care Hardboard Factory Worker Name Role Phone Carlos Garcia MD Primary Care Provider [phone] Dusty Raza MD Unavailable [phone] Dusty Raza MD Unavailable [phone] Ramon Tolliver MD Unavailable [phone] Encounter Details Date Type Department Care Team (Late st Contact Info) Description 02/20/2020 Telephone [facility] Imaging [address] [place] [address] Jarrell Jolley, RT Social History Tobacco Use Types Packs/Day Years Used Date Smoking Tobacco: Former Alcohol Use Standard Drinks/Week Comments No 0 (1 standard drink = 0.6 oz pur e alcohol) Sex and Gender Information Value Date Recorded Sex Assigned at Not on file Legal Sex Male 8:31 PM BUSINESS RULES DEVELOPER Gender Identity Not on file Sexual Orientation [...] documented as of this encounter Care Teams Hardboard Factory Worker Relationship Specialty Start Date End Date Carlos Garcia MD [address] [facility] [address] [place] [address] PCP - General 02/02/16 Dusty Raza MD [address] [facility] [address] [place] [address] Radiation Oncologist Radiation Oncology 08/29/22 Dusty Raza MD [address] [place] [address] Radiation Oncologist Radiation Oncology 12/11/23 Ramon Tolliver MD [address] [address] Referring Physician Thoracic Surgery 12/11/23 documented as of this encounter
[2025-05-21 13:55] LABS: Vitamin B12 593.0 pg/mL (239-931)
== END 2025-05-21 11:48 | disposition home or self-care (01) ==
PROVIDERS: PCP Internal Medicine; Visit Provider Internal Medicine
DX: R79.89 Other specified abnormal findings of blood chemistry (principal); Z79.899 Other long term (current) drug therapy; E78.2 Mixed hyperlipidemia
CPT/HCPCS: 36415; 80053; 80061; 82607; 82746

== ENCOUNTER 2025-06-03 12:03 | Emergency (ER) | payer MEDICARE, SELFPAY ==
[2025-06-03] VITALS (19 sets, daily range): BP systolic 92–130; BP diastolic 50–82; PULSE 83–96; RESP 14–37; TEMP 36.8; O2SAT 95–97
--- NOTE | 2025-06-03 | ECHO_ITS ---
Patient Info Name: Jarrell Stephens Age: 89 years : 1935 Gender: Male Ht: 68 in Wt: 167 lbs BSA: 1.92 m2 HR: 93 bpm BP: 112 / 64 mmHg Heart Rhythm: Sinus Rhythm Technical Quality: Fair Exam Date: 06/03/2025 2:03 PM Patient Status: E Admit Date: 06/03/2025 Exam Type: CA echo limited w contrast Limited two-dimensional transthoracic echocardiogram is performed with contrast. Staff Referring Physician: Alfie Steele Vascular Technician: Yunior Mcmanus III Attending Provider: Alfie Steele Contrast/Agitated Saline Contrast/Ag. Saline: Definity Amount: 2.00 ml Administered By: Yunior Mcmanus III Existing IV Access: Yes IV Access Condition: patent with no signs of infiltration Summary 1. Limited echo performed with definity contrast. 2. Normal left ventricular size and systolic function. 3. Mild right ventricular enlargement with good systolic function. 4. Mild aortic valve sclerosis. 5. No pericardial effusion. Left Ventricle Left ventricular chamber dimension is normal. Left ventricular systolic function is normal, estimated at 60-65. Right Ventricle Right ventricular chamber dimension is mildly enlarged. Right ventricular systolic function is normal. Left Atria Left atrial chamber dimension is normal. Right Atria Right atrial chamber dimension is normal. Aortic Valve The aortic valve is trileaflet. There is mild aortic valve sclerosis. Pulmonic Valve The pulmonic valve is not well visualized. Mitral Valve The mitral valve has normal leaflets. Tricuspid Valve The tricuspid valve leaflets are normal. Pericardium/Pleural The pericardium appears normal. There is no pericardial effusion. Aorta The aortic root size at the sinus of Valsalva is normal. Report Signatures
--- NOTE | ~2025-06-03 | XR_ITS ---
EXAMINATION: XR chest 1V portable 06/03/2025 13:13 INDICATION: Chest pain TECHNIQUE:A single portable AP upright frontal image of the chest was obtained. COMPARISON: 04/18/2022 FINDINGS: Heart is mildly enlarged. No pneumothorax. No pleural effusion. There is moderate emphysema. No free air under the diaphragm. There are a few reticular and bandlike opacities scattered throughout both lungs similar to the prior study likely atelectasis and scarring. New small to moderate-sized patchy opacities in the lower lungs. IMPRESSION: 1: New small to moderate-sized patchy opacities in the lower lungs. Differential includes atelectasis or infiltrates. Follow-up is recommended. 2. Emphysema. Reviewed, dictated and finalized at location Q. IMPRESSION: 1: New small to moderate-sized patchy opacities in the lower lungs. Differenti al includes atelectasis or infiltrates. Follow-up is recommended. 2. Emphysema.
--- NOTE | 2025-06-03 12:04 | ECG_ITS ---
Test Date: 2025-06-03 12:07:03 Measurements Intervals [place] Rate: 96 P: 40 NM: 164 QRS: 57 QRSD: 101 T: 66 QT: 365 QTc: 461 Interpretive Statements SINUS RHYTHM WITH OCCASIONAL SUPRAVENTRICULAR PREMATURE COMPLEXES ST ELEVATION CONSISTENT WITH INJURY, PERICARDITIS, OR EARLY REPOLARIZATION [ST BORDERLINE ECG WARNING: DATA QUALITY MAY AFFECT INTERPRETATION No previous ECG available for comparison Electronically Signed On 06-03-2025 12:40:25 CDT by Ranjith Emerson M.D.
--- OUTSIDE RECORDS SUMMARY | 2025-06-03 12:29 | XMS_ITS | Clinical Summary ---
Author Organization [facility] Address [address] [address] Care Team Providers Care Grievance And Appeals Specialist Name Role Phone Carlos Garcia MD Primary Care Provider [phone] Dusty Raza MD Unavailable [phone] Ramon Tolliver MD Unavailable [phone] Allergies No known active allergies Medications cyanocobalamin (Vitamin B-12) 1,000 mcg tabletIndicatio ns:Prevention of Vitamin B12 Deficiency Take 1 tablet [...] HFA (PROVENTIL HFA,VENTOLIN HFA,PROAIR HFA) 90 mcg/actuation inhalerIndicati ons:Asthma, unspecified asthma severity, unspecified whether complicated, unspecified whether persistent INHALE 2 PUFFS BY MOUTH EVERY 4 TO 6 HOURS NEEDED FOR SHORTNESS OF BREATH OR WHEEZING 9 g 3 4 Active ezetimibe (ZETIA) 10 mg tablet Take 0.5 tablets (5 mg total) by mouth daily 5 Active montelukast (SINGULAIR) 10 mg tablet TAKE 1 TABLET BY MOUTH NIGHTLY AT BEDTIME 90 tablet 3 5 Active Trelegy Ellipta 200-62.5-25 mcg inhaler Inhale 1 puff daily 30 each 5 05/29/20 26 Active montelukast (SINGULAIR) 10 mg tablet TAKE 1 TABLET BY MOUTH NIGHTLY AT BEDTIME 90 tablet 3 5 05/29/20 25 Discontinu ed(Reorder ) Trelegy Ellipta 200-62.5-25 mcg inhaler Inhale 1 puff daily 30 each 5 05/29/20 Discontinu ed(Reorder ) Active Problems Problem Noted Date Diagnosed Date Hearing loss 05/29/2025 Other pneumothorax 02/02/2023 Chronic respiratory failure 02/02/2023 Bronchogenic lung cancer, right 02/02/2023 Lung nodule 08/08/2022 Persistent disorder of initiating or maintaining sleep 08/05/2019 Assessment & Plan (08/05/2019 11:57 AM VP PACKAGING): He will take trazodone 50 mg every night at bedtime. Asthma 03/19/2018 Overview (03/19/2018): Asthma; Comments: AKV 08/01/2014 - Bronchiectasis 06/14/2017 Overview (06/14/2017): Bronchiectasis; Comments: AKV 08/01/2014 - Body mass index 20-24 - normal 02/07/2017 Overview (02/10/2017): Body mass index (BMI) of 23.0 to 23.9 in adult Panlobular emphysema 02/02/2016 Overview (12/16/2016): Panlobular emphysema Assessment & Plan (08/05/2019 11:59 AM VP PACKAGING): He will continue with O2 at 4 [...] nightly. Assessment & Plan (08/09/2018 12:15 PM VP PACKAGING): He will take Spiriva 1 capsule inhaled [...] emphysema Assessment & Plan (08/05/2019 11:58 AM VP PACKAGING): He will continue with O2 at 4 [...] nightly. Assessment & Plan (08/09/2018 12:16 PM VP PACKAGING): He will continue with continuous oxygen 5 [...] lung Assessment & Plan (08/05/2019 11:58 AM VP PACKAGING): He will get a follow-up CT scan of the chest without contrast to follow up on nodules this will be a 1 year follow-up Assessment & Plan (02/07/2019 12:09 PM CDT): Patient had repeat CT scan continues to show multiple pulmonary nodules unchanged. He will have a repeat CT of the chest without contrast in 1 year. Assessment & Plan (08/09/2018 12:16 PM VP PACKAGING): He will have a follow-up CT of [...] apnea Assessment & Plan (08/05/2019 11:59 AM VP PACKAGING): He will continue with O2 at 4 [...] oxygen. Assessment & Plan (08/09/2018 12:15 PM VP PACKAGING): He was refit and given an air [...] disease) Assessment & Plan (08/05/2019 11:58 AM VP PACKAGING): He will continue with O2 at 4 [...] Encounters Date Type Department Care Team Description 05/29/2025 1:00 PM CDT Office Visit [facility] [address] [place] [address] [address] [place] [address] Karrie James NP Obstructive sleep apnea syndrome (Primary Dx); Persistent disorder of initiating or maintaining sleep; Panlobular emphysema (HCC); Hypoxemia 04/28/2025 10:30 AM CDT Office Visit [facility] 2 Radiation Oncology [facility] [place] [address] Dusty Raza MD Lung nodule (Primary Dx) 04/08/2025 11:07 AM CDT - 04/08/2025 11:59 PM CDT Hospital Encounter [facility] [address] [place] [address] Lung nodule Discharge Disposition: Discharge to home or self care 03/11/2025 Telephone [facility] 2 Radiation Oncology [address] [place] [id number] Sima Rodríguez from Last 3 Months Surgical History Surgery Date Site/Laterality Comments COLONOSCOPY CATARACT EXTRACTION, BILATERAL SKIN CANCER EXCISION Malignant tumor ULNAR NERVE REPAIR Bilateral August 2023, September 2023 Medical History Medical History Date Comments Asthma Asthma; Comments : [facility] 08/01/2014 - Bronchiectasis Bronchiectasis; Comments: [facility] 08/01/2014 - Pulmonary emphysema (HCC) Emphys kala Chronic obstructive pulmonar y disease (HCC) COPD Gastroesophageal reflux disease GERD; Comments: [facility] 08/01/2014 - Peptic ulcer Peptic ulcer dis ease; Comments: [facility] 08/01/2014 - Pertussis Pertussis; Comme nts: [facility] 08/01/2014 - Shortness of breath Dyspnea; Com ments: [facility] 08/01/2014 - Hypertension Hypertension Tuberculoma [...] often do you attend chur ch or hinduism services? Never 02/02/2023 Do you belong to any clubs o r organizations such as spiritism groups, unions, fraternal or athletic groups, or [...] place to sleep or slept in a assisted (including now)? No 02/02/2023 Personal Safety Answer Date Recorded Have you ever been in or are you currently in a harmful physical or emotional relationship or is someone making you feel afraid or unsafe? Denies 02/02/2023 Sex and Gender Information Value Date Recorded Sex Assigned at Not on file Legal Sex Male 8:31 PM VP PACKAGING Gender Identity Not on file Sexual Orientation Not on file Obstetrics History Last Filed Vital Signs Vital Sign Reading Time Taken Comments Blood Pressure 124/60 05/29/2025 1:08 PM CDT Pulse 83 05/29/2025 1:08 PM CDT Temperature 36.8 C (98.3 F) 05/29/2025 1:08 PM CDT Respiratory Rate 18 05/29/2025 1:08 PM CDT Oxygen Saturation 96% 05/29/2025 1:08 PM CDT 4 l/m,th Inhaled Oxygen Concentration - - Weight 75 kg (165 lb 6.4 oz) 05/29/2025 1:08 PM CDT Height 174 cm (5' 8.5) 05/29/2025 1:08 PM CDT Body Mass Index 24.78 05/29/2025 1:08 PM CDT Plan of Treatment Health Maintenance Due Date Last Done Comments Depression Screening 1935 DTaP/Tdap/Td Vaccine (1 - Tdap) 1948 Hepatitis B Screening 11/19/1955 Zoster Vaccine (1 of 2) 11/19/1987 Well Visit 65+ 2002 Fall Risk Assessment 02/04/2024 02/03/2023 Influenza Vaccine (#1) 2025 , 05/14/2019, 05/14/2018, Additional history exists Pneumococcal vaccine 65+ Completed [...] Lonny Bermudez M.D. NS: NS Report ID: [id number] Reading Location: [id number] Procedure Note Lonny Bermudez MD - 04/30/2025 [...] Lonny Bermudez M.D. NS: ALMA Report ID: [id number] Reading Location: [place] [address] Dusty Raza MD IMG CT PROCEDURES Final Result from Last 3 Months Insurance MEDICARE RAILROAD Member Subscriber Plan / Payer (Ef fective 2002-Present) Name:Tanya Pa Member ID:[id number] Relation to Subscriber:Self Name:Tanya Pa Subscriber ID:[id number] Payer ID:[id number] Group ID:Not on file Type:MEDICARE TRADITIONAL Address: [place] [id number] MEDICARE RAILROAD Member Subscriber Plan / Payer (Ef fective 2002-Present) Name:Tanya Pa Member ID:[id number] Relation to Subscriber:Self Name:Tanya Pa Subscriber ID:[id number] Payer ID:[id number] Group ID:Not on file Type:MEDICARE TRADITIONAL Address: [address] [place] [address] Advance Directives For more information, please contact: [phone] * Full Code (Latest Code Status on File) Date Activated Date Inactivated Comments 02/02/2023 2:43 AM 02/03/2023 8:21 PM Care Teams Grievance And Appeals Specialist Relationship Specialty Start Date End Date Carlos Garcia MD [address] [facility] [address] [facility] [address] [place] [address] PCP - General 02/02/16 Dusty Raza MD [address] [place] [address] Radiation Oncologist Radiation Oncology 12/11/23 Ramon Tolliver MD [address] [address] Referring Physician Thoracic Surgery 12/11/23
--- OUTSIDE RECORDS SUMMARY | 2025-06-03 12:29 | XMS_ITS | Encounter Summary ---
Author Organization [facility] Healthcare Address [address] [place] [address] Care Team Providers Care Drain Cleaner Name Role Phone Carlos Garcia MD Primary Care Provider [phone] Dusty Raza MD Unavailable [phone] Dusty Raza MD Unavailable [phone] Ramon Tolliver MD Unavailable [phone] Encounter Details Date Type Department Care Team (Late st Contact Info) Description 02/20/2020 Telephone [facility] [address] [place] [address] Jarrell Jolley, RT Social History Tobacco Use Types Packs/Day Years Used Date Smoking Tobacco: Former Alcohol Use Standard Drinks/Week Comments No 0 (1 standard drink = 0.6 oz pur e alcohol) Sex and Gender Information Value Date Recorded Sex Assigned at Not on file Legal Sex Male 8:31 PM INTRANET SPECIALIST Gender Identity Not on file Sexual Orientation [...] documented as of this encounter Care Teams Drain Cleaner Relationship Specialty Start Date End Date Carlos Garcia MD [address] [facility] [address] [place] [address] PCP - General 02/02/16 Dusty Raza MD [address] [facility] [address] [place] [address] Radiation Oncologist Radiation Oncology 08/29/22 Dusty Raza MD [address] [place] [address] Radiation Oncologist Radiation Oncology 12/11/23 Ramon Tolliver MD [address] [address] Referring Physician Thoracic Surgery 12/11/23 documented as of this encounter
--- OUTSIDE RECORDS SUMMARY | 2025-06-03 12:29 | XMS_ITS ---
Author Organization [facility] Address [address] [address] Care Team Providers Care Hospice Massage Therapist Name Role Phone Carlos Garcia MD Primary Care Provider [phone] Dusty Raza MD Unavailable [phone] Ramon Tolliver MD Unavailable Active Problems Problem Noted Date Diagnosed Date Hearing loss 05/29/2025 Other pneumothorax 02/02/2023 Chronic respiratory failure 02/02/2023 Bronchogenic lung cancer, right 02/02/2023 Lung nodule 08/08/2022 Persistent disorder of initiating or maintaining sleep 08/05/2019 Assessment & Plan (08/05/2019 11:57 AM METALLURGY LABORATORY TECHNICIAN): He will take trazodone 50 mg every night at bedtime. Asthma 03/19/2018 Overview (03/19/2018): Asthma; Comments: AKV 08/01/2014 - Bronchiectasis 06/14/2017 Overview (06/14/2017): Bronchiectasis; Comments: AKV 08/01/2014 - Body mass index 20-24 - normal 02/07/2017 Overview (02/10/2017): Body mass index (BMI) of 23.0 to 23.9 in adult Panlobular emphysema 02/02/2016 Overview (12/16/2016): Panlobular emphysema Assessment & Plan (08/05/2019 11:59 AM METALLURGY LABORATORY TECHNICIAN): He will continue with O2 at 4 [...] nightly. Assessment & Plan (08/09/2018 12:15 PM METALLURGY LABORATORY TECHNICIAN): He will take Spiriva 1 capsule inhaled [...] emphysema Assessment & Plan (08/05/2019 11:58 AM METALLURGY LABORATORY TECHNICIAN): He will continue with O2 at 4 [...] nightly. Assessment & Plan (08/09/2018 12:16 PM METALLURGY LABORATORY TECHNICIAN): He will continue with continuous oxygen 5 [...] lung Assessment & Plan (08/05/2019 11:58 AM METALLURGY LABORATORY TECHNICIAN): He will get a follow-up CT scan of the chest without contrast to follow up on nodules this will be a 1 year follow-up Assessment & Plan (02/07/2019 12:09 PM CDT): Patient had repeat CT scan continues to show multiple pulmonary nodules unchanged. He will have a repeat CT of the chest without contrast in 1 year. Assessment & Plan (08/09/2018 12:16 PM METALLURGY LABORATORY TECHNICIAN): He will have a follow-up CT of [...] apnea Assessment & Plan (08/05/2019 11:59 AM METALLURGY LABORATORY TECHNICIAN): He will continue with O2 at 4 [...] oxygen. Assessment & Plan (08/09/2018 12:15 PM METALLURGY LABORATORY TECHNICIAN): He was refit and given an air [...] disease) Assessment & Plan (08/05/2019 11:58 AM METALLURGY LABORATORY TECHNICIAN): He will continue with O2 at 4 [...]
--- NOTE | 2025-06-03 12:34 | ED.CHESTPAIN ---
HPI - Chest Pain General Chief Complaint: Chest Pain Stated Complaint: abnormal EKG, SOB Time Seen by Provider: 06/03/25 12:33 History of Present Illness HPI narrative: This is an 89-year-old male with history of COPD who presents to the ED for chest pain. Patient states that he was at a family yesterday and was walking around and talking to friends and family when he had onset of substernal chest pain that did not radiate. Pain is better when lying back but worse when leaning forward. He went to his PCP this morning and was given a prescription for Tylenol and his pain has since resolved without the use of medications. Advised to come to the ED for further evaluation given his chest pain and a possibly abnormal EKG. Patient reports that he feels like his normal self this time. He has no prior cardiac history. He does know recent sinus congestion. Related Data Home Medications ?Medication ?Instructions ?Recorded ?Confirmed ?Last Taken ?Type montelukast 10 mg tablet 10 mg PO HS 07/26/19 03/19/25 Unknown History MaxFe (folate) 400 mg PO DAILY 07/14/22 03/19/25 Unknown History guaifenesin 400 mg tablet (Mucus 1,200 mg PO DAILY PRN Congestion 07/14/22 03/19/25 Unknown History Relief) mecobalamin (vitamin B12) 1,000 1,000 mcg PO DAILY 07/14/22 03/19/25 Unknown History mcg chewable tablet Allergies Allergy/AdvReac Type Severity Reaction Status Date / Time No Known Allergies Allergy Verified 06/03/25 11:17 Review of Systems Review of Systems: Gen.: Denies fevers or chills Eyes: Denies eye pain or visual change ENT: Denies congestion Respiratory: Denies shortness of breath or cough CV: Denies chest pain or palpitations GI: Denies abdominal pain nausea, emesis or diarrhea denies burning, urgency, frequency or hematuria Musculoskeletal: Denies back pain or muscle pain Neuro: Denies numbness, tingling, weakness or focal weakness Skin: Denies rash Except as documented, all other systems reviewed and negative PMF Past Medical History Medical History Pleuritic pain Encounter for routine adult health examination with abnormal findings Weakness of upper extremity Costochondritis Constipation BMI 22.0-22.9, adult BMI 24.0-24.9, adult Former smoker Chronic respiratory failure with hypoxia Tuberculosis (1978) Asbestosis Vaccine for tetanus toxoid Squamous cell carcinoma of skin of left cheek Skin neoplasm Lung nodule BMI 25.0-25.9,adult Hyperlipidemia Hearing loss Pre-diabetes Surgical History Surgical History Status post surgical removal of malignant neoplasm of skin History of bilateral cataract extraction History of meniscectomy of right knee History of colonoscopy with polypectomy Family History Family History Mother Patient's mother is Social History Social History Social History: Surrogate medical decision maker: Code status: Full code. Smoking packs per day: 1.5 Smoking cigarettes per day: 30.0 Years smoked: 20 Smoking pack-years: 30.00 Smoking status: Former smoker Tobacco type: cigarettes Second hand tobacco smoke exposure: No Smoking end date: 09/11/78 Alcohol intake: never Substance use: never Substance use type: does not use Lack of Transportation: No Lack of Food: Never True Current Housing: I Have Housing Concerned About Future Housing: No Difficulty Paying Gas/Electric Bills: No Difficulty Paying for Meds: No Currently Unemployed: No Education: High School Diploma/GED Difficulty w/ Childcare or Family Care: No Living arrangements: with family Occupation/Education: retired Gender identity (if verbalized by the patient): Male Spiritual care concerns: No Exam Narrative: APPEARANCE: No acute distress, nontoxic, resting in bed EYES: EOMI HEENT: Normocephalic, atraumatic, OMM RESPIRATORY: Diminished breath sounds throughout. On 4 L nasal cannula. CARDIOVASCULAR: Regular rate and rhythm without murmurs rubs or gallops. ABDOMINAL: Soft, nontender, nondistended, no rebound or guarding MUSCULOSKELETAl: Moves all extremities. No clubbing, cyanosis or edema. NEURO: Awake and alert. Following commands, speech normal, no focal deficits SKIN:: Warm, dry. No rashes lesions or abrasions PSYCHIATRIC: Normal affect/mood, Course Vital Signs Vital signs: Vital Signs Temperature 98.2 F 06/03/25 12:05 Pulse Rate 95 06/03/25 12:05 Respiratory Rate 18 06/03/25 12:05 Blood Pressure 130/55 L 06/03/25 12:05 Pulse Oximetry 96 06/03/25 12:05 Oxygen Delivery Nasal Cannula 06/03/25 12:05 Oxygen Flow Rate 4 06/03/25 12:05 Temperature 98.2 F 06/03/25 12:05 Pulse Rate 87 06/03/25 16:16 Respiratory Rate 27 H 06/03/25 16:16 Blood Pressure 117/66 06/03/25 16:16 Pulse Oximetry 97 06/03/25 16:16 Oxygen Delivery Nasal Cannula 06/03/25 12:25 Oxygen Flow Rate 4 06/03/25 12:29 MDM - Chest Pain MDM Narrative Medical decision making narrative: 89-year-old male who presents to the ED for chest pain. On initial evaluation, patient was in no acute distress, afebrile, hemodynamically stable. Initial EKG was obtained which did show some new ST elevations in inferior and lateral leads with no reciprocal changes. Patient was out having active chest pain at this time. Symptoms he was describing were more consistent with a pericarditis than it with a STEMI. Repeat EKG was obtained immediately to confirm and did continue to show the same changes. Bedside ultrasound was performed and showed a possible trace pericardial effusion which may be consistent with a pericarditis. I did discuss the case with Interventional Cardiology, Dr. Forrest, agrees that initial troponin should be obtained given no active chest pain and recommended a stat echo. Initial troponin was negative. He had a slight leukocytosis at 10.8. CMP was without significant abnormalities. BNP slightly elevated at 450. Repeat troponin was negative. Stat echo was obtained and showed no pericardial effusion or other significant abnormalities. Repeat EKG continues to show changes. I did reach out to Cardiology again, given that he is not having pain, just recommended 500 mg Tylenol t.i.d. and short-term follow-up. I discussed this with the patient who is agreeable to this plan. Given strict return precautions. Differential Diagnosis Differential diagnosis: Likely unstable angina pectoris, atypical chest pain, st elevation myocardial infarction, costochondritis and chest pain Medical Records Data Attestation: I reviewed the patient's medical records. Lab Data Attestation: I reviewed the patient's lab results. 06/03/25 12:38 06/03/25 12:38 Labs: Lab Results 06/03/25 06/03/25 Range/Units 12:38 15:32 WBC 10.8 H (4.5-10.0) K/mm3 RBC 4.82 (4.6-6.20) M/mm3 Hgb 14.3 (14.0-18.0) g/dL Hct 44.3 (42.0-52.0) % MCV 91.9 (80-100) fl MCH 29.7 (26-34) pg MCHC 32.3 (32-36) g/dl RDW 13.2 (11.5-14.5) % Plt Count 249 (150-375) k/mm3 MPV 9.4 (7.4-10.4) fl Immature Gran % (Auto) 0.4 (0-0.5) % Neut % (Auto) 73.9 H (45.5-73.1) % Lymph % (Auto) 12.4 L (18.3-44.2) % Robeson % (Auto) 12.5 H (2.6-8.5) % Eos % (Auto) 0.4 (0-4.4) % Baso % (Auto) 0.4 (0.2-1.2) % Lymph # (Auto) 1.34 (0.9-3.2) K/mm3 [place]eson # (Auto) 1.4 H (0.1-0.6) K/mm3 Eos # (Auto) 0.0 (0-0.3) K/mm3 Baso # (Auto) 0.0 (0.0-0.1) K/mm3 Abs Immat Gran (auto) 0.04 H (0.00-0.031) K/mm3 Absolute Neuts (auto) 8.0 H (1.3-6.7) K/mm3 Absolute Nucleated RBC 0.000 (0.0-0.012) K/mm3 Nucleated RBC % 0.0 (0.0-0.2) % Sodium 137 (137-145) mmol/L Potassium 3.8 (3.4-5.0) mmol/L Chloride 103 (98-107) mmol/L Carbon Dioxide 24 (22-30) mmol/L Anion Gap 10 (4-12) mmol/L BUN 16 (9-20) mg/dL Creatinine 0.87 (0.7-1.3) mg/dL Estim Creat Clear Calc 51 ml/min Estimated GFR > 60 (59 - ) Glucose 104 (65-110) mg/dL Calcium 8.6 (8.4-10.2) mg/dL Total Bilirubin 1.1 (0.2-1.3) mg/dL AST 24 (17-59) U/L ALT 16 (6-50) U/L Alkaline Phosphatase 91 (38-126) U/L Troponin I < 0.012 < 0.012 (0.000-0.034) ng/mL NT-Pro-B Natriuret Pep 450 H (19.9-100) pg/mL Total Protein 7.8 (6.3-8.2) g/dL Albumin 4.2 (3.5-5.1) g/dL Imaging Data Attestation: I personally reviewed and interpreted this imaging study as follows: (I reviewed the radiologist's interpretations) Radiologist's impression: Impressions Chest X-Ray 06/03/25 13:16 IMPRESSION: 1: New small to moderate-sized patchy opacities in the lower lungs. Differential includes atelectasis or infiltrates. Follow-up is recommended. 2. Emphysema. ECG Data EKG #1: Attestation: I personally reviewed and interpreted this ECG as follows: ECG completion date: 06/03/25 ECG completion time: 12:07 Interpretation: Normal sinus rhythm rate of 96, normal axis, normal intervals, minimal ST elevations in 2, 3, AVF, V4-V6. EKG #2: Attestation: I personally reviewed and interpreted this ECG as follows: ECG completion date: 06/03/25 ECG completion time: 12:17 Interpretation: Normal sinus rhythm rate of 94, normal axis normal intervals, minimal ST elevations in 2, 3, AVF and V4 through V6. EKG #3: Attestation: I personally reviewed and interpreted this ECG as follows: ECG completion date: 06/03/25 ECG completion time: 13:52 Interpretation: Normal sinus rhythm rate of 85, normal axis, normal intervals, no ST elevations in 2, 3, AVF, V4 through V6. No significant change from prior Discharge Plan Discharge Clinical Impression: Atypical chest pain Patient Disposition: Home Condition: Stable Instructions: Antibiotic Form, Chest Pain (ED) Additional Instructions: Take Tylenol 500 mg 3 times daily for the next 5 days. Follow up with Cardiology in the next week for re-evaluation. Return to the ED for any new or worsening symptoms. Patient Language: Lithuanian Prescriptions: No Action (DME) Home Nebulizer Machine and supplies See Rx Instructions .Route .MEDSUPPLY Qty: 1 0RF Rx Instructions: As directed ezetimibe [Zetia] 10 mg tablet 5 mg PO DAILY Qty: 45 1RF montelukast 10 mg tablet 10 mg PO HS guaifenesin [Mucus Relief] 400 mg Tablet 1,200 mg PO DAILY PRN (Reason: Congestion) mecobalamin (vitamin B12) 1,000 mcg Tablet,Chewable 1,000 mcg PO DAILY MaxFe (folate) 400 mg PO DAILY Trelegy Ellipta 200-62.5-25 mcg blister with device See Rx Instructions .ROUTE .COMPLEX Qty: 60 1RF Dose Instruction: INHALE 1 PUFF ONCE DAILY AND DISCONTINUE BREO/SPIRIVA Rx Instructions: INHALE 1 PUFF ONCE DAILY AND DISCONTINUE BREO/SPIRIVA atorvastatin 40 mg tablet See Rx Instructions .ROUTE .COMPLEX Qty: 90 1RF Dose Instruction: TAKE 1 TABLET BY MOUTH ONCE DAILY AND STOP TAKING THE 20 MG TABLETS Rx Instructions: TAKE 1 TABLET BY MOUTH ONCE DAILY AND STOP TAKING THE 20 MG TABLETS albuterol sulfate 2.5 mg /3 mL (0.083 %) solution for nebulization See Rx Instructions .ROUTE .COMPLEX Qty: 180 0RF Dose Instruction: USE 1 VIAL IN NEBULIZER EVERY 6 HOURS FOR COPD Rx Instructions: USE 1 VIAL IN NEBULIZER EVERY 6 HOURS FOR COPD Follow-up/Referrals: Carlos Garcia MD [Primary Care Provider, Internal Medicine] Aminata Forrest MD [Physician, Cardiology]
[2025-06-03 12:44] LABS: Hematocrit 44.3 % (42.0-52.0); Hemoglobin 14.3 g/dL (14.0-18.0); Immature Granulocyte Percent A 0.4 % (0-0.5); Lymphocytes Absolute Auto 1.34 K/mm3 (0.9-3.2); Mean Corpuscular HGB Conc 32.3 g/dl (32-36); Mean Corpuscular Hemoglobin 29.7 pg (26-34); Mean Corpuscular Volume 91.9 fl (80-100); Nucleated Red Blood Cells Absolute Auto 0.000 K/mm3 (0.0-0.012); Nucleated Red Blood Cells Perc 0.0 % (0.0-0.2); Platelet Count Result 249 k/mm3 (150-375); Red Blood Count 4.82 M/mm3 (4.6-6.20); White Blood Count 10.8 K/mm3 (4.5-10.0)
[2025-06-03] MEDS: ASPIRIN 81 MG CHEWABLE TABLET 324 MG PO (12:50)
[2025-06-03 13:03] LABS: Alanine Aminotransferase 16 U/L (6-50); Albumin Level 4.2 g/dL (3.5-5.1); Alkaline Phosphatase 91 U/L (38-126); Anion Gap 10 mmol/L (4-12); Aspartate Amino Transferase 24 U/L (17-59); Bilirubin,Total 1.1 mg/dL (0.2-1.3); Blood Urea Nitrogen 16 mg/dL (9-20); Calcium 8.6 mg/dL (8.4-10.2); Carbon Dioxide 24 mmol/L (22-30); Chloride 103 mmol/L (98-107); Estimated CRCL calculation 51 ml/min; Estimated Glomerular Filt Rate > 60; Glucose 104 mg/dL (65-110); Potassium 3.8 mmol/L (3.4-5.0); Sodium 137 mmol/L (137-145); Total Protein 7.8 g/dL (6.3-8.2)
[2025-06-03 13:11] LABS: NT Pro B Type Natriuretic Pept 450 pg/mL (19.9-100)
--- NOTE | 2025-06-03 13:37 | ECG_ITS ---
Test Date: 2025-06-03 12:17:33 Measurements Intervals [place] Rate: 94 P: 25 [place]: 163 QRS: 22 QRSD: 102 T: 61 QT: 368 QTc: 461 Interpretive Statements SINUS RHYTHM ST ELEVATION CONSISTENT WITH INJURY, PERICARDITIS, OR EARLY REPOLARIZATION [ST ELEVATION W/O NORMALLY INFLECTED T WAVE] NONSPECIFIC ST & T-WAVE ABNORMALITY Compared to ECG 06/03/2025 12:07:03 unchanged Electronically Signed On 06-03-2025 17:16:27 CDT by Anyi Ayala M.D.
--- NOTE | 2025-06-03 13:52 | ECG_ITS ---
Test Date: 2025-06-03 13:52:00 Measurements Intervals [place] Rate: 85 P: 24 [place]: 161 QRS: 17 QRSD: 103 T: 53 QT: 353 QTc: 421 Interpretive Statements SINUS RHYTHM DIFFUSE ST SEGMENT ELEVATION SUSPICIOUS FOR PERICARDITIS ABNORMAL ECG Compared to ECG 06/03/2025 12:17:33 NO SIGNIFICANT CHANGE Electronically Signed On 06-04-2025 07:21:55 CDT by Ranjith Emerson M.D.
[2025-06-03 14:14] LABS: Troponin I < 0.012 ng/mL (0.000-0.034)
[2025-06-03] MEDS: PERFLUTREN LIPID MICROSPHERES 1.5 ML VIAL DILUTED TO 10 ML TOTAL VOLUME IV PUSH (14:31)
--- NOTE | 2025-06-03 14:32 | IVDEFINITY ---
Prior to administration of IV Definity the patient was educated on the risks and benefits of the imaging enhancing agent including potential adverse side effects. The patient verbalized understanding. Allergies were verified. No exclusion criteria were identified and at least one of the following inclusion criteria were met: 1) physician request, 2) patient technically difficult to image (per the [place] [employer] guidelines of two or more segments not discernable within the apical view), or 3) questionable left ventricular function. ?
[2025-06-03 16:00] LABS: Troponin I < 0.012 ng/mL (0.000-0.034)
== END 2025-06-03 16:20 | disposition home or self-care (01) ==
PROVIDERS: Emergency Provider Student in an Organized Health Care Education/Training Program; PCP Internal Medicine
DX: R07.89 Other chest pain (principal); J96.11 Chronic respiratory failure with hypoxia; J61 Pneumoconiosis due to asbestos and other mineral fibers; E78.5 Hyperlipidemia, unspecified; R73.03 Prediabetes; Z85.828 Personal history of other malignant neoplasm of skin; Z98.42 Cataract extraction status, left eye; Z98.41 Cataract extraction status, right eye; Z86.0100 Personal history of colon polyps, unspecified; Z79.899 Other long term (current) drug therapy; I49.1 Atrial premature depolarization; R94.31 Abnormal electrocardiogram [ECG] [EKG]
CPT/HCPCS: 36415; 71045; 80053; 83880; 84484; 85025; 93005; 93308; 96374; 99284; A9270; C8924; Q9957